=== PATIENT | female | born 1950 | race American Indian/Alaskan Native ===

== ENCOUNTER 2016-09-02 08:57 | Inpatient (IN) | payer MEDICARE ==
[2016-09-02] MEDS ORDERED: DULCOLAX PR PRN (11:19)
[2016-09-02] MEDS ORDERED: ZOFRAN IV PRN (11:19)
[2016-09-02] MEDS ORDERED: MILK OF MAGNESIA PO PRN (11:19)
--- NOTE | 2016-09-02 11:46 | History and Physical Report ---
History of Present Illness Chief complaint: [place] from nephrology clinic for worsening renal function History of present illness: 65-year-old woman with past medical history of htn who was following up in nephrology clinic . She had a creatinine of about 1.4 and her most recent creatinine went up to 5.6. She had been recently recent very to nephrology clinic for mild chronic kidney disease but then recently had a worsening of renal function Of note there was elevated globulin which was concerning for multiple myeloma. Therefore Dr Onofre her ux ui designer called for direct admission. She has been having foul smelling urine for a few days, denies dysuria, denies dark urine, urine production is neither increased or decreased; she thinks the quantity is unchanged. She does admit to poor by mouth intake for the past few days, and poor appetite, she states that foods appear to have lost their taste or taste funny, she also feels generalized weakness. She admits that she appears to be having reflux which he admits is chronic still complaining of some other chronic complaints which include chronic postnasal drip, sinus congestion and bilateral knee pain from osteoarthritis., denies vomiting, denies fever denies chills denies flank pain. Past History Past Medical History: hypertension, other (chronic sinus congestion, bilateral knee osteoarthritis) Past Surgical History: cholecystectomy (in the 1980s) Social history: no significant social history, other (retired used to work in for a [employer]) Family history: cancer (sister of liver cancer) Medications and Allergies Allergies Allergy/AdvReac Type Severity Reaction Status Date / Time No Known Allergies Allergy Unverified 09/02/16 11:36 Home Medications Medication Instructions Recorded Confirmed Last Taken Type Claritin 10 mg 09/02/16 Unknown History Coreg 25 mg BID 09/02/16 09/02/16 Unknown History Omeprazole 40 mg PRN 09/02/16 Unknown History Valsartan-Hctz 320-25 mg Tab PO DAILY 09/02/16 09/02/16 07:00 History Verapamil ER 300 mg 09/02/16 09/01/16 21:30 History Active Meds: Active Medications Acetaminophen (Tylenol) 650 mg PO Q4H PRN PRN Reason: Pain MILD(1-3)/Fever >100.5/HENRY Bisacodyl (Dulcolax) 10 mg CA QDAY PRN PRN Reason: Constipation unrelieved by MOM Heparin Sodium (Porcine) (Heparin) 5,000 unit SUB-Q Q8HR ANN Sodium Chloride (Nacl 0.45% 1000 Ml) 1,000 mls @ 75 mls/hr IV DIRECT ANN Magnesium Hydroxide (Milk Of Magnesia) 30 ml PO Q4H PRN PRN Reason: Constipation Ondansetron HCl (Zofran) 4 mg IV Q8H PRN PRN Reason: N/V unrelieved by Reglan Review of Systems Constitutional: anorexia, fatigue, malaise Ears, nose, mouth and throat: sinus pressure, sinus pain Musculoskeletal: low back pain, arthritis Exam - Constitutional General appearance: Present: no acute distress, well-nourished - EENT Eyes: Present: PERRL ENT: hearing intact, clear oral mucosa - Neck Neck: Present: supple, normal ROM - Respiratory Respiratory effort: normal Respiratory: bilateral: CTA - Cardiovascular Heart Sounds: Present: S1 & S2. Absent: rub, click - Extremities Extremities: pulses symmetrical, No edema Peripheral Pulses: within normal limits - Abdominal General gastrointestinal: Present: soft, non-tender, non-distended, normal bowel sounds Female genitourinary: Present: normal - Integumentary Integumentary: Present: clear, warm, dry - Musculoskeletal Musculoskeletal: gait normal, strength equal bilaterally - Psychiatric Psychiatric: appropriate mood/affect, intact judgment & insight - Neurologic Neurologic: CNII-XII intact, moves all extremities Results - Labs Labs: Labs which were done at the nephrology clinic were reviewed Shows a creatinine of 5.67 total protein of 10 albumin of 3.8 Assessment and Plan Assessment and plan: 65-year-old woman with acute on chronic kidney failure 1. Acute on chronic kidney failure, GFR currently places her at stage V Nephrology has been consulted, will start her on a trial of IV fluids, obtain renal ultrasound Obtain UA and urine sodium and urine creatinine and urine for eosinophils, check renal function Plan for possible kidney biopsy tomorrow 2. Hyperglobulinemia Nephrology aware, obtaining further workup for suspected multiple myeloma Obtain UPEP and SPEP 3. Hypertension Resume home medications 4. Chronic sinus congestion [place] nasal spray 5. DVT prophylaxis Heparin subcutaneous Plan of care discussed with patient/family: Yes
[2016-09-02] MEDS: NACL 0.45% 1000 ML 1,000 ML IV SCH (14:01)
[2016-09-02] MEDS: HEPARIN SUB-Q SCH ×2 (14:01→22:32)
[2016-09-02] MEDS ORDERED: SENOKOT S PO PRN (14:28)
[2016-09-02] MEDS ORDERED: MIRALAX 3350 PO PRN (14:28)
--- NOTE | 2016-09-02 15:34 | Consultation ---
History of Present Illness - Reason for Consult Consult date: 09/02/16 acute renal failure Requesting physician: MARY ANN YEE - History of Present Illness Mrs. Cordero is a 65-year-old female with past medical history significant for hypertension and diet-controlled diabetes was seen in the office by me yesterday on consultation. She had a serum creatinine of 5.6 from a lab done last week. She has been feeling poorly. Her appetite has not been too good for the last week or 2. She has had some nausea as well. Denies any significant nonsteroidal intake. No fever no shortness of breath. She has been complaining of some sinus congestion as well. Patient states that she gets labs done to her PCP every 3-6 months. Apparently her serum creatinine was 1.4 in April of this year. I did was 1.8 on 1 other check. Past History Past Medical History: hypertension, other (chronic sinus congestion, bilateral knee osteoarthritis) Past Surgical History: cholecystectomy (in the 1980s) Social history: no significant social history, other (retired used to work in for a [employer] company) Family history: cancer (sister of liver cancer) Medications and Allergies Allergies Allergy/AdvReac Type Severity Reaction Status Date / Time No Known Allergies Allergy Unverified 09/02/16 11:36 Home Medications Medication Instructions Recorded Confirmed Last Taken Type Claritin 10 mg 09/02/16 Unknown History Coreg 25 mg BID 09/02/16 09/02/16 Unknown History Omeprazole 40 mg PRN 09/02/16 Unknown History Valsartan-Hctz 320-25 mg Tab PO DAILY 09/02/16 09/02/16 07:00 History Verapamil ER 300 mg 09/02/16 09/01/16 21:30 History Active Meds: Active Medications Acetaminophen (Tylenol) 650 mg PO Q4H PRN PRN Reason: Pain MILD(1-3)/Fever >100.5/HENRY Bisacodyl (Dulcolax) 10 mg ID QDAY PRN PRN Reason: Constipation unrelieved by MOM Heparin Sodium (Porcine) (Heparin) 5,000 unit SUB-Q Q8HR ANN Last Admin: 09/02/16 14:01 Dose: 5,000 unit Sodium Chloride (Nacl 0.45% 1000 Ml) 1,000 mls @ 75 mls/hr IV DIRECT ANN Last Admin: 09/02/16 14:01 Dose: 75 mls/hr Miscellaneous Medication (Coreg) 25 mg PO BID ANN Miscellaneous Medication (Omeprazole) 40 mg PO DAILY ANN Miscellaneous Medication (Verapamil Er) 300 mg PO DAILY ANN Ondansetron HCl (Zofran) 4 mg IV Q8H PRN PRN Reason: N/V unrelieved by Reglan Polyethylene Glycol (Miralax [id number]) 17 gm PO QDAY PRN PRN Reason: Constipation Senna/Docusate Sodium (Senokot S) 2 tab PO Q12H PRN PRN Reason: Laxative Effect Sodium Chloride (Deep Sea) 1 spray NS QID ANN Review of Systems All systems: negative (negative except as noted above) Exam - General Appearance General appearance: well-developed, well-nourished, appears stated age EENT: PERRL, mucous membranes moist Neck: Present: neck supple, trachea midline. Absent: JVD/HJR, Masses Respiratory: Clear to Ascultation Heart: regular, normal heart rate Gastrointestinal: Present: normal, normoactive bowel sounds Integumentary: no rash, other (no edema) Neurologic: no focal deficit, alert and oriented x3 Assessment and Plan Impression * Acute renal failure. Her globulin level was also elevated. Total protein was greater than 10. Need to rule out myeloma kidney. She also has some sinus symptoms. Cait's needs to be ruled out as well. She may have a prerenal component as well * Nausea. May be due to her renal failure * History of hypertension * Arthritis Recommendations * Shall check a UA as well as a fractional excretion of sodium. Her urine yesterday showed 2+ dipstick protein and a few red cells. * Patient is currently having a renal ultrasound done. Right kidney is approximately 12 cm with good cortical thickness * Shall check vasculitis workup * Shall also check her coags. She will most likely need a kidney biopsy. * Shall hydrate her gently at this time * If patient renal function continues and/or if her symptoms persists, may need to initiate renal replacement therapy * Hold off on her ARB as well as diuretic for now * Avoid nephrotoxins * Adjust meds for GFR less than 10 at this time * Plan of care discussed with patient at length. Had also discussed with her daughter yesterday * Thank you very much for the consultation. Shall follow along with you
[2016-09-02 17:18] LABS: Basophils % (Auto) 0.4 % (0.0-1.8); Eosinophils % (Auto) 0.9 % (0.0-4.3); Hematocrit 21.7 % (30.3-42.9); Hemoglobin 7.2 gm/dl (10.1-14.3); Mean Corpuscular HGB Conc 33 % (30-34); Mean Corpuscular Hemoglobin 29 pg (28-32); Mean Corpuscular Volume 87 fl (79-97); Platelet Count 178 K/mm3 (140-440); Red Blood Count 2.49 M/mm3 (3.65-5.03); Red Cell Distribution Width 16.8 % (13.2-15.2)
[2016-09-02 17:23] LABS: Albumin 3.3 g/dL (3.9-5); Albumin/Globulin Ratio 0.5 %; Alkaline Phosphatase 45 units/L (35-129); Anion Gap 22 mmol/L; Blood Urea Nitrogen 35 mg/dL (7-17); Calcium 9.7 mg/dL (8.4-10.2); Carbon Dioxide 26 mmol/L (22-30); Chloride 95.2 mmol/L (98-107); Glucose 74 mg/dL (65-100); Potassium 3.7 mmol/L (3.6-5.0); Sodium 139 mmol/L (137-145); Total Protein 10.6 g/dL (6.3-8.2)
[2016-09-02 17:26] LABS: Alanine Aminotransferase < 5 units/L (7-56)
[2016-09-02] MEDS: DEEP SEA NS SCH ×2 (18:12→22:29)
[2016-09-02] MEDS ORDERED: NON-FORMULARY (Coreg 25 MG) PO SCH (22:00)
[2016-09-02] MEDS: COREG PO SCH (22:28)
[2016-09-02 23:45] LABS: Fractional Sodium Excretion 2.7
[2016-09-03 00:10] LABS: Bacteria,Urine 1+ /HPF (Negative); Bilirubin,Urine NEG (Negative); Blood,Urine SM (Negative); Ketones,Urine NEG (Negative); Leukocyte Esterase,Urine MOD (Negative); Mucus,Urine FEW /HPF; Nitrite,Urine NEG (Negative); Urobilinogen,Urine < 2.0 mg/dL (<2.0)
[2016-09-03] MEDS: NACL 0.45% 1000 ML 1,000 ML IV SCH ×2 (02:55→16:22)
[2016-09-03] MEDS: HEPARIN SUB-Q SCH (05:23)
--- NOTE | 2016-09-03 06:54 | Admit Criteria Form ---
Admission Criteria Documentation: RENAL FAILURE, ACUTE Clinical Indications for Admission to Inpatient Care ( Place 'X' for any and all applicable criteria): Admission is indicated for ALL (if I & II) or III of the following [A](2)(3)(4)( 5)(6)(7): [ ]I. Acute renal failure as indicated by ANY ONE of the following: [ ]a) A 3-fold rise in serum creatinine from baseline [ ]b) Serum creatinine greater than 4 mg/dL (354 micromoles/L) with an acute rise greater than 0.5 mg/dL (44.2 micromoles/L) [ ]c) Reduction of more than 75% in estimated glomerular filtration rate from baseline [ ]d) Estimated glomerular filtration rate less than 35 mL/min/1.73m2 (0.59mL/sec/1.73m2)in a child up to 18 years of age [ ]e) Anuria indicated by ALL of the following: [ ]i) Adequate volume status [ ]ii) Cessation of urine output indicated by ANY ONE of the following: [ ]1) Urine output less than 0.3 mL/kg/hr for 24 hours [ ]2) Anuria (urine output less than 0.1 mL/kg/ hr) for 12 hours [ ] II. Renal failure cannot be managed in an outpatient setting or observational care setting as indicating by ANY ONE of the following: [ ]a) Altered mental status that is severe or persistent [ ]b) Volume overload or Respiratory distress (eg, clinically significant pulmonary edema) that is severe or persistent [ ]c) Cardiac arrhythmias of immediate concern [ ]d) Hemodynamic instability [ ]e) Clinically significant electrolyte abnormality that requires inpatient care (eg, hyperkalemia with severe ECG findings)[B] [ ]f) Clinically significant metabolic abnormality (eg, acidosis) that is severe or persistent [ ]g) Acute treatment of renal failure (eg, renal replacement therapy) not feasible or appropriate in observational care setting [ ]h) Clinical situation too unstable or uncertain (eg, inadequate urine output, ongoing decline in renal function, etiology unclear) [ ]i) Necessary support and caregiver ability to comply with outpatient treatment cannot be arranged in observation care timeframe (eg, within 24 hours) [ ]j) Other significant finding or clinical condition judged not to be within scope of observation care [ X]III.General contraindications and/or Inappropriate clinical situations for Observational Care in patients with Acute Renal Failure, when ANY ONE of the following is required: [ X]a) Prediction of prolongation of LOS based on ANY ONE of the following may be considered as a contraindication for observational care 2, 3, 4, 5, 6, 7, 8 , 9, 10, 11 [X ]i) Age > 65 yrs. [ ]ii) Patient arriving by ambulance [ ]iii) Patient with high acuity [ ]iv) Patient requiring vital sign monitoring [ ]v) Patient on IV medication [ ]b) Systolic blood pressures 180mmHg 3,12 [ ]c) Patient with altered mental status including delirium and other alteration of consciousness, (3) [ ]d) Patient whose discharge disposition will be to a longterm home or rehabilitation home should not be managed in Emergency Department Observation Unit. CMS rule requires 3 days hospital stay before such placement.3,13 [ ]e) Patient with failure to thrive due to broad array of etiologies 3, 16,17 [ ]f) Inability to ambulate 3,14 Extended stay beyond goal length of stay may be needed for(13) [ ]a) Continuing uremic complications [ ]b) Care for comorbidities [ ]c) acute renal failure [ ]d) Need for dialysis The original [employer] content created by [employer] has been revised. The portions of the content which have been revised are identified through the use of italic text or in bold, and [facility] has neither reviewed nor approved the modified material. All other unmodified content is copyright [employer]. Please see references footnoted in the original [employer] edition 2016 Admission Criteria Met: Yes
[2016-09-03 07:42] LABS: Basophils % (Auto) 0.6 % (0.0-1.8); Hematocrit 21.1 % (30.3-42.9); Hemoglobin 6.9 gm/dl (10.1-14.3); Mean Corpuscular HGB Conc 33 % (30-34); Mean Corpuscular Hemoglobin 28 pg (28-32); Mean Corpuscular Volume 87 fl (79-97); Platelet Count 167 K/mm3 (140-440); Red Blood Count 2.44 M/mm3 (3.65-5.03); Red Cell Distribution Width 16.3 % (13.2-15.2); White Blood Count 5.5 K/mm3 (4.5-11.0)
[2016-09-03 07:49] LABS: INR 1.13 (0.87-1.13)
[2016-09-03 07:50] LABS: Partial Thromboplastin Time 40.7 Sec. (24.2-36.6)
[2016-09-03 07:53] LABS: Albumin/Globulin Ratio 0.4 %; Alkaline Phosphatase 40 units/L (35-129); Anion Gap 22 mmol/L; BUN/Creatinine Ratio 7.29; Blood Urea Nitrogen 35 mg/dL (7-17); Calcium 9.4 mg/dL (8.4-10.2); Carbon Dioxide 25 mmol/L (22-30); Chloride 96.2 mmol/L (98-107); Glucose 74 mg/dL (65-100); Potassium 3.6 mmol/L (3.6-5.0); Sodium 140 mmol/L (137-145); Total Protein 9.9 g/dL (6.3-8.2)
[2016-09-03 08:04] LABS: Alanine Aminotransferase < 5 units/L (7-56)
[2016-09-03] MEDS: DEEP SEA NS SCH ×3 (09:29→21:21)
[2016-09-03] MEDS: CALAN SR PO SCH ×2 (09:30→09:31)
[2016-09-03] MEDS: PROTONIX PO SCH (09:31)
[2016-09-03] MEDS: COREG PO SCH ×2 (09:32→21:21)
--- NOTE | 2016-09-03 09:44 | Ultrasound Report ---
ULTRASOUND RENAL INDICATION: ALEX. COMPARISON: None similar. FINDINGS: Renal sonography suggests mild increased renal cortical echogenicity. Grossly preserved contours. No hydronephrosis. RIGHT KIDNEY measures 12.1 x 5.3 x 5 cm with cortical thickness of 1.5 cm. Approximately 1.8 x 1 cm cortical cyst superiorly, image 14 and a 2.1 x 1.2 cm cortical cyst inferiorly, image 2 noted. LEFT KIDNEY estimated at 11.9 x 5.4 x 4.4 cm with cortical thickness of 1.6 cm. At least 2 cortical cysts superiorly measuring approximately 1.5 cm, image 24 and 2.5 x 1.3 cm, image 32. Another approximately 1 cm cortical cyst inferiorly also seen, image 22. URINARY BLADDER suboptimally distended and assessed. CONCLUSION: Small bilateral renal cysts and mild underlying medical renal disease sonographically without acute renal abnormality. Please correlate. Thank you for the opportunity to participate in this patient's care.
[2016-09-03] MEDS ORDERED: NON-FORMULARY (Omeprazole 40 MG) PO SCH (10:00)
[2016-09-03] MEDS ORDERED: VERAPAMIL 300 MG PO SCH (10:00)
[2016-09-03] MEDS ORDERED: NACL 0.9% 250ML 250 ML ONE (11:47)
--- NOTE | 2016-09-03 13:11 | Progress Note ---
Assessment and Plan - Patient Problems (1) Acute on chronic kidney failure Current Visit: Yes Status: Acute Qualifiers: Acute renal failure type: A Chronic kidney disease stage: C Plan to address problem: ? cause for worsening renal function. May be prerenal? int nephritis or GN or paraproteinemia. Discussed with pt and daughter in detail about the work up including kidney biopsy-informed of the risk and benefit of kidney biopsy. Stop Heparin. Discussed with Dr. Waterman-hospitalist. Pt has severe symptomatic anemia-suggest hematology consult- may need work up for hyperproteinemia including bone marrow. Discussed with - lab head. Continue present hydration (2) Anemia Current Visit: Yes Status: Acute Qualifiers: Anemia type: A Iron deficiency anemia type: I Vitamin B12 deficiency anemia type: V Folate deficiency anemia type: F Bone marrow failure anemia type: B Hemolytic anemia type: H Other causes of anemia: O Plan to address problem: pt is hesitant to get PRBC at present (3) HTN (hypertension) Current Visit: Yes Status: Acute Qualifiers: Hypertension type: H Plan to address problem: BP under control. Continue present meds. If pt has constipation problem- may consider switching verapamil to different CCB. (4) Hyperproteinemia Current Visit: Yes Status: Acute (5) Nausea Current Visit: Yes Status: Acute Subjective Date of service: 09/03/16 Interval history: pt is alert, oriented, feels weak and tired. Denies CP or SOB. C/O nausea, poor appetite Objective - Vital Signs Vital signs: Vital Signs - 12hr 09/03/16 09/03/16 09/03/16 08:00 09:30 09:31 Temperature 98.1 F Pulse Rate 74 74 Pulse Rate [ 74 Left Radial] Respiratory 18 Rate Blood Pressure 160/98 160/98 Blood Pressure 160/98 [Left Radial Artery] O2 Sat by Pulse 98 Oximetry 09/03/16 09:32 Temperature Pulse Rate 74 Pulse Rate [ Left Radial] Respiratory Rate Blood Pressure 160/98 Blood Pressure [Left Radial Artery] O2 Sat by Pulse Oximetry - General Appearance General appearance: well-developed EENT: mucous membranes moist Neck: no JVD, supple Respiratory: Present: Clear to Ascultation Cardiology: regular, systolic murmur Gastrointestinal: normoactive bowel sounds Neurologic: alert and oriented x3 Musculoskeletal: other (no edema) - Lab 09/03/16 06:59 09/03/16 06:59 Most recent lab results Calcium 9.4 mg/dL (8.4-10.2) 09/03/16 06:59 Urine Creatinine 82.7 mg/dL (0.1-20.0) H 09/02/16 23:00 Urine Sodium 77 mEq/L 09/02/16 23:00 Urine Total Protein 198 mg/dL (5-11.8) H 09/02/16 23:00 - Imaging Kidney/bladder ultrasound: report reviewed
[2016-09-03] MEDS ORDERED: NACL 0.9% 500 ML 500 ML IV ONE (14:00)
--- NOTE | 2016-09-03 14:06 | Progress Note ---
Assessment and Plan Assessment and plan: 65-year-old woman with acute on chronic kidney failure 1. Acute on chronic kidney failure, GFR currently places her at stage V Nephrology has been consulted, will start her on a trial of IV fluids, obtain renal ultrasound UA negative, no casts seen, urine eosinophils negative, fup ANCA, complement level, DS-DNA, fup renal US Plan for possible kidney biopsy tomorrow 2. Hyperglobulinemia Nephrology aware, obtaining further workup for suspected multiple myeloma Follow-up UPEP and SPEP Hematology consults 3. Hypertension Resume home medications 4. Chronic sinus congestion [place] nasal spray 5. Anemia of chronic Disease -transfuse 1 unit prbc fup hg DVT prophylaxis Heparin subcutaneous History Interval history: Admits to fatigue and malaise. Has no other complaints Hospitalist Physical - Physical exam Narrative exam: General: Patient appears well in no distress HEENT: MMM, EOMI cardiac: S1-S2 heard lungs: clear to auscultation, abdomen: soft, nontender, nondistended bowel sounds positive extremities: no edema clubbing or cyanosis Skin: no rash or lesion Neuro: no focal deficit Psych: appropriate behavior and mood, cognition intact - Constitutional Vitals: Temp Pulse Resp BP Pulse Ox 98.1 F 74 18 160/98 98 09/03/16 08:00 09/03/16 09:32 09/03/16 08:00 09/03/16 09:32 09/03/16 08:00 General appearance: Present: no acute distress, well-nourished Results - Labs CBC & Chem 7: 09/04/16 06:28 09/03/16 06:59 Labs: Laboratory Last Values WBC 5.5 K/mm3 (4.5-11.0) 09/03/16 06:59 RBC 2.44 M/mm3 (3.65-5.03) L 09/03/16 06:59 Hgb 6.9 gm/dl (10.1-14.3) L 09/03/16 06:59 Hct 21.1 % (30.3-42.9) L 09/03/16 06:59 MCV 87 fl (79-97) 09/03/16 06:59 MCH 28 pg (28-32) 09/03/16 06:59 MCHC 33 % (30-34) 09/03/16 06:59 RDW 16.3 % (13.2-15.2) H 09/03/16 06:59 Plt Count 167 K/mm3 (140-440) 09/03/16 06:59 Lymph % (Auto) 51.4 % (13.4-35.0) H 09/03/16 06:59 [place] % (Auto) 8.9 % (0.0-7.3) H 09/03/16 06:59 Eos % (Auto) 1.0 % (0.0-4.3) 09/03/16 06:59 Baso % (Auto) 0.6 % (0.0-1.8) 09/03/16 06:59 Lymph # 2.8 K/mm3 (1.2-5.4) 09/03/16 06:59 [place] # 0.5 K/mm3 (0.0-0.8) 09/03/16 06:59 Eos # 0.1 K/mm3 (0.0-0.4) 09/03/16 06:59 Baso # 0.0 K/mm3 (0.0-0.1) 09/03/16 06:59 Seg Neutrophils % 38.1 % (40.0-70.0) L 09/03/16 06:59 Seg Neutrophils # 2.1 K/mm3 (1.8-7.7) 09/03/16 06:59 PT 14.4 Sec. (12.2-14.9) 09/03/16 06:59 INR 1.13 (0.87-1.13) 09/03/16 06:59 APTT 40.7 Sec. (24.2-36.6) H 09/03/16 06:59 Sodium 140 mmol/L (137-145) 09/03/16 06:59 Potassium 3.6 mmol/L (3.6-5.0) 09/03/16 06:59 Chloride 96.2 mmol/L (98-107) L 09/03/16 06:59 Carbon Dioxide 25 mmol/L (22-30) 09/03/16 06:59 Anion Gap 22 mmol/L 09/03/16 06:59 BUN 35 mg/dL (7-17) H 09/03/16 06:59 Creatinine 4.8 mg/dL (0.7-1.2) H 09/03/16 06:59 Estimated GFR 11 ml/min 09/03/16 06:59 BUN/Creatinine Ratio 7.29 % 09/03/16 06:59 Glucose 74 mg/dL (65-100) 09/03/16 06:59 Calcium 9.4 mg/dL (8.4-10.2) 09/03/16 06:59 Total Bilirubin 0.20 mg/dL (0.1-1.2) 09/03/16 06:59 AST 10 units/L (5-40) 09/03/16 06:59 ALT < 5 units/L (7-56) L 09/03/16 06:59 Alkaline Phosphatase 40 units/L (35-129) 09/03/16 06:59 Total Protein 9.9 g/dL (6.3-8.2) H 09/03/16 06:59 Albumin 3.0 g/dL (3.9-5) L 09/03/16 06:59 Albumin/Globulin Ratio 0.4 % 09/03/16 06:59 Urine Color Straw (Yellow) 09/02/16 23:00 Urine Turbidity Clear (Clear) 09/02/16 23:00 Urine pH 7.0 (5.0-7.0) 09/02/16 23:00 Ur Specific [place] 1.009 (1.003-1.030) 09/02/16 23:00 Urine Protein 30 mg/dl mg/dL (Negative) 09/02/16 23:00 Urine Glucose (UA) Neg mg/dL (Negative) 09/02/16 23:00 Urine Ketones Neg mg/dL (Negative) 09/02/16 23:00 Urine Blood Sm (Negative) 09/02/16 23:00 Urine Nitrite Neg (Negative) 09/02/16 23:00 Urine Bilirubin Neg (Negative) 09/02/16 23:00 Urine Urobilinogen < 2.0 mg/dL (<2.0) 09/02/16 23:00 Ur Leukocyte Esterase Mod (Negative) 09/02/16 23:00 Urine WBC (Auto) 6.0 /HPF (0.0-6.0) 09/02/16 23:00 Urine RBC (Auto) 2.0 /HPF (0.0-6.0) 09/02/16 23:00 U Epithel Cells (Auto) 2.0 /HPF (0-13.0) 09/02/16 23:00 Urine Bacteria (Auto) 1+ /HPF (Negative) 09/02/16 23:00 Urine Mucus Few /HPF 09/02/16 23:00 Urine Eosinophils None seen (None Seen) 09/02/16 23:00 Urine Creatinine 82.7 mg/dL (0.1-20.0) H 09/02/16 23:00 Protein/Creatinin Ratio 2.39 09/02/16 23:00 Urine Sodium 77 mEq/L 09/02/16 23:00 Fraction Sodium Excret 2.7 09/02/16 23:00 Urine Total Protein 198 mg/dL (5-11.8) H 09/02/16 23:00 Hepatitis A IgM Ab Non-reactive (NonReactive) 09/02/16 16:38 Hep Bs Antigen Non-reactive (Negative) 09/02/16 16:38 Hep B Core IgM Ab Non-reactive (NonReactive) 09/02/16 16:38 Hepatitis C Antibody Non-reactive (NonReactive) 09/02/16 16:38 Blood Type AB POSITIVE 09/03/16 11:03 Antibody Screen TNR 09/03/16 11:03 HAL Antibody Screen Negative 09/03/16 11:03 Crossmatch See Detail 09/03/16 11:03
[2016-09-03 16:30] LABS: Total Iron Binding Capacity 242.2 mcg/dL (250-450)
[2016-09-03] MEDS: TYLENOL PO PRN (21:22)
[2016-09-04 06:49] LABS: Basophils % (Auto) 0.5 % (0.0-1.8); Eosinophils % (Auto) 1.2 % (0.0-4.3); Hematocrit 24.8 % (30.3-42.9); Hemoglobin 8.2 gm/dl (10.1-14.3); Mean Corpuscular HGB Conc 33 % (30-34); Mean Corpuscular Hemoglobin 28 pg (28-32); Mean Corpuscular Volume 85 fl (79-97); Platelet Count 155 K/mm3 (140-440); Red Blood Count 2.93 M/mm3 (3.65-5.03); Red Cell Distribution Width 16.1 % (13.2-15.2); White Blood Count 5.6 K/mm3 (4.5-11.0)
--- NOTE | 2016-09-04 07:06 | Progress Note ---
Assessment and Plan Assessment and plan: 65-year-old woman with acute on chronic kidney failure 1. Acute on chronic kidney failure, GFR currently places her at stage V Nephrology has been consulted, will start her on a trial of IV fluids, obtain renal ultrasound UA negative, no casts seen, urine eosinophils negative, fup ANCA, complement level, DS-DNA, fup renal US For kidney biopsy today 2. Hyperglobulinemia Nephrology aware, obtaining further workup for suspected multiple myeloma fup UPEP and SPEP Hematology input appreciated, plan for bone marrow biopsy, patient is hesitant about getting it and would like to wait. 3. Accelerated Hypertension Continue beta twyla and verapamil, BALTA inhibitor held due to acute renal failure Add hydralazine 4. Chronic sinus congestion [place] nasal spray 5. Anemia of chronic Disease -transfused 1 unit prbc With adequate rise in hemoglobin DVT prophylaxis Heparin subcutaneous History Interval history: Admits to fatigue which is improved. Has no other complaints Hospitalist Physical - Physical exam Narrative exam: General: Patient appears well in no distress HEENT: MMM, EOMI cardiac: S1-S2 heard lungs: clear to auscultation, abdomen: soft, nontender, nondistended bowel sounds positive extremities: no edema clubbing or cyanosis Skin: no rash or lesion Neuro: no focal deficit Psych: appropriate behavior and mood, cognition intact - Constitutional Vitals: Temp Pulse Resp BP Pulse Ox 98.2 F 58 L 16 164/89 98 09/04/16 06:11 09/04/16 06:11 09/04/16 06:11 09/04/16 06:11 09/03/16 22:00 General appearance: Present: no acute distress, well-nourished Results - Labs CBC & Chem 7: 09/04/16 06:28 09/03/16 06:59 Labs: Laboratory Last Values WBC 5.6 K/mm3 (4.5-11.0) 09/04/16 06:28 RBC 2.93 M/mm3 (3.65-5.03) L 09/04/16 06:28 Hgb 8.2 gm/dl (10.1-14.3) L 09/04/16 06:28 Hct 24.8 % (30.3-42.9) L 09/04/16 06:28 MCV 85 fl (79-97) 09/04/16 06:28 MCH 28 pg (28-32) 09/04/16 06:28 MCHC 33 % (30-34) 09/04/16 06:28 RDW 16.1 % (13.2-15.2) H 09/04/16 06:28 Plt Count 155 K/mm3 (140-440) 09/04/16 06:28 Lymph % (Auto) 44.2 % (13.4-35.0) H 09/04/16 06:28 [place] % (Auto) 9.6 % (0.0-7.3) H 09/04/16 06:28 Eos % (Auto) 1.2 % (0.0-4.3) 09/04/16 06:28 Baso % (Auto) 0.5 % (0.0-1.8) 09/04/16 06:28 Lymph # 2.5 K/mm3 (1.2-5.4) 09/04/16 06:28 [place] # 0.5 K/mm3 (0.0-0.8) 09/04/16 06:28 Eos # 0.1 K/mm3 (0.0-0.4) 09/04/16 06:28 Baso # 0.0 K/mm3 (0.0-0.1) 09/04/16 06:28 Seg Neutrophils % 44.5 % (40.0-70.0) 09/04/16 06:28 Seg Neutrophils # 2.5 K/mm3 (1.8-7.7) 09/04/16 06:28 PT 14.4 Sec. (12.2-14.9) 09/03/16 06:59 INR 1.13 (0.87-1.13) 09/03/16 06:59 APTT 40.7 Sec. (24.2-36.6) H 09/03/16 06:59 Sodium 140 mmol/L (137-145) 09/03/16 06:59 Potassium 3.6 mmol/L (3.6-5.0) 09/03/16 06:59 Chloride 96.2 mmol/L (98-107) L 09/03/16 06:59 Carbon Dioxide 25 mmol/L (22-30) 09/03/16 06:59 Anion Gap 22 mmol/L 09/03/16 06:59 BUN 35 mg/dL (7-17) H 09/03/16 06:59 Creatinine 4.8 mg/dL (0.7-1.2) H 09/03/16 06:59 Estimated GFR 11 ml/min 09/03/16 06:59 BUN/Creatinine Ratio 7.29 % 09/03/16 06:59 Glucose 74 mg/dL (65-100) 09/03/16 06:59 Calcium 9.4 mg/dL (8.4-10.2) 09/03/16 06:59 Iron 56 ug/dL (37-170) 09/03/16 06:59 TIBC 242.20 mcg/dL (250-450) L 09/03/16 06:59 % Saturation 23.12 % 09/03/16 06:59 Transferrin 173 mg/dl (192-382) L 09/03/16 06:59 Ferritin 200.9 ng/mL (13.0-400.0) 09/03/16 17:19 Total Bilirubin 0.20 mg/dL (0.1-1.2) 09/03/16 06:59 AST 10 units/L (5-40) 09/03/16 06:59 ALT < 5 units/L (7-56) L 09/03/16 06:59 Alkaline Phosphatase 40 units/L (35-129) 09/03/16 06:59 Total Protein 9.9 g/dL (6.3-8.2) H 09/03/16 06:59 Albumin 3.0 g/dL (3.9-5) L 09/03/16 06:59 Albumin/Globulin Ratio 0.4 % 09/03/16 06:59 Vitamin B12 305.3 pg/mL (211-911) 09/03/16 17:19 Folate 9.82 ng/mL (7.3-26.0) 09/03/16 17:19 Urine Color Straw (Yellow) 09/02/16 23:00 Urine Turbidity Clear (Clear) 09/02/16 23:00 Urine pH 7.0 (5.0-7.0) 09/02/16 23:00 Ur Specific [place] 1.009 (1.003-1.030) 09/02/16 23:00 Urine Protein 30 mg/dl mg/dL (Negative) 09/02/16 23:00 Urine Glucose (UA) Neg mg/dL (Negative) 09/02/16 23:00 Urine Ketones Neg mg/dL (Negative) 09/02/16 23:00 Urine Blood Sm (Negative) 09/02/16 23:00 Urine Nitrite Neg (Negative) 09/02/16 23:00 Urine Bilirubin Neg (Negative) 09/02/16 23:00 Urine Urobilinogen < 2.0 mg/dL (<2.0) 09/02/16 23:00 Ur Leukocyte Esterase Mod (Negative) 09/02/16 23:00 Urine WBC (Auto) 6.0 /HPF (0.0-6.0) 09/02/16 23:00 Urine RBC (Auto) 2.0 /HPF (0.0-6.0) 09/02/16 23:00 U Epithel Cells (Auto) 2.0 /HPF (0-13.0) 09/02/16 23:00 Urine Bacteria (Auto) 1+ /HPF (Negative) 09/02/16 23:00 Urine Mucus Few /HPF 09/02/16 23:00 Urine Eosinophils None seen (None Seen) 09/02/16 23:00 Urine Creatinine 82.7 mg/dL (0.1-20.0) H 09/02/16 23:00 Protein/Creatinin Ratio 2.39 09/02/16 23:00 Urine Sodium 77 mEq/L 09/02/16 23:00 Fraction Sodium Excret 2.7 09/02/16 23:00 Urine Total Protein 198 mg/dL (5-11.8) H 09/02/16 23:00 Hepatitis A IgM Ab Non-reactive (NonReactive) 09/02/16 16:38 Hep Bs Antigen Non-reactive (Negative) 09/02/16 16:38 Hep B Core IgM Ab Non-reactive (NonReactive) 09/02/16 16:38 Hepatitis C Antibody Non-reactive (NonReactive) 09/02/16 16:38 Blood Type AB POSITIVE 09/03/16 11:03 Antibody Screen TNR 09/03/16 11:03 HAL Antibody Screen Negative 09/03/16 11:03 Crossmatch See Detail 09/03/16 11:03
[2016-09-04] MEDS: APRESOLINE PO SCH ×3 (08:00→23:47)
[2016-09-04] MEDS ORDERED: APRESOLINE IV PRN (08:00)
[2016-09-04] MEDS: COREG PO SCH ×3 (08:55→23:49)
[2016-09-04] MEDS: DEEP SEA NS SCH ×3 (09:00→23:31)
--- NOTE | 2016-09-04 09:22 | Hem/Onc Consultation ---
History of Present Illness - Reason for Consult Consult date: 09/04/16 - History of Present Illness dictated awaiting kidney bx would need epo GI w/u pt wants to wait till kidne bx and labs back to consider epo etc may need bmbx- pt wants to wait Past History Past Medical History: hypertension, other (chronic sinus congestion, bilateral knee osteoarthritis) Past Surgical History: cholecystectomy (in the 1980s) Social history: no significant social history, other (retired used to work in for a [employer] company) Family history: cancer (sister of liver cancer) Medications and Allergies Allergies Allergy/AdvReac Type Severity Reaction Status Date / Time No Known Allergies Allergy Unverified 09/02/16 11:36 Home Medications Medication Instructions Recorded Confirmed Last Taken Type Claritin 10 mg 09/02/16 Unknown History Coreg 25 mg BID 09/02/16 09/02/16 Unknown History Omeprazole 40 mg PRN 09/02/16 Unknown History Valsartan-Hctz 320-25 mg Tab PO DAILY 09/02/16 09/02/16 07:00 History Verapamil ER 300 mg 09/02/16 09/01/16 21:30 History Active Meds: Active Medications Acetaminophen (Tylenol) 650 mg PO Q4H PRN PRN Reason: Pain MILD(1-3)/Fever >100.5/HENRY Last Admin: 09/03/16 21:22 Dose: 650 mg Bisacodyl (Dulcolax) 10 mg IA QDAY PRN PRN Reason: Constipation unrelieved by MOM Carvedilol (Coreg) 25 mg PO Q12HR ANN Last Admin: 09/04/16 08:58 Dose: 25 mg Hydralazine HCl (Apresoline) 10 mg IV Q4H PRN PRN Reason: BP >160/100 Last Admin: 09/04/16 08:59 Dose: 10 mg Hydralazine HCl (Apresoline) 10 mg PO Q8HR [facility] Sodium Chloride (Nacl 0.45% 1000 Ml) 1,000 mls @ 75 mls/hr IV DIRECT ANN Last Admin: 09/03/16 16:22 Dose: 75 mls/hr Ondansetron HCl (Zofran) 4 mg IV Q8H PRN PRN Reason: N/V unrelieved by Reglan Last Admin: 09/03/16 12:12 Dose: 4 mg Pantoprazole Sodium (Protonix) 40 mg PO DAILY [facility] Last Admin: 09/03/16 09:31 Dose: 40 mg Polyethylene Glycol (Miralax 3350) 17 gm PO QDAY PRN PRN Reason: Constipation Senna/Docusate Sodium (Senokot S) 2 tab PO Q12H PRN PRN Reason: Laxative Effect Sodium Chloride ([place]) 1 spray NS QID [facility] Last Admin: 09/03/16 21:21 Dose: Not Given Verapamil HCl (Calan Sr) 180 mg PO QDAY [facility] Last Admin: 09/03/16 09:31 Dose: 180 mg Verapamil HCl ([place] Sr) 120 mg PO QDAY [facility] Last Admin: 09/03/16 09:30 Dose: 120 mg Exam - Constitutional Vitals: Last Vital Signs Temp 98.2 F 09/04/16 06:11 Pulse 58 L 09/04/16 06:11 Resp 16 09/04/16 06:11 BP 164/89 09/04/16 06:11 Pulse Ox 98 09/03/16 22:00 Results - Labs lab Results: Laboratory Results - last 24 hr 09/03/16 09/03/16 09/03/16 06:59 11:03 17:19 WBC RBC Hgb Hct MCV MCH MCHC RDW Plt Count Lymph % (Auto) [place] % (Auto) Eos % (Auto) Baso % (Auto) Lymph # [place] # Eos # Baso # Seg Neutrophils % Seg Neutrophils # Iron 56 TIBC 242.20 L % Saturation 23.12 Transferrin 173 L Ferritin 200.9 Vitamin B12 Folate Blood Type AB POSITIVE Antibody Screen TNR HAL Antibody Screen Negative Crossmatch See Detail 09/03/16 09/03/16 09/04/16 17:19 17:19 06:28 WBC 5.6 RBC 2.93 L Hgb 8.2 L Hct 24.8 L MCV 85 MCH 28 MCHC 33 RDW 16.1 H Plt Count 155 Lymph % (Auto) 44.2 H [place] % (Auto) 9.6 H Eos % (Auto) 1.2 Baso % (Auto) 0.5 Lymph # 2.5 [place] # 0.5 Eos # 0.1 Baso # 0.0 Seg Neutrophils % 44.5 Seg Neutrophils # 2.5 Iron TIBC % Saturation Transferrin Ferritin Vitamin B12 305.3 Folate 9.82 Blood Type Antibody Screen HAL Antibody Screen Crossmatch
[2016-09-04] MEDS ORDERED: VERSED IV ONE (10:06)
[2016-09-04] MEDS ORDERED: SUBLIMAZE IV ONE (10:06)
[2016-09-04] MEDS ORDERED: APRESOLINE ONE (11:04)
[2016-09-04] MEDS ORDERED: APRESOLINE IV ONE (11:28)
--- NOTE | 2016-09-04 11:54 | Cat Scan Report ---
CT BIOPSY RENAL LEFT HISTORY: Acute renal insufficiency. DESCRIPTION OF PROCEDURE: Informed consent was obtained. Sterile technique was utilized. Conscious sedation was accomplished with Versed and fentanyl. The patient was sedated for 20 minutes. Intraobserver time of 20 minutes. Independent cardiorespiratory monitoring by RN. Using CT guidance, a 17-gauge introducer needle was advanced to the inferior pole of the left kidney. Two 18-gauge core biopsies were obtained. Followup scan demonstrated a small amount of perinephric hemorrhage at the biopsy site. No uncontained hemorrhage. The patient tolerated the procedure without difficulty. Impression: Successful CT-guided biopsy at the inferior pole of the left kidney.
[2016-09-04] MEDS: PROTONIX PO SCH (12:22)
--- NOTE | 2016-09-04 12:58 | Progress Note ---
Assessment and Plan Impression * Acute renal failure. Her globulin level was also elevated. Total protein was greater than 10. Need to rule out myeloma kidney. She also has some sinus symptoms. Cait's needs to be ruled out as well. She may have a prerenal component as well * Nausea. May be due to her renal failure * History of hypertension * Arthritis Recommendations * Her urine shows 1+ dipstick protein and small blood. Fractional excretion of sodium is 2.7% . * Her renal ultrasound essentially normal except for small cysts. * Hepatitis B and C are both negative. Awaiting results of other vasculitis workup * Patient had uneventful kidney biopsy today. Small perinephric hematoma was noted. * Shall keep her on complete bed rest for now. Monitor her vitals frequently as well as her H&H . Discussed with patient's nurse at bedside * Shall hydrate her gently at this time * No urgent indication for initiation of renal replacement therapy at this time * Hold off on her ARB as well as diuretic for now * Avoid nephrotoxins * Adjust meds for GFR less than 10 at this time Subjective Date of service: 09/04/16 Interval history: Patient just returned from her kidney biopsy. Denies any flank pain at this time. Her nausea seems to be improving. Denies any shortness of breath Objective - Vital Signs Vital signs: Vital Signs - 12hr 09/04/16 09/04/16 09/04/16 01:10 06:11 08:00 Temperature 98.2 F 98.2 F 98.3 F Pulse Rate 57 L 58 L Pulse Rate [ Intra-Procedure ] Pulse Rate [ 70 Left Radial] Pulse Rate [ Post-Procedure] Respiratory 16 16 18 Rate Respiratory Rate [Intra- Procedure] Respiratory Rate [Post- Procedure] Blood Pressure 169/88 164/89 Blood Pressure [Intra- Procedure] Blood Pressure 188/94 [Left Radial Artery] Blood Pressure [Post-Procedure ] O2 Sat by Pulse 98 Oximetry O2 Sat by Pulse Oximetry [ Intra-Procedure ] O2 Sat by Pulse Oximetry [Post -Procedure] 09/04/16 09/04/16 09/04/16 11:08 11:10 11:12 Temperature Pulse Rate Pulse Rate [ 77 74 Intra-Procedure ] Pulse Rate [ Left Radial] Pulse Rate [ Post-Procedure] Respiratory Rate Respiratory 16 20 Rate [Intra- Procedure] Respiratory Rate [Post- Procedure] Blood Pressure 206/142 Blood Pressure 183/99 134/79 [Intra- Procedure] Blood Pressure [Left Radial Artery] Blood Pressure [Post-Procedure ] O2 Sat by Pulse Oximetry O2 Sat by Pulse 98 99 Oximetry [ Intra-Procedure ] O2 Sat by Pulse Oximetry [Post -Procedure] 09/04/16 09/04/16 09/04/16 11:19 11:24 12:11 Temperature 98.4 F Pulse Rate Pulse Rate [ 73 Intra-Procedure ] Pulse Rate [ 71 Left Radial] Pulse Rate [ 74 Post-Procedure] Respiratory 16 Rate Respiratory 14 Rate [Intra- Procedure] Respiratory 20 Rate [Post- Procedure] Blood Pressure Blood Pressure 129/79 [Intra- Procedure] Blood Pressure 90/50 [Left Radial Artery] Blood Pressure 129/79 [Post-Procedure ] O2 Sat by Pulse Oximetry O2 Sat by Pulse 99 Oximetry [ Intra-Procedure ] O2 Sat by Pulse 99 Oximetry [Post -Procedure] 09/04/16 12:26 Temperature Pulse Rate Pulse Rate [ Intra-Procedure ] Pulse Rate [ 67 Left Radial] Pulse Rate [ Post-Procedure] Respiratory 16 Rate Respiratory Rate [Intra- Procedure] Respiratory Rate [Post- Procedure] Blood Pressure Blood Pressure [Intra- Procedure] Blood Pressure 113/72 [Left Radial Artery] Blood Pressure [Post-Procedure ] O2 Sat by Pulse Oximetry O2 Sat by Pulse Oximetry [ Intra-Procedure ] O2 Sat by Pulse Oximetry [Post -Procedure] - General Appearance General appearance: well-developed, well-nourished, appears stated age EENT: PERRL, mucous membranes moist Neck: no JVD, no thyromegaly, no carotid bruit, supple Respiratory: Present: Clear to Ascultation Cardiology: regular, normal heart rate, S1S2, no murmurs Gastrointestinal: normal, normoactive bowel sounds, other (dressing noted over her left flank. No flank tenderness) Integumentary: no rash, other (no edema) - Lab 09/04/16 06:28 09/03/16 06:59 Most recent lab results Calcium 9.4 mg/dL (8.4-10.2) 09/03/16 06:59 Urine Creatinine 82.7 mg/dL (0.1-20.0) H 09/02/16 23:00 Urine Sodium 77 mEq/L 09/02/16 23:00 Urine Total Protein 198 mg/dL (5-11.8) H 09/02/16 23:00
--- NOTE | 2016-09-04 13:27 | Query- Renal Failure ---
Dear ____[place] Date: 09/04/16 Senior Cost Estimator/CDS:____Arnold / Andry Phone#: [phone] Exercise your independent professional judgment when responding to query. Questions asked do not imply a particular answer is desired or expected. We greatly appreciate your clarification on this issue. Clinical Documentation States: A 65 Y/O F with PMH of HTN came for follow up of CKD but then recently had worsening of renal function. She also feels generalized weakness. PMH HTN, Chronic sinus congestion, B/L knee osteoarthritis. "Assessment and Plan: Acute on chronic kidney failure, GFR currently places her at stage V, Hyperglobulinemia, HTN, Chronic sinus Congestion, DVT prophylaxis. " [H&P, Melania Waterman 09/02/16 ] Clinical Findings Show: LABS : 09/02/2016 09/03/16 BUN 35 35 Creatinine 4.6 4.8 Urine Creatinine 82.7 83.3 GFR 12 11 T.protein 10.6 9.9 Urine Protein 198 - Albumin 3.3 3.0 Please clarify if you mean: Acute Renal Failure with or due to: [ ] Tubular Necrosis [ ] Medullary Necrosis [ ] Vasomotor Nephropathy [ ] Shock Kidney [ ] Tubular Nephrosis [ ] Renal Tubular Stasis [ ] Cortical Necrosis [ ] Acute Renal Failure (unspecified) [ ] Lower Tubular Nephrosis [ x] Other: workup still in progress [ ] Not Applicable Present on Admission: [ x] Yes (Y) [ ] Clinically undeterminable (W) [ ] No (N) Please also document response in your Progress Notes and/or Discharge Summary and indicate if the condition was present on admission. CARLOS
[2016-09-04 17:33] LABS: Hematocrit 25.9 % (30.3-42.9); Hemoglobin 8.6 gm/dl (10.1-14.3)
[2016-09-04] MEDS: TYLENOL PO PRN (23:48)
--- NOTE | 2016-09-05 02:31 | Consultation ---
REFERRING PHYSICIAN: Julieta Figueroa M.D. REASON FOR CONSULTATION: Anemia. HISTORY OF PRESENT ILLNESS: The patient is a 65-year-old female with history of hypertension, who has been patient of Dr. Payne. She was referred for renal insufficiency to Dr. Onofre. She had a creatinine of 1.4, but had a significant jump in the last few weeks to 5.6. She was also noted to have elevated globulin levels. She was admitted to the hospital for worsening renal insufficiency and worsening anemia. Her hemoglobin on admission was 6.9. The patient did undergo lab testing, which included anemia workup. Her B12 was 300 and folate 9.82. Ferritin was 200. Percent saturation 23.12. The patient's total iron binding capacity was 242. Alkaline phosphatase was 40, calcium was 9.4 on admission, albumin was 3.0, total protein of 9.9. Serum protein electrophoresis has been sent. The patient is due for kidney biopsy today. The patient denies any significant pain. She does complain of palpitations. She did receive 1 unit of packed RBC and her hemoglobin today is 8.2. Hematology consult was called for elevated globulin along with severe anemia and renal insufficiency to rule out multiple myeloma. PAST MEDICAL HISTORY: Positive for hypertension. REVIEW OF SYSTEMS: The patient has been having weight loss, and she states she has had ____ weight loss in the last month or so. She does complain of nausea and loss of appetite. FAMILY HISTORY: Positive for liver cancer in the sister. SOCIAL HISTORY: Does not smoke or drink. PHYSICAL EXAMINATION: GENERAL: The patient is a pleasant female, a bit anxious. HEAD AND EARS, NOSE AND THROAT: Reveals pallor noted in the conjunctivae. CHEST: Clear bilaterally. CVS: Regular rate and rhythm. ABDOMEN: Soft, nontender. EXTREMITIES: Has no clubbing, cyanosis or edema. LABORATORY DATA: Lab work as mentioned in the history of present illness. Other pertinent labs, the patient's PTT was 40.7, platelet count 155, white count 5.6, differential within normal limits. ASSESSMENT: Renal insufficiency with anemia and elevated globulin, all pointing towards possibility of multiple myeloma. RECOMMENDATIONS AND PLAN: At this point, I discussed with the patient about her options. I would recommend a bone marrow biopsy. The patient wants to wait that one out. She is due for a kidney biopsy today. The patient also has borderline low B12 level. I suggested B12 injections along with Procrit injections, which she wants to ____. I will follow her while she is in the hospital, but if she gets discharged I will follow up on her serum protein electrophoresis as outpatient and may be setting her up for a bone marrow biopsy as outpatient. We will follow. JOB# [id number] GIAN/TARYN
[2016-09-05] MEDS: NACL 0.45% 1000 ML 1,000 ML IV SCH (05:24)
[2016-09-05] MEDS: APRESOLINE PO SCH (05:32)
[2016-09-05 06:55] LABS: Basophils % (Auto) 0.4 % (0.0-1.8); Eosinophils % (Auto) 0.9 % (0.0-4.3); Hematocrit 25.1 % (30.3-42.9); Hemoglobin 8.3 gm/dl (10.1-14.3); Mean Corpuscular HGB Conc 33 % (30-34); Mean Corpuscular Hemoglobin 28 pg (28-32); Mean Corpuscular Volume 85 fl (79-97); Platelet Count 166 K/mm3 (140-440); Red Blood Count 2.97 M/mm3 (3.65-5.03); Red Cell Distribution Width 16.2 % (13.2-15.2); White Blood Count 6.3 K/mm3 (4.5-11.0)
[2016-09-05 07:07] LABS: BUN/Creatinine Ratio 7.02; Calcium 9.2 mg/dL (8.4-10.2); Chloride 96.5 mmol/L (98-107); Potassium 3.5 mmol/L (3.6-5.0)
--- NOTE | 2016-09-05 09:09 | Progress Note ---
Assessment and Plan Assessment and plan: 65-year-old woman with acute on chronic kidney failure 1. Acute on chronic kidney failure, GFR currently places her at stage V Nephrology input appreciated -Female is 2.7, renal ultrasound essentially normal except small cysts Hepatitis B and C are both negative, vasculitis workup still pending needs wegeners workup given sinus symptoms Status post kidney biopsy 09/04/16 follow-up pathology Continue gentle hydration, ARB has been discontinued as well as diuretic, avoid nephrotoxins Adjust meds for GFR less than 10 at this time 2. Hyperglobulinemia Nephrology aware, obtaining further workup for suspected multiple myeloma fup UPEP and SPEP Hematology input appreciated, plan for bone marrow biopsy, patient is hesitant about getting it and would like to wait. 3. Accelerated Hypertension Continue beta twyla and verapamil, BALTA inhibitor held due to acute renal failure Add hydralazine 4. Chronic sinus congestion [place] nasal spray 5. Anemia of chronic Disease -transfused 1 unit prbc With adequate rise in hemoglobin DVT prophylaxis Heparin subcutaneous History Interval history: Admits to fatigue which is improved. Has no other complaints Hospitalist Physical - Physical exam Narrative exam: General: Patient appears well in no distress HEENT: MMM, EOMI cardiac: S1-S2 heard lungs: clear to auscultation, abdomen: soft, nontender, nondistended bowel sounds positive extremities: no edema clubbing or cyanosis Skin: no rash or lesion Neuro: no focal deficit Psych: appropriate behavior and mood, cognition intact - Constitutional Vitals: Temp Pulse Resp BP Pulse Ox 98.4 F 72 19 154/87 97 09/05/16 07:00 09/05/16 07:00 09/05/16 07:00 09/05/16 07:00 09/05/16 07:00 General appearance: Present: no acute distress, well-nourished Results - Labs CBC & Chem 7: 09/05/16 06:08 09/05/16 06:08 Labs: Laboratory Last Values WBC 6.3 K/mm3 (4.5-11.0) 09/05/16 06:08 RBC 2.97 M/mm3 (3.65-5.03) L 09/05/16 06:08 Hgb 8.3 gm/dl (10.1-14.3) L 09/05/16 06:08 Hct 25.1 % (30.3-42.9) L 09/05/16 06:08 MCV 85 fl (79-97) 09/05/16 06:08 MCH 28 pg (28-32) 09/05/16 06:08 MCHC 33 % (30-34) 09/05/16 06:08 RDW 16.2 % (13.2-15.2) H 09/05/16 06:08 Plt Count 166 K/mm3 (140-440) 09/05/16 06:08 Lymph % (Auto) 38.0 % (13.4-35.0) H 09/05/16 06:08 [place] % (Auto) 9.6 % (0.0-7.3) H 09/05/16 06:08 Eos % (Auto) 0.9 % (0.0-4.3) 09/05/16 06:08 Baso % (Auto) 0.4 % (0.0-1.8) 09/05/16 06:08 Lymph # 2.4 K/mm3 (1.2-5.4) 09/05/16 06:08 [place] # 0.6 K/mm3 (0.0-0.8) 09/05/16 06:08 Eos # 0.1 K/mm3 (0.0-0.4) 09/05/16 06:08 Baso # 0.0 K/mm3 (0.0-0.1) 09/05/16 06:08 Seg Neutrophils % 51.1 % (40.0-70.0) 09/05/16 06:08 Seg Neutrophils # 3.2 K/mm3 (1.8-7.7) 09/05/16 06:08 PT 14.4 Sec. (12.2-14.9) 09/03/16 06:59 INR 1.13 (0.87-1.13) 09/03/16 06:59 APTT 40.7 Sec. (24.2-36.6) H 09/03/16 06:59 Sodium 138 mmol/L (137-145) 09/05/16 06:08 Potassium 3.5 mmol/L (3.6-5.0) L 09/05/16 06:08 Chloride 96.5 mmol/L (98-107) L 09/05/16 06:08 Carbon Dioxide 22 mmol/L (22-30) 09/05/16 06:08 Anion Gap 23 mmol/L 09/05/16 06:08 BUN 33 mg/dL (7-17) H 09/05/16 06:08 Creatinine 4.7 mg/dL (0.7-1.2) H 09/05/16 06:08 Estimated GFR 11 ml/min 09/05/16 06:08 BUN/Creatinine Ratio 7.02 % 09/05/16 06:08 Glucose 79 mg/dL (65-100) 09/05/16 06:08 Calcium 9.2 mg/dL (8.4-10.2) 09/05/16 06:08 Iron 56 ug/dL (37-170) 09/03/16 06:59 TIBC 242.20 mcg/dL (250-450) L 09/03/16 06:59 % Saturation 23.12 % 09/03/16 06:59 Transferrin 173 mg/dl (192-382) L 09/03/16 06:59 Ferritin 200.9 ng/mL (13.0-400.0) 09/03/16 17:19 Total Bilirubin 0.20 mg/dL (0.1-1.2) 09/03/16 06:59 AST 10 units/L (5-40) 09/03/16 06:59 ALT < 5 units/L (7-56) L 09/03/16 06:59 Alkaline Phosphatase 40 units/L (35-129) 09/03/16 06:59 Total Protein 9.9 g/dL (6.3-8.2) H 09/03/16 06:59 Albumin 3.0 g/dL (3.9-5) L 09/03/16 06:59 Albumin/Globulin Ratio 0.4 % 09/03/16 06:59 Vitamin B12 305.3 pg/mL (211-911) 09/03/16 17:19 Folate 9.82 ng/mL (7.3-26.0) 09/03/16 17:19 Urine Color Straw (Yellow) 09/02/16 23:00 Urine Turbidity Clear (Clear) 09/02/16 23:00 Urine pH 7.0 (5.0-7.0) 09/02/16 23:00 Ur Specific [place] 1.009 (1.003-1.030) 09/02/16 23:00 Urine Protein 30 mg/dl mg/dL (Negative) 09/02/16 23:00 Urine Glucose (UA) Neg mg/dL (Negative) 09/02/16 23:00 Urine Ketones Neg mg/dL (Negative) 09/02/16 23:00 Urine Blood Sm (Negative) 09/02/16 23:00 Urine Nitrite Neg (Negative) 09/02/16 23:00 Urine Bilirubin Neg (Negative) 09/02/16 23:00 Urine Urobilinogen < 2.0 mg/dL (<2.0) 09/02/16 23:00 Ur Leukocyte Esterase Mod (Negative) 09/02/16 23:00 Urine WBC (Auto) 6.0 /HPF (0.0-6.0) 09/02/16 23:00 Urine RBC (Auto) 2.0 /HPF (0.0-6.0) 09/02/16 23:00 U Epithel Cells (Auto) 2.0 /HPF (0-13.0) 09/02/16 23:00 Urine Bacteria (Auto) 1+ /HPF (Negative) 09/02/16 23:00 Urine Mucus Few /HPF 09/02/16 23:00 Urine Eosinophils None seen (None Seen) 09/02/16 23:00 Urine Creatinine 82.7 mg/dL (0.1-20.0) H 09/02/16 23:00 Protein/Creatinin Ratio 2.39 09/02/16 23:00 Urine Sodium 77 mEq/L 09/02/16 23:00 Fraction Sodium Excret 2.7 09/02/16 23:00 Urine Total Protein 198 mg/dL (5-11.8) H 09/02/16 23:00 Hepatitis A IgM Ab Non-reactive (NonReactive) 09/02/16 16:38 Hep Bs Antigen Non-reactive (Negative) 09/02/16 16:38 Hep B Core IgM Ab Non-reactive (NonReactive) 09/02/16 16:38 Hepatitis C Antibody Non-reactive (NonReactive) 09/02/16 16:38 Blood Type AB POSITIVE 09/03/16 11:03 Antibody Screen TNR 09/03/16 11:03 HAL Antibody Screen Negative 09/03/16 11:03 Crossmatch See Detail 09/03/16 11:03
[2016-09-05] MEDS: COREG PO SCH (10:00)
[2016-09-05] MEDS: DEEP SEA NS SCH ×2 (10:00→13:40)
[2016-09-05] MEDS: CALAN SR PO SCH ×3 (10:00→13:44)
[2016-09-05] MEDS: PROTONIX PO SCH (10:00)
--- NOTE | 2016-09-05 11:24 | Discharge Summary ---
Providers - Providers Date of Admission: 09/02/16 11:35 Attending physician: MARY ANN YEE MD 09/02/16 11:19 Consult to Physician [CONS] Routine Consulting Provider: MEL LOGAN Reason For Exam: ALEX Place consult to:: dr. logan Notified:: office Phone number called:: Was contact made?: Yes If yes, spoke with:: herminio Time called:: 14:00 09/03/16 16:42 Consult to Physician [CONS] Routine Consulting Provider: CHILANGO DON Reason For Exam: suspected Multiple myeloma, anemia Place consult to:: Dr price Notified:: yes Phone number called:: [phone] If yes, spoke with:: Salomon Time called:: 17:45 Primary care physician: ARIEL CLARKE Hospitalization Hospital course: 65-year-old woman with acute on chronic kidney failure. She was sent from nephrology clinic as a direct admission for worsening renal function. Patient' s was found to have an elevated creatinine, she was found to have anemia. She went on to have renal ultrasound only showed some small cysts and no other evidence of disease. She also went on to have a kidney biopsy, pathology still pending, she also went on to have multiple serologies for vasculitis and other diseases that could cause kidney failure, and her case given sinusitis workup was also sent for Taylor's.. She was noted to have hyperglobulinemia, for which appropriate studies were sent, she was seen by hematology while in hospital, who recommended her following up with her in outpatient to schedule a bone marrow biopsy. Due to anemia, which was symptomatic she received blood transfusion on patient. Patient's renal function did not improve, but however it stayed stable and did not worsen. Her medications are renally adjusted, she will follow-up with nephrology, and oncology as an outpatient for further treatments. Discharge diagnoses Acute on chronic kidney failure, suspected renal tubular stasis Hyperglobulinemia and knee anemia Accelerated hypertension Chronic sinusitis Anemia of chronic disease requiring transfusion Disposition: TO HOME OR SELFCARE Time spent for discharge: 35 minutes Core Measure Documentation - Palliative Care Palliative Care/ Comfort Measures: Not Applicable - Core Measures Any of the following diagnoses?: none Exam - Constitutional Vitals: Temp Pulse Resp BP Pulse Ox 98.4 F 72 19 154/87 98 09/05/16 07:00 09/05/16 07:00 09/05/16 07:00 09/05/16 07:00 09/05/16 10:00 General appearance: Present: no acute distress, well-nourished - EENT Eyes: Present: PERRL ENT: hearing intact, clear oral mucosa - Neck Neck: Present: supple, normal ROM - Respiratory Respiratory effort: normal Respiratory: bilateral: CTA - Cardiovascular Heart Sounds: Present: S1 & S2. Absent: rub, click - Extremities Extremities: pulses symmetrical, No edema Peripheral Pulses: within normal limits - Abdominal General gastrointestinal: Present: soft, non-tender, non-distended, normal bowel sounds Female genitourinary: Present: normal - Integumentary Integumentary: Present: clear, warm, dry - Musculoskeletal Musculoskeletal: gait normal, strength equal bilaterally - Psychiatric Psychiatric: appropriate mood/affect, intact judgment & insight - Neurologic Neurologic: CNII-XII intact, moves all extremities Plan Follow up with: ARIEL CLARKE MD [Primary Care Provider] - 7 Days MEL LOGAN MD [Staff Physician] - 7 Days CHILANGO DON MD [Staff Physician] - 7 Days Prescriptions: hydrALAZINE [Apresoline TAB] 10 mg PO Q8HR #90 tablet Polyethylene Glycol 3350 [Miralax 3350] 17 gm PO QDAY PRN #30 powd.pack PRN Reason: Constipation Sennosides/Docusate [Senokot S] 2 tab PO Q12H PRN #60 tablet PRN Reason: Laxative Effect Sodium Chloride 0.65% Nasal [Deep Sea NASAL SPRAY] 1 spray NS QID #1 bottle
--- NOTE | 2016-09-05 11:40 | Progress Note ---
Assessment and Plan Impression * Acute renal failure. Her globulin level was also elevated. Total protein was greater than 10. Need to rule out myeloma kidney. She also has some sinus symptoms. Cait's needs to be ruled out as well. She may have a prerenal component as well * Nausea. May be due to her renal failure * History of hypertension * Arthritis Recommendations * Her urine shows 1+ dipstick protein and small blood. Fractional excretion of sodium is 2.7% . Urine protein creatinine ratio approximately 2.4 g/g * Her renal ultrasound essentially normal except for small cysts. * Hepatitis B and C are both negative. Anti-DNA antibody is also negative . Awaiting results of other vasculitis workup * Patient had uneventful kidney biopsy yesterday . Small perinephric hematoma was noted. Her H&H is stable * No urgent indication for initiation of renal replacement therapy at this time * Hold off on her ARB as well as diuretic for now * Avoid nephrotoxins * Adjust meds for GFR less than 10 at this time * Patient advised to avoid exertion for the next 2 weeks. Also advised to report to me if she develops increasing flank pain, hematuria or fever * Okay to discharge patient home from renal standpoint * She will require office follow-up next week Subjective Date of service: 09/05/16 Interval history: Patient is comfortable today. Denies any flank pain. Has not had any gross hematuria. Nausea is better Objective - Vital Signs Vital signs: Vital Signs - 12hr 09/04/16 09/04/16 09/05/16 23:47 23:49 00:28 Temperature 98.6 F Pulse Rate 90 90 Pulse Rate [ 68 Right Radial] Respiratory 18 Rate Blood Pressure 122/70 122/70 Blood Pressure 122/70 [Right Arm] O2 Sat by Pulse 95 Oximetry 09/05/16 09/05/16 09/05/16 05:32 07:00 10:00 Temperature 98.4 F Pulse Rate 80 Pulse Rate [ 72 Right Radial] Respiratory 19 Rate Blood Pressure 140/80 Blood Pressure 154/87 [Right Arm] O2 Sat by Pulse 97 98 Oximetry - General Appearance General appearance: well-developed, well-nourished, appears stated age EENT: PERRL, mucous membranes moist Neck: no JVD, no thyromegaly Respiratory: Present: Clear to Ascultation Cardiology: regular, normal heart rate Gastrointestinal: normal, normoactive bowel sounds Integumentary: no rash, other (no edema) - Lab 09/05/16 06:08 09/05/16 06:08 Most recent lab results Calcium 9.2 mg/dL (8.4-10.2) 09/05/16 06:08 Urine Creatinine 82.7 mg/dL (0.1-20.0) H 09/02/16 23:00 Urine Sodium 77 mEq/L 09/02/16 23:00 Urine Total Protein 198 mg/dL (5-11.8) H 09/02/16 23:00
[2016-09-05 13:43] VITALS: BP 158/90
[2016-09-06 15:55] LABS: Myeloperoxidase Antibody <1.0 AI (<1.0)
[2016-09-06 16:21] LABS: Abnormal Protein Band 1 3.5 g/dL; Abnormal Protein Band 2 0.5 g/dL
== END 2016-09-05 14:57 | disposition home or self-care (01) | DRG 683 ==
LOC: UNDOADMIN 08:57 → 3A 08:57
PROVIDERS: ADMIT Internal Medicine; ATTEND Internal Medicine
PROC: 30233N1 Transfusion of Nonautologous Red Blood Cells into Peripheral Vein, Percutaneous Approach (ICD-10-PCS; principal; 2016-09-03)
DX: N17.9 Acute kidney failure, unspecified (principal); C90.00 Multiple myeloma not having achieved remission; I12.0 Hypertensive chronic kidney disease with stage 5 chronic kidney disease or end stage renal disease; D63.8 Anemia in other chronic diseases classified elsewhere; R09.81 Nasal congestion; E11.22 Type 2 diabetes mellitus with diabetic chronic kidney disease; N18.5 Chronic kidney disease, stage 5; M17.0 Bilateral primary osteoarthritis of knee; E88.09 Other disorders of plasma-protein metabolism, not elsewhere classified; Z90.49 Acquired absence of other specified parts of digestive tract; Z80.8 Family history of malignant neoplasm of other organs or systems
CPT/HCPCS: 36415; 76770; 77012; 80048; 80053; 80074; 81001; 82565; 82570; 82607; 82728; 82747; 83550; 84156; 84165; 84166; 84295; 84300; 85014; 85018; 85025; 85610; 85730; 86021; 86160; 86225; 86850; 86900; 86901; 86920; 89050; J0360; J1644; J2250; J2405; J3010; J7040; J7050; P9016

== ENCOUNTER 2016-10-08 13:36 | Outpatient (CLI) | payer MEDICARE ==
--- NOTE | 2016-10-08 14:15 | XRay Report ---
Chest 2 views: History: Acute kidney failure. Findings: Normal cardiomediastinal silhouette. Trachea is midline. No consolidation, pneumothorax or pleural effusion. Impression: No acute cardiopulmonary findings.
== END 2016-10-08 13:37 | disposition home or self-care (01) ==
LOC: LAB 13:36
PROVIDERS: ATTEND Internal Medicine Nephrology
DX: N17.9 Acute kidney failure, unspecified (principal); I10 Essential (primary) hypertension; F32.9 Major depressive disorder, single episode, unspecified
CPT/HCPCS: 71020

== ENCOUNTER 2016-10-19 15:47 | Inpatient (IN) | payer MEDICARE ==
--- NOTE | 2016-10-19 16:02 | Emergency Department Report ---
Chief Complaint: Nausea/Vomiting/Diarrhea Stated Complaint: NAUSEA,NOT EATING Time Seen by Provider: 10/19/16 15:58 - HPI History of Present Illness: pt brought in by family for nausea and decreased appetite x 1 week. pt is awaiting HD. PT has R chest wall vascular access but HD has not started. - ROS Review of Systems: + fatigue + decrease po intake + R hip pain, after bone marrow biopsy - Exam Physical Exam: PT is alert and appropriate, non toxic. Vascular access noted to R CW steady gait MSE screening note: Focused history and physical exam performed. Due to findings the following was ordered: labs, ekg ED Disposition for MSE Condition: Stable
[2016-10-19 16:53] LABS: Basophils % (Auto) 0.8 % (0.0-1.8); Eosinophils % (Auto) 2.3 % (0.0-4.3); Mean Corpuscular HGB Conc 33 % (30-34); Mean Corpuscular Hemoglobin 29 pg (28-32); Mean Corpuscular Volume 87 fl (79-97); Platelet Count 150 K/mm3 (140-440); Red Blood Count 2.43 M/mm3 (3.65-5.03); Red Cell Distribution Width 18.4 % (13.2-15.2); White Blood Count 7.2 K/mm3 (4.5-11.0)
[2016-10-19 17:11] LABS: Albumin 3.5 g/dL (3.9-5); Albumin/Globulin Ratio 0.5 %; Alkaline Phosphatase 44 units/L (35-129); Anion Gap 29 mmol/L; BUN/Creatinine Ratio 5.72; Blood Urea Nitrogen 95 mg/dL (7-17); Calcium 9.6 mg/dL (8.4-10.2); Carbon Dioxide 17 mmol/L (22-30); Chloride 89.5 mmol/L (98-107); Glucose 56 mg/dL (65-100); Potassium 4.3 mmol/L (3.6-5.0); Sodium 131 mmol/L (137-145); Total Protein 11.1 g/dL (6.3-8.2)
[2016-10-19 17:22] LABS: Alanine Aminotransferase < 5 units/L (7-56)
--- NOTE | 2016-10-19 23:45 | Emergency Department Report ---
HPI - General Chief Complaint: Abdominal Pain Time Seen by Provider: 10/19/16 15:58 - HPI HPI: This is a 65 year-old female presents to the emergency department from home with complaint of continuous nausea and the inability to eat for the past week. The patient has a decreased appetite but when she tries to force herself to eat she is nauseated and will throw up. She denies any significant abdominal pain. She denies any fever, chest pain, shortness of breath, back pain, dysuria. The patient has a history of arthritis, hypertension and chronic kidney disease and "is waiting on dialysis." She has a tunneled Vas-Cath in the right upper chest/neck and says that she was given a number to call for a dialysis center to get started. However they called the nephrology service, [facility], and told them about her symptoms and they were told to come to [facility] for further evaluation. No recent travel or sick contacts at home. She has not taken anything for her symptoms prior to presentation. ED Past Medical Hx - Past Medical History Previous Medical History?: Yes Hx Hypertension: Yes Hx Arthritis: Yes - Social History Smoking Status: Never Smoker Substance Use Type: None - Medications Home Medications: Home Medications Medication Instructions Recorded Confirmed Last Taken Type Carvedilol 25 mg BID 10/19/16 10/19/16 Unknown History Claritin 10 mg PO DAILY 10/19/16 10/19/16 Unknown History Fluticasone 50 mcg BID PRN 10/19/16 10/19/16 Unknown History Omeprazole 40 mg PO 10/19/16 Unknown History Verapamil 300 mg DAILY 10/19/16 10/19/16 Unknown History hydrOXYzine 10 mg BID 10/19/16 10/19/16 Unknown History ED Review of Systems ROS: Stated complaint: NAUSEA,NOT EATING Other details as noted in HPI Comment: All other systems reviewed and negative Constitutional: denies: chills, fever Eyes: denies: eye pain, eye discharge, vision change ENT: denies: ear pain, throat pain Respiratory: denies: cough, shortness of breath, wheezing Cardiovascular: denies: chest pain, palpitations Gastrointestinal: nausea, vomiting. denies: diarrhea Genitourinary: denies: urgency, dysuria, discharge Musculoskeletal: denies: back pain, joint swelling, arthralgia Skin: denies: rash, lesions Neurological: denies: headache, weakness, paresthesias Physical Exam - Physical Exam Vital Signs: Vital Signs 10/19/16 15:55 Temperature 98.2 F Pulse Rate 77 Respiratory 16 Rate Blood Pressure 146/95 O2 Sat by Pulse 100 Oximetry Physical Exam: GENERAL: The patient is well-developed well-nourished. HEENT: Normocephalic. Atraumatic. Extraocular motions are intact. Patient has moist mucous membranes. Pupils equal reactive to light bilaterally. NECK: Supple. Trachea is midline. There is a tunneled Vas-Cath to the right lower neck and upper chest. No surrounding erythema or signs/symptoms of infection. CHEST/LUNGS: Clear to auscultation. There is no respiratory distress noted. HEART/CARDIOVASCULAR: Regular. There is no tachycardia. There is no gallop rub or murmur. ABDOMEN: Abdomen is soft, nontender. Patient has normal bowel sounds. There is no abdominal distention. SKIN: Skin is warm and dry. NEURO: The patient is awake, alert, and oriented. The patient is cooperative. The patient has no focal neurologic deficits. The patient has normal speech. MUSCULOSKELETAL: There is no tenderness or deformity. There is no limitation range of motion. There is no evidence of acute injury. ED Course Vital Signs 10/19/16 15:55 Temperature 98.2 F Pulse Rate 77 Respiratory 16 Rate Blood Pressure 146/95 O2 Sat by Pulse 100 Oximetry - Consultations Consultation #1: I spoke with Dr. Raya, the rn practitioner on-call for [facility], who is aware of the patient's ER visit and agrees with the plan for admission secondary to her nausea, vomiting and probable malnutrition. They will see her on the floor tomorrow but she does not appear to need emergent dialysis. 10/20/16 00:13 ED Medical Decision Making - Lab Data Result diagrams: 10/19/16 16:22 10/19/16 16:22 - Medical Decision Making 65-year-old female presents to the emergency department having not been able to eat or drink over the past week. She can keep down some water but when she tries to force food down she gets nauseous and vomits. Patient last was here in the middle to end of September and had a creatinine at that time of 4. The creatinine is 14 currently with a GFR 3. The patient still makes urine but it is greatly decreased. No electrolytes abnormalities. She will be given some Zofran and will be admitted to the hospital for further evaluation and treatment. Nephrology has been contacted and there will be no emergent dialysis tonight but she will be seen on the floor as a consultation. The patient has been accepted for admission by the hospitalist, Dr. Mandujano. - Differential Diagnosis malignancy, acute tubular necrosis, protein calorie malnutrition Critical Care Time: No Critical care attestation.: If time is entered above; I have spent that time in minutes in the direct care of this critically ill patient, excluding procedure time. ED Disposition Clinical Impression: Malnutrition Nausea and vomiting Qualifiers: Vomiting type: unspecified Vomiting Intractability: unspecified Qualified Code( s): R11.2 - Nausea with vomiting, unspecified Acute on chronic kidney failure Qualifiers: Acute renal failure type: unspecified Chronic kidney disease stage: stage 5, not on chronic dialysis Qualified Code(s): N17.9 - Acute kidney failure, unspecified; N18.5 - Chronic kidney disease, stage 5 Anemia Qualifiers: Anemia type: unspecified type Qualified Code(s): D64.9 - Anemia, unspecified Disposition: -09 OP ADMIT IP TO THIS HOSP Is pt being admited?: Yes Condition: Stable Instructions: Abdominal Pain (ED) Referrals: PRIMARY CARE, [Primary Care Provider] - 3-5 Days Time of Disposition: 00:19
[2016-10-19] MEDS ORDERED: ZOFRAN IV ONE (23:56)
[2016-10-19] MEDS ORDERED: D50W (25GM) IV ONE (23:56)
[2016-10-20] MEDS ORDERED: MILK OF MAGNESIA PO PRN (01:20)
[2016-10-20] MEDS ORDERED: TYLENOL PO PRN (01:20)
[2016-10-20] MEDS ORDERED: DULCOLAX PR PRN (01:20)
--- NOTE | 2016-10-20 01:23 | History and Physical Report ---
History of Present Illness Date of examination: 10/20/16 History of present illness: 65-year-old man with a history of hypertension, chronic kidney disease came to the emergency room with complaints of decreased oral intake over the last one and a half weeks and generalized weakness, her symptoms worsen such came to the emergency room for evaluation. Patient continues to lose weight, status post recent bone marrow biopsy, results are pending. Complaining of pain in the left side of the back, dull, intermittent in nature, unable to say how long it last for, intensity 5/10, no radiation and she cannot identify exacerbating or relieving factor Patient denies chest pain, palpitation, shortness of breath, cough, abdominal pain, hematochezia, dysuria, frequency, focal weakness, dysarthria, fever chills , polydipsia polyuria, hot or cold intolerance, easy bruisability, or rash or bleeding from mucosal membrane, rhinorrhea, epistaxis, earache, tinnitus, blurry vision, eye discharge, anxiety, depression. Other review of systems negative PAST SURGICAL HISTORY:none SOCIAL HISTORY: Denies alcohol, tobacco, drugs FAMILY HISTORY: Hypertension Medications and Allergies Allergies Allergy/AdvReac Type Severity Reaction Status Date / Time No Known Allergies Allergy Verified 10/19/16 15:54 Home Medications Medication Instructions Recorded Confirmed Last Taken Type Carvedilol [Coreg] 25 mg PO BID 10/19/16 10/20/16 1 Day Ago History Fluticasone [Flonase] 1 spray NS QDAY PRN 10/19/16 10/20/16 1 Day Ago History Loratadine [Claritin] 10 mg PO DAILY 10/19/16 10/20/16 1 Day Ago History Omeprazole 40 mg PO DAILY 10/19/16 10/20/16 1 Day Ago History Verapamil ER (Nf) [Verelan Pm (Nf)] 300 mg PO QHS 10/19/16 10/20/16 1 Day Ago History hydrOXYzine HCL [Atarax] 10 mg PO PRN PRN 10/19/16 10/20/16 1 Day Ago History hydrALAZINE [Apresoline TAB] 25 mg PO BID 10/20/16 10/20/16 10/18/16 History Exam - Physical Exam Narrative exam: Gen. appearance: Patient lying in bed, no apparent distress HEENT: Normocephalic, atraumatic, pupils equally round and reactive to light, extraocular movement intact, and no sclericterus,. No JVD or thyromegaly or nodule,neck supple, no carotid bruit ,mucous membranes moist, no exudate or erythema Heart: S1, S2, regular rate and rhythm Lungs: Clear to auscultation bilaterally, breathing comfortable Abdomen: Positive bowel sounds, nontender, nondistended, no organomegaly Extremity: No edema, cyanosis, clubbing Skin: No rash, nodules, warm, dry Neuro: Oriented 3, cranial nerves II-12 intact, speech is fluent, motor and sensory intact - Constitutional Vitals: Temp Pulse Resp BP Pulse Ox 98.2 F 77 16 146/95 100 10/19/16 15:55 10/19/16 15:55 10/19/16 15:55 10/19/16 15:55 10/19/16 15:55 Results - Labs CBC & Chem 7: 10/19/16 16:22 10/19/16 16:22 Labs: Abnormal lab results 10/19/16 10/19/16 Range/Units 16:22 16:22 RBC 2.43 L (3.65-5.03) M/mm3 Hgb 7.0 L (10.1-14.3) gm/dl Hct 21.0 L (30.3-42.9) % RDW 18.4 H (13.2-15.2) % [place] % (Auto) 9.9 H (0.0-7.3) % Sodium 131 L (137-145) mmol/L Chloride 89.5 L (98-107) mmol/L Carbon Dioxide 17 L (22-30) mmol/L BUN 95 H (7-17) mg/dL Creatinine 16.6 H (0.7-1.2) mg/dL Glucose 56 L (65-100) mg/dL ALT < 5 L (7-56) units/L Total Protein 11.1 H (6.3-8.2) g/dL Albumin 3.5 L (3.9-5) g/dL - Imaging and Cardiology EKG: image reviewed Assessment and Plan Acute on chronic renal failure, possible myeloma Back pain Anemia Hypertension Admits medicine Consult renal for dialysis, obtain CAT scan of the abdomen and pelvis Monitor hemoglobin, will probably need transfusion Consult hematology, DVT prophylaxis with SCD
[2016-10-20] MEDS ORDERED: ATIVAN IV ONE ×2 (02:05)
--- NOTE | 2016-10-20 03:02 | Cat Scan Report ---
FINAL REPORT EXAM: CT ABDOMEN PELVIS WO CON HISTORY: back pain, s/p BM biopsy COMPARISON: None available. TECHNIQUE: Contiguous axial images were obtained. Additional sagittal and coronal reformatted images were obtained. FINDINGS: Mild linear scarring at the lung bases. Small hiatal hernia. Gallbladder surgically absent. Mild enlargement of the liver. Spleen and pancreas are grossly unremarkable. Mild nodular thickening of adrenal glands. 1 centimeter right renal cyst. No nephrolithiasis or hydronephrosis bilaterally. Mild wall thickening and fat stranding along the proximal left renal pelvis and ureter. Aorta and IVC normal in caliber. Mild calcification of the aorta. No distal ureteral urinary bladder calculi. There are few pelvic phleboliths. Uterus and ovaries are grossly unremarkable. Trace fluid in the pelvis likely reactive. The appendix is normal in caliber measuring 5 millimeters. No gross focal inflammatory changes the bowel. Mild to moderate degenerative changes of the lumbar spine. Bilateral hip and SI joint spaces are preserved. Patchy marrow attenuation which is nonspecific. No focal bony destructive lesion. IMPRESSION: Mild haziness of the fat along the left renal pelvis with borderline wall thickening left renal pelvis and proximal ureter. Correlation with urinalysis suggested to ensure no active infection. No obstructive uropathy or urolithiasis. Trace fluid in the pelvis, reactive. The appendix is normal in caliber. Large and small bowel loops normal in caliber. Mild moderate diverticulosis of the colon. No diverticulitis. Patchy marrow attenuation lumbar spine. Given the patient's history bone marrow biopsy, this could relate to anemia or infiltrative marrow process such as leukemia. Clinical correlation is needed. Osteopenia could also cause a similar appearance. No focal bony destructive lesion.
[2016-10-20] MEDS ORDERED: VENOFER 100 MG in NACL 0.9% 50 ML IV PRN (09:16)
[2016-10-20] MEDS ORDERED: NACL 0.9% 100 ML IV PRN ×2 (09:16→12:35)
--- NOTE | 2016-10-20 09:23 | Consultation ---
History of Present Illness - Reason for Consult Consult date: 10/20/16 end stage renal disease, hyperkalemia, metabolic acidosis Requesting physician: WIINFRED FERMIN - History of Present Illness 65-year-old man with a history of hypertension, ESRD came to the emergency room with complaints of decreased oral intake over the last one and a half weeks and generalized weakness, her symptoms worsen such came to the emergency room for evaluation. Patient continues to lose weight, with recent myeloma. Complaining of pain in the left side of the back, dull, intermittent in nature, unable to Silverlon O, intensity 5 was 10, no radiation and she cannot identify exacerbating or relieving factor Patient denies chest pain, palpitation, shortness of breath, cough, abdominal pain, hematochezia, dysuria, frequency, focal weakness, dysarthria, fever chills , polydipsia polyuria, hot or cold intolerance, easy bruisability, or rash or bleeding from mucosal membrane, rhinorrhea, epistaxis, earache, tinnitus, blurry vision, eye discharge, anxiety, depression. Other review of systems negative Past History Past Medical History: anemia, ESRD, hypertension, renal failure Past Surgical History: Other (perm cath placement) Social history: denies: prescription drug abuse, IV drug use Family history: hypertension Medications and Allergies Allergies Allergy/AdvReac Type Severity Reaction Status Date / Time No Known Allergies Allergy Verified 10/19/16 15:54 Home Medications Medication Instructions Recorded Confirmed Last Taken Type Carvedilol 25 mg BID 10/19/16 10/19/16 Unknown History Claritin 10 mg PO DAILY 10/19/16 10/19/16 Unknown History Fluticasone 50 mcg BID PRN 10/19/16 10/19/16 Unknown History Omeprazole 40 mg PO 10/19/16 Unknown History Verapamil 300 mg DAILY 10/19/16 10/19/16 Unknown History hydrOXYzine 10 mg BID PRN 10/19/16 10/19/16 Unknown History hydrALAZINE [Apresoline TAB] PO BID 10/20/16 10/18/16 History Active Meds: Active Medications Acetaminophen (Tylenol) 650 mg PO Q4H PRN PRN Reason: Pain MILD(1-3)/Fever >100.5/HENRY Bisacodyl (Dulcolax) 10 mg UT QDAY PRN PRN Reason: Constipation unrelieved by MOM Epoetin Ken (Epogen) 20,000 unit IV DUNCAN PRN PRN Reason: hemodialysis Iron Sucrose 100 mg/ Sodium (Chloride) 55 mls @ 100 mls/hr IV DUNCAN PRN PRN Reason: hemodialysis Sodium Chloride (Nacl 0.9%) 100 mls @ 999 mls/hr IV DUNCAN PRN PRN Reason: Hypotension Ondansetron HCl (Zofran) 4 mg IV Q8H PRN PRN Reason: N/V unrelieved by Reglan Review of Systems Constitutional: fatigue, weakness, malaise Gastrointestinal: abdominal pain, nausea, vomiting, change in bowel habits Exam - Vital Signs Vital signs: Vital Signs Temp Pulse Resp BP Pulse Ox 98.2 F 77 16 146/95 100 10/19/16 15:55 10/19/16 15:55 10/19/16 15:55 10/19/16 15:55 10/19/16 15:55 - Physical Exam Narrative exam: Gen. appearance: Patient lying in bed, no apparent distress HEENT: Normocephalic, atraumatic, pupils equally round and reactive to light, extraocular movement intact, and no sclericterus,. No JVD or thyromegaly or nodule,neck supple, no carotid bruit ,mucous membranes moist, no exudate or erythema Heart: S1, S2, regular rate and rhythm Lungs: Clear to auscultation bilaterally, breathing comfortable Abdomen: Positive bowel sounds, nontender, nondistended, no organomegaly Extremity: No edema, cyanosis, clubbing Skin: No rash, nodules, warm, dry Neuro: Oriented 3, cranial nerves II-12 intact, speech is fluent, motor and sensory intact Results - Lab Results 10/19/16 16:22 10/19/16 16:22 Most recent lab results Calcium 9.6 mg/dL (8.4-10.2) 10/19/16 16:22 Assessment and Plan Impression: * ESRD * Uremia * Myeloma * Anemia chr disease * metabolic acidosis * HTN Plan: * initiate HD for next 3 days for uremia control * outpatient hd Jovon daniels--MWF * strict i/os * uf as tolerated with hd * daily lytes * epogen if ok with hematology * iron studies * avoid nephrotoxins
--- NOTE | 2016-10-20 09:47 | Admit Criteria Form ---
Admission Criteria Documentation: RENAL FAILURE, ACUTE Clinical Indications for Admission to Inpatient Care ( Place 'X' for any and all applicable criteria): Admission is indicated for ALL (if I & II) or III of the following [A](2)(3)(4)( 5)(6)(7): [X]I. Acute renal failure as indicated by ANY ONE of the following: [ ]a) A 3-fold rise in serum creatinine from baseline [X ]b) Serum creatinine greater than 4 mg/dL (354 micromoles/L) with an acute rise greater than 0.5 mg/dL (44.2 micromoles/L) [ ]c) Reduction of more than 75% in estimated glomerular filtration rate from baseline [ ]d) Estimated glomerular filtration rate less than 35 mL/min/1.73m2 (0.59mL/sec/1.73m2)in a child up to 18 years of age [ ]e) Anuria indicated by ALL of the following: [ ]i) Adequate volume status [ ]ii) Cessation of urine output indicated by ANY ONE of the following: [ ]1) Urine output less than 0.3 mL/kg/hr for 24 hours [ ]2) Anuria (urine output less than 0.1 mL/kg/ hr) for 12 hours [X ] II. Renal failure cannot be managed in an outpatient setting or observational care setting as indicating by ANY ONE of the following: [ ]a) Altered mental status that is severe or persistent [ ]b) Volume overload or Respiratory distress (eg, clinically significant pulmonary edema) that is severe or persistent [ ]c) Cardiac arrhythmias of immediate concern [ ]d) Hemodynamic instability [ ]e) Clinically significant electrolyte abnormality that requires inpatient care (eg, hyperkalemia with severe ECG findings)[B] [ ]f) Clinically significant metabolic abnormality (eg, acidosis) that is severe or persistent [ ]g) Acute treatment of renal failure (eg, renal replacement therapy) not feasible or appropriate in observational care setting [ ]h) Clinical situation too unstable or uncertain (eg, inadequate urine output, ongoing decline in renal function, etiology unclear) [ ]i) Necessary support and caregiver ability to comply with outpatient treatment cannot be arranged in observation care timeframe (eg, within 24 hours) [X ]j) Other significant finding or clinical condition judged not to be within scope of observation care [ ]III.General contraindications and/or Inappropriate clinical situations for Observational Care in patients with Acute Renal Failure, when ANY ONE of the following is required: [ ]a) Prediction of prolongation of LOS based on ANY ONE of the following may be considered as a contraindication for observational care 2, 3, 4, 5, 6, 7, 8 , 9, 10, 11 [ ]i) Age > 65 yrs. [ ]ii) Patient arriving by ambulance [ ]iii) Patient with high acuity [ ]iv) Patient requiring vital sign monitoring [ ]v) Patient on IV medication [ ]b) Systolic blood pressures 180mmHg 3,12 [ ]c) Patient with altered mental status including delirium and other alteration of consciousness, (3) [ ]d) Patient whose discharge disposition will be to a half-way home or rehabilitation home should not be managed in Emergency Department Observation Unit. CMS rule requires 3 days hospital stay before such placement.3,13 [ ]e) Patient with failure to thrive due to broad array of etiologies 3, 16,17 [ ]f) Inability to ambulate 3,14 Extended stay beyond goal length of stay may be needed for(13) [ ]a) Continuing uremic complications [ ]b) Care for comorbidities [ ]c) acute renal failure [ ]d) Need for dialysis The original [email or web address] content created by [email or web address] has been revised. The portions of the content which have been revised are identified through the use of italic text or in bold, and [facility] has neither reviewed nor approved the modified material. All other unmodified content is copyright [facility]. Please see references footnoted in the original [facility] edition 2016 Admission Criteria Met: Yes
[2016-10-20] MEDS ORDERED: LOVENOX SUB-Q SCH (10:00)
[2016-10-20 10:06] LABS: Phosphorous 5.9 mg/dL (2.5-4.5); Total Iron Binding Capacity 187.6 mcg/dL (250-450)
--- NOTE | 2016-10-20 11:04 | Progress Note ---
Hospitalist Physical - Constitutional Vitals: Temp Pulse Resp BP Pulse Ox 98.2 F 75 16 120/79 98 10/20/16 09:46 10/20/16 09:46 10/20/16 09:46 10/20/16 09:46 10/20/16 09:46 Results - Labs CBC & Chem 7: 10/19/16 16:22 10/19/16 16:22 Labs: Laboratory Last Values WBC 7.2 K/mm3 (4.5-11.0) 10/19/16 16:22 RBC 2.43 M/mm3 (3.65-5.03) L 10/19/16 16:22 Hgb 7.0 gm/dl (10.1-14.3) L 10/19/16 16:22 Hct 21.0 % (30.3-42.9) L 10/19/16 16:22 MCV 87 fl (79-97) 10/19/16 16:22 MCH 29 pg (28-32) 10/19/16 16:22 MCHC 33 % (30-34) 10/19/16 16:22 RDW 18.4 % (13.2-15.2) H 10/19/16 16:22 Plt Count 150 K/mm3 (140-440) 10/19/16 16:22 Lymph % (Auto) 28.7 % (13.4-35.0) 10/19/16 16:22 [place] % (Auto) 9.9 % (0.0-7.3) H 10/19/16 16:22 Eos % (Auto) 2.3 % (0.0-4.3) 10/19/16 16:22 Baso % (Auto) 0.8 % (0.0-1.8) 10/19/16 16:22 Lymph # 2.1 K/mm3 (1.2-5.4) 10/19/16 16:22 [place] # 0.7 K/mm3 (0.0-0.8) 10/19/16 16:22 Eos # 0.2 K/mm3 (0.0-0.4) 10/19/16 16:22 Baso # 0.1 K/mm3 (0.0-0.1) 10/19/16 16:22 Seg Neutrophils % 58.3 % (40.0-70.0) 10/19/16 16:22 Seg Neutrophils # 4.2 K/mm3 (1.8-7.7) 10/19/16 16:22 Sodium 131 mmol/L (137-145) L 10/19/16 16:22 Potassium 4.3 mmol/L (3.6-5.0) 10/19/16 16:22 Chloride 89.5 mmol/L (98-107) L 10/19/16 16:22 Carbon Dioxide 17 mmol/L (22-30) L 10/19/16 16:22 Anion Gap 29 mmol/L 10/19/16 16:22 BUN 95 mg/dL (7-17) H 10/19/16 16:22 Creatinine 16.6 mg/dL (0.7-1.2) H 10/19/16 16:22 Estimated GFR 3 ml/min 10/19/16 16:22 BUN/Creatinine Ratio 5.72 % 10/19/16 16:22 Glucose 56 mg/dL (65-100) L 10/19/16 16:22 POC Glucose 143 (70-105) H 10/20/16 02:02 Calcium 9.6 mg/dL (8.4-10.2) 10/19/16 16:22 Phosphorus 5.90 mg/dL (2.5-4.5) H 10/20/16 09:30 Iron 52 ug/dL (37-170) 10/20/16 09:30 TIBC 187.60 mcg/dL (250-450) L 10/20/16 09:30 % Saturation 27.72 % 10/20/16 09:30 Transferrin 134 mg/dl (192-382) L 10/20/16 09:30 Ferritin 421.5 ng/mL (13.0-400.0) H 10/20/16 09:30 Total Bilirubin 0.30 mg/dL (0.1-1.2) 10/19/16 16:22 AST 13 units/L (5-40) 10/19/16 16:22 ALT < 5 units/L (7-56) L 10/19/16 16:22 Alkaline Phosphatase 44 units/L (35-129) 10/19/16 16:22 Total Protein 11.1 g/dL (6.3-8.2) H 10/19/16 16:22 Albumin 3.5 g/dL (3.9-5) L 10/19/16 16:22 Albumin/Globulin Ratio 0.5 % 10/19/16 16:22 PTH Intact 65.25 pg/mL (15-65) H 10/20/16 09:30 Hep Bs Antigen Non-reactive (Negative) 10/20/16 09:30 Hepatitis C Antibody Non-reactive (NonReactive) 10/20/16 09:30
[2016-10-20] MEDS ORDERED: NACL 0.9 (PRIMING MACHINE ONLY DIALYSIS) MC ONE (12:35)
[2016-10-20] MEDS: HEPARIN IV PRN (15:45)
--- NOTE | 2016-10-20 16:34 | Event Note ---
Date: 10/20/16 Patient Seen and evaluated in room and medical records reviewed Admitted with acute renal failure, requiring hemodialysis, nephrology evaluates the patient Patient received hemodialysis, possible discharge in 1-2 days or for an outpatient hemodialysis is scheduled Today she is comfortable in bed no new complaints Vital signs stable, physical examination is unremarkable Continue current management, nephrology evaluation and recommendation noted and appreciated Plan of care discussed with the patient and the nurse
[2016-10-21 06:02] LABS: Basophils % (Auto) 0.7 % (0.0-1.8); Eosinophils % (Auto) 1.4 % (0.0-4.3); Hemoglobin 6.7 gm/dl (10.1-14.3); Mean Corpuscular HGB Conc 34 % (30-34); Mean Corpuscular Hemoglobin 30 pg (28-32); Mean Corpuscular Volume 86 fl (79-97); Platelet Count 128 K/mm3 (140-440); Red Blood Count 2.29 M/mm3 (3.65-5.03); Red Cell Distribution Width 18.1 % (13.2-15.2); White Blood Count 5.7 K/mm3 (4.5-11.0)
[2016-10-21 06:05] LABS: Hematocrit 19.7 % (30.3-42.9)
[2016-10-21 06:12] LABS: BUN/Creatinine Ratio 3.84; Calcium 9.7 mg/dL (8.4-10.2); Chloride 95.6 mmol/L (98-107); Potassium 4.2 mmol/L (3.6-5.0)
--- NOTE | 2016-10-21 07:07 | Progress Note ---
Assessment and Plan Assessment and plan: --Advanced and aggressive multiple myeloma diagnosed on 10/16/2016 per bone marrow studies, Hematology oncology planning chemotherapy as outpatient --Acute renal failure/end-stage renal disease on hemodialysis per schedule Nephrology following --Anemia secondary to renal failure as well as myeloma; type and cross and transfuse 2 units of PRBC during dialysis today --Hypertension; moderate control continue current antihypertensives and when necessary medications --Back pain multiple myeloma related, hematology oncologist planning chemotherapy as outpatient, pain management --DVT prophylaxis; Lovenox --Patient is full CODE STATUS Closely monitor the patient and adjust management as needed Consults and recommendations noted and appreciated Discussed with hematology oncology the plan of care Plan of care discussed with the patient, her nurse and the case management History Interval history: Patient seen and evaluated this morning in her room medical records reviewed No new events reported by nursing staff, patient has significant drop in hemoglobin to 6.7 No evidence of bleeding, patient alert awake oriented 3 not in acute distress, vital signs reviewed Hospitalist Physical - Constitutional Vitals: Temp Pulse Resp BP Pulse Ox 98.2 F 80 21 120/78 94 10/21/16 05:02 10/21/16 05:02 10/21/16 05:02 10/21/16 05:02 10/21/16 05:02 General appearance: Present: no acute distress, well-nourished - EENT Eyes: Present: PERRL, EOM intact - Neck Neck: Present: supple, normal ROM - Respiratory Respiratory effort: normal, labored - Cardiovascular Rhythm: regular Heart Sounds: Present: S1 & S2 - Extremities Extremities: no ischemia Peripheral Pulses: within normal limits - Abdominal General gastrointestinal: soft, non-tender, non-distended, normal bowel sounds - Integumentary Integumentary: Present: clear, warm - Psychiatric Psychiatric: appropriate mood/affect, cooperative - Neurologic Neurologic: CNII-XII intact, moves all extremities Results - Labs CBC & Chem 7: 10/21/16 05:08 10/21/16 05:08 Labs: Laboratory Last Values WBC 5.7 K/mm3 (4.5-11.0) 10/21/16 05:08 RBC 2.29 M/mm3 (3.65-5.03) L 10/21/16 05:08 Hgb 6.7 gm/dl (10.1-14.3) L 10/21/16 05:08 Hct 19.7 % (30.3-42.9) L* 10/21/16 05:08 MCV 86 fl (79-97) 10/21/16 05:08 MCH 30 pg (28-32) 10/21/16 05:08 MCHC 34 % (30-34) 10/21/16 05:08 RDW 18.1 % (13.2-15.2) H 10/21/16 05:08 Plt Count 128 K/mm3 (140-440) L 10/21/16 05:08 Lymph % (Auto) 33.7 % (13.4-35.0) 10/21/16 05:08 [place] % (Auto) 13.6 % (0.0-7.3) H 10/21/16 05:08 Eos % (Auto) 1.4 % (0.0-4.3) 10/21/16 05:08 Baso % (Auto) 0.7 % (0.0-1.8) 10/21/16 05:08 Lymph # 1.9 K/mm3 (1.2-5.4) 10/21/16 05:08 [place] # 0.8 K/mm3 (0.0-0.8) 10/21/16 05:08 Eos # 0.1 K/mm3 (0.0-0.4) 10/21/16 05:08 Baso # 0.0 K/mm3 (0.0-0.1) 10/21/16 05:08 Seg Neutrophils % 50.6 % (40.0-70.0) 10/21/16 05:08 Seg Neutrophils # 2.9 K/mm3 (1.8-7.7) 10/21/16 05:08 Sodium 140 mmol/L (137-145) D 10/21/16 05:08 Potassium 4.2 mmol/L (3.6-5.0) 10/21/16 05:08 Chloride 95.6 mmol/L (98-107) L 10/21/16 05:08 Carbon Dioxide 25 mmol/L (22-30) D 10/21/16 05:08 Anion Gap 24 mmol/L 10/21/16 05:08 BUN 40 mg/dL (7-17) H 10/21/16 05:08 Creatinine 10.4 mg/dL (0.7-1.2) H 10/21/16 05:08 Estimated GFR 4 ml/min 10/21/16 05:08 BUN/Creatinine Ratio 3.84 % 10/21/16 05:08 Glucose 66 mg/dL (65-100) 10/21/16 05:08 POC Glucose 143 (70-105) H 10/20/16 02:02 Calcium 9.7 mg/dL (8.4-10.2) 10/21/16 05:08 Phosphorus 5.90 mg/dL (2.5-4.5) H 10/20/16 09:30 Magnesium 2.00 mg/dL (1.7-2.3) 10/21/16 05:08 Iron 52 ug/dL (37-170) 10/20/16 09:30 TIBC 187.60 mcg/dL (250-450) L 10/20/16 09:30 % Saturation 27.72 % 10/20/16 09:30 Transferrin 134 mg/dl (192-382) L 10/20/16 09:30 Ferritin 421.5 ng/mL (13.0-400.0) H 10/20/16 09:30 Total Bilirubin 0.30 mg/dL (0.1-1.2) 10/19/16 16:22 AST 13 units/L (5-40) 10/19/16 16:22 ALT < 5 units/L (7-56) L 10/19/16 16:22 Alkaline Phosphatase 44 units/L (35-129) 10/19/16 16:22 Total Protein 11.1 g/dL (6.3-8.2) H 10/19/16 16:22 Albumin 3.5 g/dL (3.9-5) L 10/19/16 16:22 Albumin/Globulin Ratio 0.5 % 10/19/16 16:22 PTH Intact 65.25 pg/mL (15-65) H 10/20/16 09:30 Hepatitis A IgM Ab Non-reactive (NonReactive) 10/20/16 09:30 Hep Bs Antigen Non-reactive (Negative) 10/20/16 09:30 Hep B Core IgM Ab Non-reactive (NonReactive) 10/20/16 09:30 Hepatitis C Antibody Non-reactive (NonReactive) 10/20/16 09:30
[2016-10-21] MEDS ORDERED: NACL 0.9% 500 ML 500 ML IV NR (08:00)
--- NOTE | 2016-10-21 08:43 | Progress Note ---
Assessment and Plan Impression: * ESRD * Uremia * Myeloma * Anemia chr disease * metabolic acidosis * HTN Plan: * initiated HD for next 3 days for uremia control * prbcs with hd today * await hematology input * outpatient hd [facility] [place]--[place] * strict i/os * uf as tolerated with hd * daily lytes * epogen if ok with hematology * iron studies * avoid nephrotoxins Subjective Date of service: 10/21/16 Principal diagnosis: esrd Interval history: resting well in bed, events noted Objective - Exam Narrative Exam: Gen. appearance: Patient lying in bed, no apparent distress HEENT: Normocephalic, atraumatic, pupils equally round and reactive to light, extraocular movement intact, and no sclericterus,. No JVD or thyromegaly or nodule,neck supple, no carotid bruit ,mucous membranes moist, no exudate or erythema Heart: S1, S2, regular rate and rhythm Lungs: Clear to auscultation bilaterally, breathing comfortable Abdomen: Positive bowel sounds, nontender, nondistended, no organomegaly Extremity: No edema, cyanosis, clubbing Skin: No rash, nodules, warm, dry Neuro: Oriented 3, cranial nerves II-12 intact, speech is fluent, motor and sensory intact - Vital Signs Vital signs: Vital Signs - 12hr 10/20/16 10/21/16 10/21/16 23:03 00:55 05:02 Temperature 98.9 F 98.2 F Pulse Rate 80 Pulse Rate [ 75 80 Right Radial] Respiratory 20 21 Rate Blood Pressure 142/79 120/78 [Left Arm] O2 Sat by Pulse 97 94 Oximetry 10/21/16 10/21/16 07:55 08:07 Temperature 98.4 F Pulse Rate 76 Pulse Rate [ 76 Right Radial] Respiratory 18 Rate Blood Pressure 124/76 [Left Arm] O2 Sat by Pulse 97 Oximetry - Lab 10/21/16 05:08 10/21/16 05:08 Most recent lab results Calcium 9.7 mg/dL (8.4-10.2) 10/21/16 05:08 Phosphorus 5.90 mg/dL (2.5-4.5) H 10/20/16 09:30 Magnesium 2.00 mg/dL (1.7-2.3) 10/21/16 05:08
[2016-10-21] MEDS ORDERED: NACL 0.9 (PRIMING MACHINE ONLY DIALYSIS) MC ONE (13:23)
--- NOTE | 2016-10-21 14:32 | Consultation ---
History of Present Illness - Reason for Consult Consult date: 10/21/16 Myeloma Requesting physician: KIMBERLEY CATHERINE - History of Present Illness Patient is well known to us. This 65-year-old woman has a history of hypertension and chronic kidney disease. Also had hyper gamma globulinemia and total protein of 11.5g. She had anemia. Had bone marrow on 10/15/16 and it showed multiple myeloma as expected. She was supposed to come to our office on for chemotherapy but before that her Renal failure got worsr and she was admitted to [facility]. She came to the emergency room with complaints of decreased oral intake over the last one and a half weeks and generalized weakness. Patient continues to lose weight. Complaining of pain in the left side of the back, dull, intermittent in nature, unable to say how long it last for, intensity 5/10, no radiation and she cannot identify exacerbating or relieving factor. She needs chemotherapy for myeloma but it can not be given as in-patient or out-patient at [facility] as they do not allow any chemotherapy for any cancer. Patient denies chest pain, palpitation, shortness of breath, cough, abdominal pain, hematochezia, dysuria, frequency, focal weakness, dysarthria, fever chills , polydipsia polyuria, hot or cold intolerance, easy bruisability, or rash or bleeding from mucosal membrane, rhinorrhea, epistaxis, earache, tinnitus, blurry vision, eye discharge, anxiety, depression. Other review of systems negative Past History Past Medical History: anemia, ESRD, hypertension, renal failure Past Surgical History: Other (perm cath placement) Social history: denies: prescription drug abuse, IV drug use Family history: hypertension Medications and Allergies Allergies Allergy/AdvReac Type Severity Reaction Status Date / Time No Known Allergies Allergy Verified 10/19/16 15:54 Home Medications Medication Instructions Recorded Confirmed Last Taken Type Carvedilol [Coreg] 25 mg PO BID 10/19/16 10/20/16 1 Day Ago History Fluticasone [Flonase] 1 spray NS QDAY PRN 10/19/16 10/20/16 1 Day Ago History Loratadine [Claritin] 10 mg PO DAILY 10/19/16 10/20/16 1 Day Ago History Omeprazole 40 mg PO DAILY 10/19/16 10/20/16 1 Day Ago History Verapamil ER (Nf) [Verelan Pm (Nf)] 300 mg PO QHS 10/19/16 10/20/16 1 Day Ago History hydrOXYzine HCL [Atarax] 10 mg PO PRN PRN 10/19/16 10/20/16 1 Day Ago History hydrALAZINE [Apresoline TAB] 25 mg PO BID 10/20/16 10/20/16 10/18/16 History Active Meds: Active Medications Acetaminophen (Tylenol) 650 mg PO Q4H PRN PRN Reason: Pain MILD(1-3)/Fever >100.5/HENRY Bisacodyl (Dulcolax) 10 mg VA QDAY PRN PRN Reason: Constipation unrelieved by MOM Epoetin Ken (Epogen) 20,000 unit IV DUNCAN PRN PRN Reason: hemodialysis Last Admin: 10/21/16 14:14 Dose: 20,000 unit Heparin Sodium (Porcine) (Heparin) 5,000 unit IV DUNCAN PRN PRN Reason: hemodialysis Last Admin: 10/20/16 15:45 Dose: 5,000 unit Iron Sucrose 100 mg/ Sodium (Chloride) 55 mls @ 100 mls/hr IV DUNCAN PRN PRN Reason: hemodialysis Last Admin: 10/20/16 13:44 Dose: 100 mls/hr Sodium Chloride (Nacl 0.9%) 100 mls @ 999 mls/hr IV DUNCAN PRN PRN Reason: Hypotension Ondansetron HCl (Zofran) 4 mg IV Q8H PRN PRN Reason: N/V unrelieved by Reglan Exam - Constitutional Vitals: Temp Pulse Resp BP Pulse Ox 98.6 F 62 18 162/92 97 10/21/16 13:30 10/21/16 13:30 10/21/16 13:30 10/21/16 13:30 10/21/16 10:00 Results - Labs CBC & Chem 7: 10/21/16 05:08 10/21/16 05:08 Labs: Abnormal lab results 10/21/16 10/21/16 10/21/16 Range/Units 05:08 05:08 07:25 RBC 2.29 L (3.65-5.03) M/mm3 Hgb 6.7 L (10.1-14.3) gm/dl Hct 19.7 L* (30.3-42.9) % RDW 18.1 H (13.2-15.2) % Plt Count 128 L (140-440) K/mm3 [place] % (Auto) 13.6 H (0.0-7.3) % Chloride 95.6 L (98-107) mmol/L BUN 40 H (7-17) mg/dL Creatinine 10.4 H (0.7-1.2) mg/dL Crossmatch See Detail Assessment and Plan Multiple myeloma. Aggressive and advanced. * Dxd: 10/16/16. By Bone marrow studies. * IPSS stage: iii. CRABi: Calcium: normal. Renal: Dialysis. Hb: Anemia. Bone lesions: infections: none. = Score: 3/5. * Presenting with renal failure and anemia and with hyper gamma globulinemia. * On Dialysis - Cr was 16.6 and today: 10.1 * Need to start Chemotherapy soon. #2. ESRD 2* to Myeloma. On Dialysis. #3. Anemia of renal disease and myeloma. Severe. Hb: 6. 7g Plan: Continue Dialysis. Patient is ready to start chemoRx and is approved in our office. Before coming here she got admitted to [facility]. [facility] does not allow any in-patient or out-patient chemoRx at this time. So, we have to wait till she is discharged from hospital and then she came to our office. Can not give Revlimid or Alkeran or Zometa when Cr is > 4mg% Only Velcade and Cytoxan and Dexamethasone are available options for her at this time. PRBCs as needed
[2016-10-21] MEDS: HEPARIN IV PRN (17:11)
[2016-10-21] MEDS: ZOFRAN IV PRN ×2 (18:30→20:54)
[2016-10-21] MEDS ORDERED: ALUM-MAG HYDROX-SIMETH 200-200-20MG/5ML PO PRN (18:43)
[2016-10-22] MEDS: ZOFRAN IV PRN ×2 (03:09→21:38)
[2016-10-22 05:42] LABS: Basophils % (Auto) 0.5 % (0.0-1.8); Eosinophils % (Auto) 0.6 % (0.0-4.3); Hematocrit 31.2 % (30.3-42.9); Hemoglobin 10.7 gm/dl (10.1-14.3); Mean Corpuscular HGB Conc 34 % (30-34); Mean Corpuscular Hemoglobin 29 pg (28-32); Mean Corpuscular Volume 85 fl (79-97); Platelet Count 143 K/mm3 (140-440); Red Blood Count 3.66 M/mm3 (3.65-5.03); Red Cell Distribution Width 17.2 % (13.2-15.2); White Blood Count 9.8 K/mm3 (4.5-11.0)
[2016-10-22 06:01] LABS: BUN/Creatinine Ratio 3.18; Calcium 10.7 mg/dL (8.4-10.2); Chloride 88.2 mmol/L (98-107); Potassium 4.2 mmol/L (3.6-5.0)
--- NOTE | 2016-10-22 07:42 | Progress Note ---
Assessment and Plan Assessment and plan: --Acute renal failure/end-stage renal disease on hemodialysis per schedule, Nephrology following His management set up outpatient hemodialysis chair/scheduling Possible discharge tomorrow if's cleared by nephrology --Advanced and aggressive multiple myeloma diagnosed on 10/16/2016 per bone marrow studies, Hematology oncology planning chemotherapy as outpatient --Anemia secondary to renal failure as well as myeloma; received 2 units of PRBC significant improvement of H&H --Hypertension; moderate control continue current antihypertensives and when necessary medications --Back pain multiple myeloma related, hematology oncologist planning chemotherapy as outpatient, pain management --DVT prophylaxis; Lovenox --Patient is full CODE STATUS Plan of Care discussed with the patient her nurse as well as a case management Possible discharge home tomorrow if stable History Interval history: Patient seen and evaluated medical records reviewed No new events reported by the nursing staff Scheduled for hemodialysis today Alert awake oriented 3 not in acute distress Hospitalist Physical - Constitutional Vitals: Temp Pulse Resp BP Pulse Ox 99.0 F 83 20 160/91 98 10/22/16 04:15 10/22/16 04:15 10/22/16 06:12 10/22/16 04:15 10/22/16 04:15 General appearance: Present: no acute distress, well-nourished - EENT Eyes: Present: PERRL, EOM intact - Neck Neck: Present: supple, normal ROM - Respiratory Respiratory effort: normal Respiratory: bilateral: diminished, negative: rales, rhonchi, wheezing - Cardiovascular Rhythm: regular Heart Sounds: Present: S1 & S2 - Extremities Extremities: no ischemia, No edema Peripheral Pulses: within normal limits - Abdominal General gastrointestinal: soft, non-tender, non-distended, normal bowel sounds - Psychiatric Psychiatric: appropriate mood/affect, cooperative - Neurologic Neurologic: CNII-XII intact, moves all extremities Results - Labs CBC & Chem 7: 10/22/16 04:37 10/22/16 04:37 Labs: Laboratory Last Values WBC 9.8 K/mm3 (4.5-11.0) 10/22/16 04:37 RBC 3.66 M/mm3 (3.65-5.03) 10/22/16 04:37 Hgb 10.7 gm/dl (10.1-14.3) D 10/22/16 04:37 Hct 31.2 % (30.3-42.9) D 10/22/16 04:37 MCV 85 fl (79-97) 10/22/16 04:37 MCH 29 pg (28-32) 10/22/16 04:37 MCHC 34 % (30-34) 10/22/16 04:37 RDW 17.2 % (13.2-15.2) H 10/22/16 04:37 Plt Count 143 K/mm3 (140-440) 10/22/16 04:37 Lymph % (Auto) 22.4 % (13.4-35.0) 10/22/16 04:37 [place] % (Auto) 10.9 % (0.0-7.3) H 10/22/16 04:37 Eos % (Auto) 0.6 % (0.0-4.3) 10/22/16 04:37 Baso % (Auto) 0.5 % (0.0-1.8) 10/22/16 04:37 Lymph # 2.2 K/mm3 (1.2-5.4) 10/22/16 04:37 [place] # 1.1 K/mm3 (0.0-0.8) H 10/22/16 04:37 Eos # 0.1 K/mm3 (0.0-0.4) 10/22/16 04:37 Baso # 0.1 K/mm3 (0.0-0.1) 10/22/16 04:37 Seg Neutrophils % 65.6 % (40.0-70.0) 10/22/16 04:37 Seg Neutrophils # 6.4 K/mm3 (1.8-7.7) 10/22/16 04:37 Sodium 135 mmol/L (137-145) L 10/22/16 04:37 Potassium 4.2 mmol/L (3.6-5.0) 10/22/16 04:37 Chloride 88.2 mmol/L (98-107) L 10/22/16 04:37 Carbon Dioxide 23 mmol/L (22-30) 10/22/16 04:37 Anion Gap 28 mmol/L 10/22/16 04:37 BUN 21 mg/dL (7-17) H 10/22/16 04:37 Creatinine 6.6 mg/dL (0.7-1.2) H 10/22/16 04:37 Estimated GFR 8 ml/min 10/22/16 04:37 BUN/Creatinine Ratio 3.18 % 10/22/16 04:37 Glucose 122 mg/dL (65-100) H 10/22/16 04:37 POC Glucose 143 (70-105) H 10/20/16 02:02 Calcium 10.7 mg/dL (8.4-10.2) H 10/22/16 04:37 Phosphorus 5.90 mg/dL (2.5-4.5) H 10/20/16 09:30 Magnesium 2.00 mg/dL (1.7-2.3) 10/21/16 05:08 Iron 52 ug/dL (37-170) 10/20/16 09:30 TIBC 187.60 mcg/dL (250-450) L 10/20/16 09:30 % Saturation 27.72 % 10/20/16 09:30 Transferrin 134 mg/dl (192-382) L 10/20/16 09:30 Ferritin 421.5 ng/mL (13.0-400.0) H 10/20/16 09:30 Total Bilirubin 0.30 mg/dL (0.1-1.2) 10/19/16 16:22 AST 13 units/L (5-40) 10/19/16 16:22 ALT < 5 units/L (7-56) L 10/19/16 16:22 Alkaline Phosphatase 44 units/L (35-129) 10/19/16 16:22 Total Protein 11.1 g/dL (6.3-8.2) H 10/19/16 16:22 Albumin 3.5 g/dL (3.9-5) L 10/19/16 16:22 Albumin/Globulin Ratio 0.5 % 10/19/16 16:22 PTH Intact 65.25 pg/mL (15-65) H 10/20/16 09:30 Hepatitis A IgM Ab Non-reactive (NonReactive) 10/20/16 09:30 Hep Bs Antigen Non-reactive (Negative) 10/20/16 09:30 Hep B Core IgM Ab Non-reactive (NonReactive) 10/20/16 09:30 Hepatitis C Antibody Non-reactive (NonReactive) 10/20/16 09:30 Blood Type AB POSITIVE 10/21/16 07:25 Antibody Screen TNR 07/19/17 07:25 HAL Antibody Screen Negative 10/21/16 07:25 Crossmatch See Detail 10/21/16 07:25
--- NOTE | 2016-10-22 09:30 | Progress Note ---
Subjective Principal diagnosis: esrd Interval history: Time of evaluation 9:20 AM Patient was seen today for follow-up on multiple renal related issues Events of this hospitalization noted She is currently feeling much better pending acceptance at [facility] dialysis [facility] Vitals labs intake output and medications were reviewed Social history: Reviewed Family history: Reviewed Allergy: Reviewed Physical examination Vitals: Reviewed HEENT: Oral mucosa moist Neck: Supple no JVD Chest: Bilateral clear to auscultation no crackles rales or wheezes Heart: Regular rate and rhythm S1 and S2 heard Abdomen: Soft nontender no voluntary guarding rigidity rebound Extremity: Minimal edema dry skin Dermatology; dry skin no edema Neurological alert awake Assessment and plan End-stage renal disease patient will be considered for hemodialysis tomorrow morning she has been feeling relatively weak Anemia in end-stage renal disease: To monitor follow and give erythropoietin as needed Malnutrition risk is high in dialysis patient in general: Please consider high protein diet Hypertension: Blood pressure goal under 140 systolic Bone mineral disorder and secondary hyperparathyroidism to monitor Patient did receive appropriate counseling and education regarding end-stage renal disease care plan, diet lifestyle changes also discussed Hemodialysis tomorrow morning and to keep her on Wednesday vested Wednesday Diversity Manager to arrange for dialysis facility at [facility] We'll continue to follow and make recommendation from renal standpoint Objective - Vital Signs Vital signs: Vital Signs - 12hr 10/21/16 10/22/16 10/22/16 22:00 00:29 04:15 Temperature 98.4 F 99.0 F Pulse Rate 82 Pulse Rate [ 94 H 83 Right Radial] Respiratory 18 20 20 Rate Respiratory 20 Rate [Abdomen] Blood Pressure 172/91 160/91 [Left Arm] O2 Sat by Pulse 98 98 98 Oximetry 10/22/16 10/22/16 10/22/16 06:12 08:48 08:52 Temperature 99.0 F Pulse Rate 84 Pulse Rate [ 81 Right Radial] Respiratory 20 16 Rate Respiratory Rate [Abdomen] Blood Pressure 147/86 [Left Arm] O2 Sat by Pulse 94 Oximetry - Lab 10/22/16 04:37 10/22/16 04:37 Most recent lab results Calcium 10.7 mg/dL (8.4-10.2) H 10/22/16 04:37 Phosphorus 5.90 mg/dL (2.5-4.5) H 10/20/16 09:30 Magnesium 2.00 mg/dL (1.7-2.3) 10/21/16 05:08
[2016-10-22] MEDS: COLACE PO SCH ×2 (15:59→21:38)
[2016-10-23 05:38] LABS: Basophils % (Auto) 0.6 % (0.0-1.8); Hematocrit 32.8 % (30.3-42.9); Hemoglobin 11.2 gm/dl (10.1-14.3); Mean Corpuscular HGB Conc 34 % (30-34); Mean Corpuscular Hemoglobin 29 pg (28-32); Mean Corpuscular Volume 85 fl (79-97); Platelet Count 142 K/mm3 (140-440); Red Blood Count 3.86 M/mm3 (3.65-5.03); Red Cell Distribution Width 17.3 % (13.2-15.2); White Blood Count 7.6 K/mm3 (4.5-11.0)
[2016-10-23 05:57] LABS: BUN/Creatinine Ratio 3.26; Calcium 10.2 mg/dL (8.4-10.2); Potassium 3.6 mmol/L (3.6-5.0)
[2016-10-23] MEDS: ZOFRAN IV PRN ×2 (06:44→12:07)
--- NOTE | 2016-10-23 09:15 | Discharge Summary ---
Providers - Providers Date of Admission: 10/20/16 01:21 Date of discharge: 10/23/16 Attending physician: KIMBERLEY CATHERINE 10/20/16 02:04 Consult to Physician [CONS] Routine Consulting Provider: LEENA PARK Reason For Exam: back pain Place consult to:: Dr NARVAEZ Notified:: medical unit secretary pl call Phone number called:: [phone] Was contact made?: Yes If yes, spoke with:: dilan Time called:: 09:49 Comment:: left message on machine 10/20/16 04:08 Consult to Dietitian/Nutrition [CONS] Routine Physician Instructions: Reason For Exam: Reason for Consult: Poor oral intake 10/20/16 09:15 Consult to Case Management [CONS] Routine Services Needed at Discharge: Other Notified:: case resource manager Additional Physician Instructions: outpatient dialysis [facility] at 12 noon Primary care physician: [employer] Hospitalization Condition: Stable Disposition: DC-01 TO HOME OR SELFCARE Core Measure Documentation - Palliative Care Palliative Care/ Comfort Measures: Not Applicable - Core Measures Any of the following diagnoses?: none Exam - Constitutional Vitals: Temp Pulse Resp BP Pulse Ox 98.7 F 91 H 16 158/86 95 10/23/16 08:22 10/23/16 08:22 10/23/16 08:22 10/23/16 08:22 10/23/16 08:22 General appearance: Present: no acute distress, well-nourished - EENT Eyes: Present: PERRL, EOM intact - Neck Neck: Present: supple, normal ROM - Respiratory Respiratory effort: normal Respiratory: bilateral: diminished, negative: rales, rhonchi, wheezing - Cardiovascular Rhythm: regular Heart Sounds: Present: S1 & S2 - Extremities Extremities: no ischemia, pulses intact Peripheral Pulses: within normal limits - Abdominal General gastrointestinal: Present: soft, non-tender, non-distended, normal bowel sounds - Integumentary Integumentary: Present: clear, warm - Musculoskeletal Musculoskeletal: strength equal bilaterally, generalized weakness - Psychiatric Psychiatric: appropriate mood/affect, cooperative - Neurologic Neurologic: CNII-XII intact, moves all extremities Plan Activity: advance as tolerated, fall precautions Diet: renal Special Instructions: physical therapy Additional Instructions: f/u Renal / HD per schedule Follow up with: PRIMARY CARE, [Primary Care Provider] - 3-5 Days LEENA PARK MD [Staff Physician] - 7 Days NICKO MURILLO MD [Staff Physician] - 7 Days Prescriptions: Docusate Sodium [Colace CAP] 100 mg PO BID #30 capsule Megestrol [Megace] 20 mg PO QID #60 tablet Omeprazole 40 mg PO DAILY #30 capsule. Ondansetron [Zofran TAB] 4 mg PO Q8HR PRN #30 tablet PRN Reason: Nausea
[2016-10-23] MEDS: COLACE PO SCH (09:38)
[2016-10-23] MEDS ORDERED: NACL 0.9% 100 ML IV PRN (11:22)
--- NOTE | 2016-10-23 11:24 | Progress Note ---
Subjective Principal diagnosis: esrd Interval history: Time of evaluation 9:20 AM Patient was seen today for follow-up on multiple renal related issues Events of this hospitalization noted She is currently feeling much better pending acceptance at [facility] Vitals labs intake output and medications were reviewed Social history: Reviewed Family history: Reviewed Allergy: Reviewed Physical examination Vitals: Reviewed HEENT: Oral mucosa moist Neck: Supple no JVD Chest: Bilateral clear to auscultation no crackles rales or wheezes Heart: Regular rate and rhythm S1 and S2 heard Abdomen: Soft nontender no voluntary guarding rigidity rebound Extremity: Minimal edema dry skin Dermatology; dry skin no edema Neurological alert awake Assessment and plan End-stage renal disease patient will be considered for hemodialysis tomorrow morning she has been feeling relatively weak Anemia in end-stage renal disease: To monitor follow and give erythropoietin as needed Malnutrition risk is high in dialysis patient in general: Please consider high protein diet Hypertension: Blood pressure goal under 140 systolic Bone mineral disorder and secondary hyperparathyroidism to monitor Patient did receive appropriate counseling and education regarding end-stage renal disease care plan, diet lifestyle changes also discussed Hemodialysis tomorrow morning and to keep her on Wednesday vested Wednesday Supervisor [employer] to arrange for dialysis facility at [facility] We'll continue to follow and make recommendation from renal standpoint Objective - Vital Signs Vital signs: Vital Signs - 12hr 10/23/16 10/23/16 10/23/16 00:10 04:05 08:22 Temperature 99.6 F 98.7 F 98.7 F Pulse Rate [ 82 89 91 H Right Radial] Respiratory 20 18 16 Rate Blood Pressure 132/93 139/92 158/86 [Left Arm] O2 Sat by Pulse 98 97 95 Oximetry - Lab 10/23/16 05:13 10/23/16 05:13 Most recent lab results Calcium 10.2 mg/dL (8.4-10.2) 10/23/16 05:13 Phosphorus 5.90 mg/dL (2.5-4.5) H 10/20/16 09:30 Magnesium 2.00 mg/dL (1.7-2.3) 10/21/16 05:08
[2016-10-23] MEDS ORDERED: NACL 0.9 (PRIMING MACHINE ONLY DIALYSIS) MC ONE (17:04)
[2016-10-23] MEDS: HEPARIN IV PRN (18:20)
[2016-10-23 19:14] VITALS: BP 124/82
--- NOTE | 2016-10-23 20:25 | Discharge Summary ---
Providers - Providers Date of Admission: 10/20/16 01:21 Date of discharge: 10/23/16 Attending physician: KIMBERLEY CATHERINE 10/20/16 02:04 Consult to Physician [CONS] Routine Consulting Provider: LEENA PARK Reason For Exam: back pain Place consult to:: Dr NARVAEZ Notified:: secretary of police pl call Phone number called:: [phone] Was contact made?: Yes If yes, spoke with:: dilan Time called:: 09:49 Comment:: left message on machine 10/20/16 04:08 Consult to Dietitian/Nutrition [CONS] Routine Physician Instructions: Reason For Exam: Reason for Consult: Poor oral intake 10/20/16 09:15 Consult to Case Management [CONS] Routine Services Needed at Discharge: Other Notified:: home health care case manager Additional Physician Instructions: outpatient dialysis varinder hol[facility] at 12 noon Primary care physician: NARCOTICS AND VICE DETECTIVE Hospitalization Reason for admission: generalized weakness/acute renal failure/anemia Condition: Stable Pertinent studies: CT abdomen and pelvis; mild haziness of the fat along the left renal pelvis with borderline wall thickening large and small bowel loops normal in caliber Mild to moderate diverticulosis Patchy matter attenuation of the lumbar spine there is incidental findings Procedures: Hemodialysis, PRBC transfusion Hospital course: 65-year-old female patient with significant past medical history of hypertension chronic kidney disease was admitted through emergency room with the generalized weakness and decreased oral intake, patient was initially evaluated noted to be in acute on chronic renal failure with creatinine of 16, patient was evaluated by marshmallow runner and started hemodialysis Has following medical conditions which were managed as detailed below Discharge diagnosis; and management --Acute renal failure; evaluated by marshmallow runner, underwent hemodialysis per schedule, social services director have set up outpatient hemodialysis chair, and is being discharged to follow with nephrology and hemodialysis per schedule. 3 times a week -- Advanced aggressive multiple myeloma; hematology oncologist has set up outpatient chemotherapy, upon discharge from the hospital --Anemia requiring 2 units of PRBC transfusion; significant improvement of H&H --Hypertension; closely monitor the blood pressures and adjusted the medications --Back pain; probably myeloma related hematology oncology following supportive care Patient symptoms slightly improved, today is comfortable in bed alert awake oriented 3 not in acute distress Vital signs reviewed, [id number] evaluation physical examination done by me prior to discharge is unremarkable as detailed below Patient is hemodynamically and clinically stable with guarded prognosis at the time of discharge Disposition: DC-01 TO HOME OR SELFCARE Time spent for discharge: 32 min Core Measure Documentation - Palliative Care Palliative Care/ Comfort Measures: Not Applicable - Core Measures Any of the following diagnoses?: none Exam - Constitutional Vitals: Temp Pulse Resp BP Pulse Ox 98.0 F 89 16 124/82 95 10/23/16 18:30 10/23/16 18:30 10/23/16 18:30 10/23/16 18:30 10/23/16 11:36 General appearance: Present: no acute distress, well-nourished, cachectic - EENT Eyes: Present: PERRL, EOM intact - Neck Neck: Present: supple, normal ROM - Respiratory Respiratory effort: normal Respiratory: bilateral: diminished, negative: rales, rhonchi, wheezing - Cardiovascular Rhythm: regular Heart Sounds: Present: S1 & S2 - Extremities Extremities: no ischemia, No edema - Abdominal General gastrointestinal: Present: soft, non-tender, non-distended, normal bowel sounds - Integumentary Integumentary: Present: clear, warm - Musculoskeletal Musculoskeletal: strength equal bilaterally - Psychiatric Psychiatric: appropriate mood/affect, cooperative - Neurologic Neurologic: CNII-XII intact, moves all extremities Plan Activity: no restrictions, fall precautions Diet: renal Follow up with: PRIMARY CARE, [Primary Care Provider] - 3-5 Days LEENA PARK MD [Staff Physician] - 7 Days NICKO MURILLO MD [Staff Physician] - 7 Days Prescriptions: Docusate Sodium [Colace CAP] 100 mg PO BID #30 capsule Megestrol [Megace] 20 mg PO QID #60 tablet Omeprazole 40 mg PO DAILY #30 capsule. Ondansetron [Zofran TAB] 4 mg PO Q8HR PRN #30 tablet PRN Reason: Nausea
== END 2016-10-23 20:00 | disposition home health service (06) | DRG 840 ==
LOC: ED 15:47 → 4A 10-20 01:21
PROVIDERS: ADMIT Internal Medicine; ATTEND Internal Medicine
PROC: 30233N1 Transfusion of Nonautologous Red Blood Cells into Peripheral Vein, Percutaneous Approach (ICD-10-PCS; principal; 2016-10-20)
PROC: 5A1D60Z (ICD-10-PCS; 2016-10-20)
DX: C90.00 Multiple myeloma not having achieved remission (principal); N18.6 End stage renal disease; N17.9 Acute kidney failure, unspecified; I12.0 Hypertensive chronic kidney disease with stage 5 chronic kidney disease or end stage renal disease; E46 Unspecified protein-calorie malnutrition; M54.9 Dorsalgia, unspecified; M19.90 Unspecified osteoarthritis, unspecified site; D63.1 Anemia in chronic kidney disease; Z82.49 Family history of ischemic heart disease and other diseases of the circulatory system
CPT/HCPCS: 36415; 36430; 74176; 80048; 80053; 80074; 82728; 82962; 83550; 83735; 83970; 84100; 85025; 86706; 86803; 86850; 86900; 86901; 86920; 93005; 93010; 96374; 96375; J0885; J1644; J1756; J2405; J7030; P9016

== ENCOUNTER 2016-11-26 11:29 | Emergency (ER) | payer MEDICARE ==
[2016-11-26] MEDS ORDERED: NACL 0.9% 1000 ML 1,000 ML IV ONE (12:41)
[2016-11-26] MEDS ORDERED: MORPHINE IV ONE (12:41)
[2016-11-26 12:42] LABS: Hematocrit 26.3 % (30.3-42.9); Hemoglobin 8.9 gm/dl (10.1-14.3); Mean Corpuscular HGB Conc 34 % (30-34); Mean Corpuscular Hemoglobin 29 pg (28-32); Mean Corpuscular Volume 86 fl (79-97); Platelet Count 185 K/mm3 (140-440); Red Blood Count 3.05 M/mm3 (3.65-5.03); Red Cell Distribution Width 18.2 % (13.2-15.2); White Blood Count 5.5 K/mm3 (4.5-11.0)
[2016-11-26 12:57] LABS: BUN/Creatinine Ratio 2.44; Chloride 93.4 mmol/L (98-107)
--- NOTE | 2016-11-26 13:02 | Emergency Department Report ---
HPI - General Chief Complaint: Pain General Time Seen by Provider: 11/26/16 12:13 - HPI HPI: 66 year-old female who presents to the emergency department complaint of a one-week history of pain in the lower extremities, especially in the joints. She denies any skin color change, warmth, fluctuance and she denies any trauma to these regions. The patient has tramadol for chronic pains from her arthritis and multiple myeloma but it has not been helping. Her software test developer/oncologist, Dr. NARVAEZ, is currently out of town. She denies any fever , nausea, vomiting, chest pain or shortness of breath. She took one dose of her tramadol without any relief. She also has a past medical history of end- stage renal disease on dialysis on Wednesday, Wednesday, Wednesday and did have dialysis yesterday. Her software licensing executive is Dr. Leon. ED Past Medical Hx - Past Medical History Previous Medical History?: Yes Hx Hypertension: Yes Hx Renal Disease: Yes (HD MWF) Hx Arthritis: Yes Additional medical history: Multiple Myeloma. Anemia, arthritis - Surgical History Past Surgical History?: No - Social History Smoking Status: Never Smoker Substance Use Type: None - Medications Home Medications: Home Medications Medication Instructions Recorded Confirmed Last Taken Type Carvedilol [Coreg] 50 mg PO BID 10/19/16 11/26/16 11/25/16 History Megestrol [Megace] 20 mg PO QID #60 tablet 10/23/16 11/26/16 11/26/16 Rx Omeprazole 40 mg PO DAILY #30 capsule. 10/23/16 11/26/16 11/25/16 Rx Ondansetron [Zofran TAB] 4 mg PO Q8HR PRN #30 tablet 10/23/16 11/26/16 Unknown Rx HYDROcodone/APAP 5-325 [Warren 1 each PO Q6HR PRN #12 tablet 11/26/16 Unknown Rx 5/325] Verapamil ER [Calan Sr] 180 mg PO DAILY 11/26/16 11/26/16 11/25/16 History Vit B Cplx #11/FA/C/Biot/Zn Ox 1 each PO DAILY 11/26/16 11/26/16 11/25/16 History [Dialyvite with Zinc Tablet] traMADol [Ultram] 50 mg PO Q6HR PRN 11/26/16 11/26/16 Unknown History ED Review of Systems ROS: Stated complaint: UNBEARABLE PAIN Other details as noted in HPI Comment: All other systems reviewed and negative Constitutional: denies: chills, fever Eyes: denies: eye pain, eye discharge, vision change ENT: denies: ear pain, throat pain Respiratory: denies: cough, shortness of breath, wheezing Cardiovascular: denies: chest pain, palpitations Gastrointestinal: denies: abdominal pain, nausea, diarrhea Genitourinary: denies: urgency, dysuria, discharge Musculoskeletal: arthralgia. denies: joint swelling Skin: denies: rash, lesions Neurological: denies: headache, weakness, paresthesias Physical Exam - Physical Exam Vital Signs: Vital Signs 11/26/16 11:37 Temperature 99.0 F Pulse Rate 91 H Respiratory 16 Rate Blood Pressure 147/99 O2 Sat by Pulse 99 Oximetry Physical Exam: GENERAL: The patient is well-developed well-nourished. HENT: Normocephalic. Atraumatic. Patient has moist mucous membranes. EYES: Extraocular motions are intact. Pupils equal reactive to light bilaterally. NECK: Supple. Trachea is midline. CHEST/LUNGS: Clear to auscultation. There is no respiratory distress noted. HEART/CARDIOVASCULAR: Regular. There is no tachycardia. There is no gallop rub or murmur. ABDOMEN: Abdomen is soft, nontender. Patient has normal bowel sounds. There is no abdominal distention. SKIN: Skin is warm and dry. There is no obvious edema. There is no erythema, fluctuance or warmth to the joints. NEURO: The patient is awake, alert, and oriented. The patient is cooperative. The patient has no focal neurologic deficits. The patient has normal speech. MUSCULOSKELETAL: Unable to reproduce pain to palpation of the affected joints of the lower extremities. No obvious deformity. Refill less than 2 seconds. Radial pulses +2 over 4 bilaterally. ED Course Vital Signs 11/26/16 11:37 Temperature 99.0 F Pulse Rate 91 H Respiratory 16 Rate Blood Pressure 147/99 O2 Sat by Pulse 99 Oximetry ED Medical Decision Making - Lab Data Result diagrams: 11/26/16 12:25 11/26/16 12:25 - Medical Decision Making 66-year-old female with a history of multiple myeloma and osteoarthritis presents with some pain in the joints of her lower extremities. They do not appear to be a septic joint as there is no erythema, warmth, fluctuance. There has been no trauma. No obvious deformities. She was given a dose of pain medication and that almost completely resolved her discomfort. We got some basic labs on her that showed hypokalemia with a potassium of 2.7. There is renal sufficiency but the patient has end-stage renal disease on hemodialysis. She was given IV and oral potassium chloride which bring her up closer to about 3.3 or 3.4. Her vital signs were stable throughout ED course. Since patient is stable and feeling improved she was discharged home to follow up with her primary care doctor, software test developer and with her normal dialysis regiment. She will return to the ER if any worsening of her symptoms or any acute distress. Critical Care Time: No Critical care attestation.: If time is entered above; I have spent that time in minutes in the direct care of this critically ill patient, excluding procedure time. ED Disposition Clinical Impression: Hypokalemia Anemia Qualifiers: Anemia type: unspecified type Qualified Code(s): D64.9 - Anemia, unspecified HTN (hypertension) Qualifiers: Hypertension type: essential hypertension Qualified Code(s): I10 - Essential ( primary) hypertension CKD (chronic kidney disease) Qualifiers: Chronic kidney disease stage: on chronic dialysis Qualified Code(s): N18.6 - End stage renal disease Joint pain Qualifiers: Joint pain location: unspecified Qualified Code(s): M25.50 - Pain in unspecified joint Disposition: DC-01 TO HOME OR SELFCARE Is pt being admited?: No Condition: Stable Instructions: Chronic Kidney Disease (ED), Hypertension (ED), Arthralgia (ED) Additional Instructions: Please follow-up with your primary care doctor and software test developer/oncologist as soon as possible. Continue with her normal dialysis schedule. Return to the emergency Department with any worsening of her symptoms or any acute distress. You have been prescribed a medication that is sedating and therefore should not be taken prior to driving, working, and responsible for children and in no way should be mixed with alcohol of any quantity. Prescriptions: HYDROcodone/APAP 5-325 [Warren 5/325] 1 each PO Q6HR PRN #12 tablet PRN Reason: Pain Referrals: PRIMARY CARE, [Primary Care Provider] - [facility] Time of Disposition: 16:58
[2016-11-26 13:03] LABS: Potassium 2.7 mmol/L (3.6-5.0)
[2016-11-26] MEDS ORDERED: K-DUR PO ONE (13:04)
[2016-11-26 13:21] LABS: Anisocytosis 1+; Basophils % (Manual) 0 % (0.0-1.8); Blastocytes % (Manual) 0 %; Diff Status Complete; Eosinophils % (Manual) 0 % (0.0-4.3); Large Platelets Rare; Platelet Estimate Cons
[2016-11-26] MEDS: KCL 10MEQ/100ML 10 MEQ/100 ML BAG IV SCH ×2 (13:51→15:10)
[2016-11-26 17:48] VITALS: BP 160/98
== END 2016-11-26 17:49 | disposition home or self-care (01) ==
LOC: ED 11:29
DX: I12.9 Hypertensive chronic kidney disease with stage 1 through stage 4 chronic kidney disease, or unspecified chronic kidney disease (principal); N18.9 Chronic kidney disease, unspecified; E87.6 Hypokalemia; D64.9 Anemia, unspecified; M19.90 Unspecified osteoarthritis, unspecified site
CPT/HCPCS: 36415; 80048; 85007; 85025; 96361; 96365; 96375; 99283; J2270; J3480; J7030

== ENCOUNTER 2016-12-03 11:06 | Emergency (ER) | payer MEDICARE ==
[2016-12-03 12:25] LABS: Hematocrit 28.7 % (30.3-42.9); Hemoglobin 9.5 gm/dl (10.1-14.3); Mean Corpuscular HGB Conc 33 % (30-34); Mean Corpuscular Hemoglobin 29 pg (28-32); Mean Corpuscular Volume 87 fl (79-97); Platelet Count 344 K/mm3 (140-440); Red Blood Count 3.31 M/mm3 (3.65-5.03); Red Cell Distribution Width 18.9 % (13.2-15.2); White Blood Count 5.3 K/mm3 (4.5-11.0)
[2016-12-03 12:52] LABS: Albumin 3.7 g/dL (3.9-5); Albumin/Globulin Ratio 0.9 %; Alkaline Phosphatase 64 units/L (35-129); Anion Gap 28 mmol/L; BUN/Creatinine Ratio 2.63; Blood Urea Nitrogen 19 mg/dL (7-17); Calcium 9.8 mg/dL (8.4-10.2); Carbon Dioxide 21 mmol/L (22-30); Chloride 94.3 mmol/L (98-107); Glucose 84 mg/dL (65-100); Lipase 74 units/L (13-60); Potassium 3.5 mmol/L (3.6-5.0); Sodium 140 mmol/L (137-145); Total Protein 7.9 g/dL (6.3-8.2)
[2016-12-03 13:18] LABS: Alanine Aminotransferase < 5 units/L (7-56)
[2016-12-03] MEDS ORDERED: DILAUDID IV ONE ×2 (13:19→13:45)
[2016-12-03] MEDS ORDERED: BENADRYL IV ONE (13:20)
[2016-12-03] MEDS ORDERED: ZOFRAN IV ONE (13:20)
[2016-12-03 15:03] VITALS: BP 128/76
--- NOTE | 2016-12-03 15:04 | Emergency Department Report ---
ED General Adult HPI - General Chief complaint: Extremity Problem,Nontraumatic Stated complaint: BILATERAL LEG PAIN/HIP TO FOOT Time Seen by Provider: 12/03/16 13:30 Source: patient, EMS Mode of arrival: Stretcher Limitations: Physical Limitation - History of Present Illness Initial comments: 66-year-old female the medical history of arthritis, hypertension, end-stage renal disease on dialysis, and multiple myeloma presents to the hospital complaints of body pain. The patient has had ongoing chronic pain secondary to multiple myeloma. Patient was diagnosed in August 2016 and recently completed her first shot of her second round of chemotherapy. Patient has recently been prescribed [place] and tramadol however, this does not improve her pain. Dr. lopes initially prescribed methadone 5 mg by mouth twice a day and Dilaudid 2 mg by mouth every 4 hours however, family states no pharmacy has the methadone and they are unable to separate the medications and given Dilaudid. Constipation reported without fever, nausea, or vomiting. Patient takes a laxative with relief .Patient has been compliant with dialysis. Severity scale (0 -10): 3 - Related Data Home Medications Medication Instructions Recorded Confirmed Last Taken Carvedilol [Coreg] 50 mg PO BID 10/19/16 11/26/16 11/25/16 Verapamil ER [Calan Sr] 180 mg PO DAILY 11/26/16 11/26/16 11/25/16 Vit B Cplx #11/FA/C/Biot/Zn Ox 1 each PO DAILY 11/26/16 11/26/16 11/25/16 [Dialyvite with Zinc Tablet] traMADol [Ultram] 50 mg PO Q6HR PRN 11/26/16 11/26/16 Unknown Previous Rx's Medication Instructions Recorded Last Taken Type Megestrol [Megace] 20 mg PO QID #60 tablet 10/23/16 11/26/16 Rx Omeprazole 40 mg PO DAILY #30 capsule. 10/23/16 11/25/16 Rx Ondansetron [Zofran TAB] 4 mg PO Q8HR PRN #30 tablet 10/23/16 Unknown Rx HYDROcodone/APAP 5-325 [[place] 1 each PO Q6HR PRN #12 tablet 11/26/16 Unknown Rx 5/325] HYDROmorphone [Dilaudid] 1 mg PO Q4HR PRN #20 tablet 12/03/16 Unknown Rx Allergies Allergy/AdvReac Type Severity Reaction Status Date / Time No Known Allergies Allergy Verified 10/19/16 15:54 ED Review of Systems ROS: Stated complaint: BILATERAL LEG PAIN/HIP TO FOOT Other details as noted in HPI Comment: All other systems reviewed and negative Other: Constitutional: No fevers chills or weight loss Eyes: No eye pain visual changes or discharge ENT: No ear pain or throat pain Neck: Denies pain Respiratory: Denies cough wheezing shortness of breath Cardiovascular: Denies chest pain, palpitations, syncope GI: constipation : Denies dysuria Musculoskeletal: as per hpi Skin: Denies rash, lesions, erythema Neurologic: Denies headache ED Past Medical Hx - Past Medical History Previous Medical History?: Yes Hx Hypertension: Yes Hx Renal Disease: Yes (HD MWF) Hx Arthritis: Yes Additional medical history: Multiple Myeloma. Anemia, arthritis - Surgical History Past Surgical History?: Yes Hx Cholecystectomy: Yes Additional Surgical History: VAS cath to right chest - Social History Smoking Status: Never Smoker Substance Use Type: Prescribed - Medications Home Medications: Home Medications Medication Instructions Recorded Confirmed Last Taken Type Carvedilol [Coreg] 50 mg PO BID 10/19/16 11/26/16 11/25/16 History Megestrol [Megace] 20 mg PO QID #60 tablet 10/23/16 11/26/16 11/26/16 Rx Omeprazole 40 mg PO DAILY #30 capsule. 10/23/16 11/26/16 11/25/16 Rx Ondansetron [Zofran TAB] 4 mg PO Q8HR PRN #30 tablet 10/23/16 11/26/16 Unknown Rx HYDROcodone/APAP 5-325 [[place] 1 each PO Q6HR PRN #12 tablet 11/26/16 Unknown Rx 5/325] Verapamil ER [Calan Sr] 180 mg PO DAILY 11/26/16 11/26/16 11/25/16 History Vit B Cplx #11/FA/C/Biot/Zn Ox 1 each PO DAILY 11/26/16 11/26/16 11/25/16 History [Dialyvite with Zinc Tablet] traMADol [Ultram] 50 mg PO Q6HR PRN 11/26/16 11/26/16 Unknown History HYDROmorphone [Dilaudid] 1 mg PO Q4HR PRN #20 tablet 12/03/16 Unknown Rx ED Physical Exam - General Limitations: Physical Limitation - Other Other exam information: General: No limitations, mild distress secondary to pain Head exam: Atraumatic, normocephalic Eyes exam: Normal appearance ENT: Moist mucous membrane, normal oropharynx Neck exam: Normal inspection, full range of motion, no meningismus nontender Respiratory exam: Clear to auscultation bilateral, no wheezes, rales, crackles Cardiovascular: Normal rate and rhythm, normal heart sounds Abdomen: Soft, nondistended, mild generalized pain, with normal bowel sounds, no rebound, or guarding Extremity: Generalized extremity pain is worse with movement Back: Normal Inspection, full range of motion, no tenderness Neurologic: Alert, oriented x3, cranial nerves intact, no motor or sensory deficit Psychiatric: normal affect, normal mood Skin: Warm, dry, intact ED Course - Reevaluation(s) Reevaluation #1: 12/03/16 15:05 Patient received Dilaudid 1 mg and 4 of Zofran as well as 25 mg of Benadryl has improvement in pain at this time. ED Medical Decision Making - Lab Data Result diagrams: 12/03/16 11:52 12/03/16 11:52 Lab Results 12/03/16 12/03/16 Range/Units 11:52 11:52 WBC 5.3 (4.5-11.0) K/mm3 RBC 3.31 L (3.65-5.03) M/mm3 Hgb 9.5 L (10.1-14.3) gm/dl Hct 28.7 L (30.3-42.9) % MCV 87 (79-97) fl MCH 29 (28-32) pg MCHC 33 (30-34) % RDW 18.9 H (13.2-15.2) % Plt Count 344 (140-440) K/mm3 Lymph % (Auto) [place] % (Auto) [place] Eos % (Auto) [place] Baso % (Auto) [place] Lymph # [place] # [place] Eos # [place] Baso # [place] Seg Neutrophils % [place] Seg Neutrophils # [place] Sodium 140 (137-145) mmol/L Potassium 3.5 L (3.6-5.0) mmol/L Chloride 94.3 L (98-107) mmol/L Carbon Dioxide 21 L (22-30) mmol/L Anion Gap 28 mmol/L BUN 19 H (7-17) mg/dL Creatinine 7.2 H (0.7-1.2) mg/dL Estimated GFR 7 ml/min BUN/Creatinine Ratio 2.63 % Glucose 84 (65-100) mg/dL Calcium 9.8 (8.4-10.2) mg/dL Total Bilirubin 0.30 (0.1-1.2) mg/dL AST 13 (5-40) units/L ALT < 5 L (7-56) units/L Alkaline Phosphatase 64 (35-129) units/L Total Protein 7.9 (6.3-8.2) g/dL Albumin 3.7 L (3.9-5) g/dL Albumin/Globulin Ratio 0.9 % Lipase 74 H (13-60) units/L - Medical Decision Making Patient was written for 60 tablets of methadone and 90 tablets of Dilaudid. She was unable to fill the meds as written I will prescribe Dilaudid 2 mg every 4hr 20 tabs to give her time to follow up with her primary care doctor/ oncologist for adjustments in her medications so that she may get them filled. Patient already has a laxative at home that she takes intimately for constipation. She was informed that narcotics worsen constipation - Differential Diagnosis chronic pain, multiple myeloma, infection Critical Care Time: No Critical care attestation.: If time is entered above; I have spent that time in minutes in the direct care of this critically ill patient, excluding procedure time. ED Disposition Clinical Impression: Chronic pain, Multiple myeloma, ESRD on dialysis Disposition: TO HOME OR SELFCARE Is pt being admited?: Yes Condition: Stable Instructions: Multiple Myeloma (ED), Chronic Pain (ED) Additional Instructions: Call Dr. NARVAEZ's office so that they may adjust your medication prescription so that you can get them filled. Take the medication as described. Return if symptoms worsen. Prescriptions: HYDROmorphone [Dilaudid] 1 mg PO Q4HR PRN #20 tablet PRN Reason: Pain Referrals: LEENA PARK MD [Staff Physician] - [facility] Time of Disposition: 15:14
== END 2016-12-03 15:28 | disposition home or self-care (01) ==
LOC: ED 11:06
DX: C90.00 Multiple myeloma not having achieved remission (principal); G89.29 Other chronic pain; I12.0 Hypertensive chronic kidney disease with stage 5 chronic kidney disease or end stage renal disease; N18.6 End stage renal disease; M19.90 Unspecified osteoarthritis, unspecified site; D64.9 Anemia, unspecified
CPT/HCPCS: 36415; 80053; 83690; 85025; 96374; 96375; 99284; J1170; J1200; J2405

== ENCOUNTER 2017-02-12 12:26 | Inpatient (IN) | payer MEDICARE ==
[2017-02-12] MEDS ORDERED: NACL 0.9% 500 ML 500 ML IV ONE (15:05)
[2017-02-12 15:18] LABS: Hematocrit 34.7 % (30.3-42.9); Hemoglobin 11.1 gm/dl (10.1-14.3); Mean Corpuscular HGB Conc 32 % (30-34); Mean Corpuscular Hemoglobin 29 pg (28-32); Mean Corpuscular Volume 91 fl (79-97); Red Blood Count 3.83 M/mm3 (3.65-5.03); Red Cell Distribution Width 17.2 % (13.2-15.2); White Blood Count 7.1 K/mm3 (4.5-11.0)
[2017-02-12 15:29] LABS: INR 1.22 (0.87-1.13)
[2017-02-12 15:30] LABS: Partial Thromboplastin Time 34.5 Sec. (24.2-36.6)
--- NOTE | 2017-02-12 15:31 | Emergency Department Report ---
ED N/V/D HPI - General Chief complaint: Nausea/Vomiting/Diarrhea Stated complaint: DIARRHEA Time Seen by Provider: 02/12/17 14:57 Source: patient, family, old records reviewed Mode of arrival: Stretcher Limitations: No Limitations - History of Present Illness Initial comments: 66-year-old female with a past medical history of multiple myeloma, end-stage disease on hemodialysis Wednesday, Wednesday, Wednesday, arthritis, and hypertension presents to the hospital with complaints of diarrhea 3 days. Decreased by mouth intake reported. Patient denies any pain, melena, hematochezia, fever, recent travel, recent antibiotic use, or sick contacts. Patient presents with low blood pressure with typical BP systolic in the 140s. Patient did take her BP medications today prior to arrival. She is due for dialysis today. No shortness of breath reported - Related Data Home Medications Medication Instructions Recorded Confirmed Last Taken Carvedilol [Coreg] 50 mg PO BID 10/19/16 11/26/16 11/25/16 B Complex 11/Folic/C/Biot/Zinc 1 each PO DAILY 11/26/16 11/26/16 11/25/16 [Dialyvite with Zinc Tablet] Verapamil ER [Calan Sr] 180 mg PO DAILY 11/26/16 11/26/16 11/25/16 traMADol [Ultram] 50 mg PO Q6HR PRN 11/26/16 11/26/16 Unknown Previous Rx's Medication Instructions Recorded Last Taken Type Megestrol [Megace] 20 mg PO QID #60 tablet 10/23/16 11/26/16 Rx Omeprazole 40 mg PO DAILY #30 capsule. 10/23/16 11/25/16 Rx Ondansetron [Zofran TAB] 4 mg PO Q8HR PRN #30 tablet 10/23/16 Unknown Rx HYDROcodone/APAP 5-325 [[place] 1 each PO Q6HR PRN #12 tablet 11/26/16 Unknown Rx 5/325] HYDROmorphone [Dilaudid] 1 mg PO Q4HR PRN #20 tablet 12/03/16 Unknown Rx Allergies Allergy/AdvReac Type Severity Reaction Status Date / Time No Known Allergies Allergy Verified 10/19/16 15:54 ED Review of Systems ROS: Stated complaint: DIARRHEA Other details as noted in HPI Comment: All other systems reviewed and negative Other: Constitutional: No fevers chills Eyes: No eye pain visual changes ENT: No ear pain or throat pain Neck: Denies pain Respiratory: Denies cough wheezing shortness of breath Cardiovascular: Denies chest pain, palpitations, syncope GI: As per HPI : Typically patient has urine output at least once a day Musculoskeletal: Denies back pain Skin: Denies rash, lesions, erythema Neurologic: Denies headache, numbness, weakness Psychiatric: Denies suicidal ideation, hallucinations ED Past Medical Hx - Past Medical History Hx Hypertension: Yes Hx Renal Disease: Yes (HD MWF) Hx Arthritis: Yes Additional medical history: Multiple Myeloma. Anemia, arthritis - Surgical History Hx Cholecystectomy: Yes Additional Surgical History: VAS cath to right chest - Social History Smoking Status: Never Smoker Substance Use Type: None - Medications Home Medications: Home Medications Medication Instructions Recorded Confirmed Last Taken Type Carvedilol [Coreg] 50 mg PO BID 10/19/16 11/26/16 11/25/16 History Megestrol [Megace] 20 mg PO QID #60 tablet 10/23/16 11/26/16 11/26/16 Rx Omeprazole 40 mg PO DAILY #30 capsule. 10/23/16 11/26/16 11/25/16 Rx Ondansetron [Zofran TAB] 4 mg PO Q8HR PRN #30 tablet 10/23/16 11/26/16 Unknown Rx B Complex 11/Folic/C/Biot/Zinc 1 each PO DAILY 11/26/16 11/26/16 11/25/16 History [Dialyvite with Zinc Tablet] HYDROcodone/APAP 5-325 [[place] 1 each PO Q6HR PRN #12 tablet 11/26/16 Unknown Rx 5/325] Verapamil ER [Calan Sr] 180 mg PO DAILY 11/26/16 11/26/16 11/25/16 History traMADol [Ultram] 50 mg PO Q6HR PRN 11/26/16 11/26/16 Unknown History HYDROmorphone [Dilaudid] 1 mg PO Q4HR PRN #20 tablet 12/03/16 Unknown Rx ED Physical Exam - General Limitations: No Limitations - Other Other exam information: General: No limitations, patient is alert in no acute distress Head exam: Atraumatic, normocephalic Eyes exam: Normal appearance, ENT: Moist mucous membrane, normal oropharynx Neck exam: Normal inspection, full range of motion, no meningismus nontender Respiratory exam: Clear to auscultation bilateral, no wheezes, rales, crackles Cardiovascular: Normal rate and rhythm, normal heart sounds Abdomen: Soft, nondistended, and nontender, with normal bowel sounds, no rebound, or guarding Extremity: Full range of motion normal inspection no deformity, pedal edema Back: Normal Inspection, full range of motion, no tenderness Neurologic: Alert, oriented x3, cranial nerves intact, no motor or sensory deficit Psychiatric: normal affect, normal mood Skin: Warm, dry, intact ED Course Vital Signs 02/12/17 02/12/17 02/12/17 14:11 14:15 14:18 Temperature 98.0 F Pulse Rate 68 67 Respiratory 10 L 14 Rate Blood Pressure 98/77 80/53 Blood Pressure 80/53 [Left] O2 Sat by Pulse 99 98 Oximetry - Reevaluation(s) Reevaluation #1: 02/12/17 17:00 sbp 110 after 250 Ml NS KCL 40meq po ordered - Consultations Consultation #1: 02/12/17 16:59 dr glez consulted (nephrology) will evaluate during admission ED Medical Decision Making - Lab Data Result diagrams: 02/12/17 14:50 02/12/17 14:50 Lab Results 02/12/17 02/12/17 02/12/17 Range/Units 14:50 14:50 14:50 WBC 7.1 (4.5-11.0) K/mm3 RBC 3.83 (3.65-5.03) M/mm3 Hgb 11.1 (10.1-14.3) gm/dl Hct 34.7 (30.3-42.9) % MCV 91 (79-97) fl MCH 29 (28-32) pg MCHC 32 (30-34) % RDW 17.2 H (13.2-15.2) % Plt Count 64 L (140-440) K/mm3 Add Manual Diff Complete Total Counted 100 Seg Neuts % (Manual) 79.0 H (40.0-70.0) % Band Neutrophils % 0 % Lymphocytes % (Manual) 18.0 (13.4-35.0) % Reactive Lymphs % (Man) 0 % Monocytes % (Manual) 2.0 (0.0-7.3) % Eosinophils % (Manual) 1.0 (0.0-4.3) % Basophils % (Manual) 0 (0.0-1.8) % Metamyelocytes % 0 % Myelocytes % 0 % Promyelocytes % 0 % Blast Cells % 0 % Nucleated RBC % Not Reportable Seg Neutrophils # Man 5.6 (1.8-7.7) K/mm3 Band Neutrophils # 0.0 K/mm3 Lymphocytes # (Manual) 1.3 (1.2-5.4) K/mm3 Abs React Lymphs (Man) 0.0 K/mm3 Monocytes # (Manual) 0.1 (0.0-0.8) K/mm3 Eosinophils # (Manual) 0.1 (0.0-0.4) K/mm3 Basophils # (Manual) 0.0 (0.0-0.1) K/mm3 Metamyelocytes # 0.0 K/mm3 Myelocytes # 0.0 K/mm3 Promyelocytes # 0.0 K/mm3 Blast Cells # 0.0 K/mm3 WBC Morphology Not Reportable Hypersegmented Neuts Not Reportable Hyposegmented Neuts Not Reportable Hypogranular Neuts Not Reportable Smudge Cells Not Reportable Toxic Granulation Not Reportable Toxic Vacuolation Not Reportable Dohle Bodies Not Reportable Pelger-Huet Anomaly Not Reportable [place] Rods Not Reportable Platelet Estimate Appears decreased Clumped Platelets Not Reportable Plt Clumps, EDTA Not Reportable Large Platelets Not Reportable Giant Platelets Not Reportable Platelet Satelliting Not Reportable Plt Morphology Comment Not Reportable RBC Morphology Not Reportable Dimorphic RBCs Not Reportable Polychromasia Not Reportable Hypochromasia Not Reportable Poikilocytosis Not Reportable Anisocytosis 1+ Microcytosis Not Reportable Macrocytosis Not Reportable Spherocytes Not Reportable Pappenheimer Bodies Not Reportable Sickle Cells Not Reportable Target Cells Not Reportable Tear Drop Cells Not Reportable Ovalocytes Rare Helmet Cells Not Reportable Sorto-Umbarger Bodies Not Reportable [place] Rings Not Reportable [place]lin Cells Not Reportable Bite Cells Not Reportable Crenated Cell Not Reportable Elliptocytes Not Reportable Acanthocytes (Spur) Not Reportable Rouleaux Not Reportable Hemoglobin C Crystals Not Reportable Schistocytes Not Reportable Malaria parasites Not Reportable Ovidio Bodies Not Reportable Hem Pathologist Commnt No PT 16.0 H (12.2-14.9) Sec. INR 1.22 H (0.87-1.13) APTT 34.5 (24.2-36.6) Sec. Sodium 139 (137-145) mmol/L Potassium 2.1 L* (3.6-5.0) mmol/L Chloride 98.0 (98-107) mmol/L Carbon Dioxide 27 (22-30) mmol/L Anion Gap 16 mmol/L BUN 12 (7-17) mg/dL Creatinine 4.8 H (0.7-1.2) mg/dL Estimated GFR 11 ml/min BUN/Creatinine Ratio 3 % Glucose 63 L (65-100) mg/dL Calcium 9.1 (8.4-10.2) mg/dL Magnesium (1.7-2.3) mg/dL Total Bilirubin (0.1-1.2) mg/dL Direct Bilirubin (0-0.2) mg/dL Indirect Bilirubin mg/dL AST (5-40) units/L ALT (7-56) units/L Alkaline Phosphatase (35-129) units/L Total Protein (6.3-8.2) g/dL Albumin (3.9-5) g/dL Albumin/Globulin Ratio % 02/12/17 02/12/17 Range/Units 14:50 14:57 WBC (4.5-11.0) K/mm3 RBC (3.65-5.03) M/mm3 Hgb (10.1-14.3) gm/dl Hct (30.3-42.9) % MCV (79-97) fl MCH (28-32) pg MCHC (30-34) % RDW (13.2-15.2) % Plt Count (140-440) K/mm3 Add Manual Diff Total Counted Seg Neuts % (Manual) (40.0-70.0) % Band Neutrophils % % Lymphocytes % (Manual) (13.4-35.0) % Reactive Lymphs % (Man) % Monocytes % (Manual) (0.0-7.3) % Eosinophils % (Manual) (0.0-4.3) % Basophils % (Manual) (0.0-1.8) % Metamyelocytes % % Myelocytes % % Promyelocytes % % Blast Cells % % Nucleated RBC % Seg Neutrophils # Man (1.8-7.7) K/mm3 Band Neutrophils # K/mm3 Lymphocytes # (Manual) (1.2-5.4) K/mm3 Abs React Lymphs (Man) K/mm3 Monocytes # (Manual) (0.0-0.8) K/mm3 Eosinophils # (Manual) (0.0-0.4) K/mm3 Basophils # (Manual) (0.0-0.1) K/mm3 Metamyelocytes # K/mm3 Myelocytes # K/mm3 Promyelocytes # K/mm3 Blast Cells # K/mm3 WBC Morphology Hypersegmented Neuts Hyposegmented Neuts Hypogranular Neuts Smudge Cells Toxic Granulation Toxic Vacuolation Dohle Bodies Pelger-Huet Anomaly [place] Rods Platelet Estimate Clumped Platelets Plt Clumps, EDTA Large Platelets Giant Platelets Platelet Satelliting Plt Morphology Comment RBC Morphology Dimorphic RBCs Polychromasia Hypochromasia Poikilocytosis Anisocytosis Microcytosis Macrocytosis Spherocytes Pappenheimer Bodies Sickle Cells Target Cells Tear Drop Cells Ovalocytes Helmet Cells Sorto-Umbarger Bodies [place] Rings [place] Cells Bite Cells Crenated Cell Elliptocytes Acanthocytes (Spur) Rouleaux Hemoglobin C Crystals Schistocytes Malaria parasites Ovidio Bodies Hem Pathologist Commnt PT (12.2-14.9) Sec. INR (0.87-1.13) APTT (24.2-36.6) Sec. Sodium (137-145) mmol/L Potassium (3.6-5.0) mmol/L Chloride (98-107) mmol/L Carbon Dioxide (22-30) mmol/L Anion Gap mmol/L BUN (7-17) mg/dL Creatinine (0.7-1.2) mg/dL Estimated GFR ml/min BUN/Creatinine Ratio % Glucose (65-100) mg/dL Calcium (8.4-10.2) mg/dL Magnesium 1.80 (1.7-2.3) mg/dL Total Bilirubin 0.20 (0.1-1.2) mg/dL Direct Bilirubin < 0.2 (0-0.2) mg/dL Indirect Bilirubin 0.0 mg/dL AST 20 (5-40) units/L ALT 9 (7-56) units/L Alkaline Phosphatase 57 (35-129) units/L Total Protein 5.0 L (6.3-8.2) g/dL Albumin 2.8 L (3.9-5) g/dL Albumin/Globulin Ratio 1.3 % - Medical Decision Making Plan to admit patient to the hospitalist service for further hydration secondary to acute diarrhea. Patient also needs supplementation of potassium. Cinder Pitman has been consultation to manage dialysis. UA collection pending at dispo more stool needed for c diff studies - Differential Diagnosis enteritis, diarrhea, sepsis, gastroenteritis Critical Care Time: No Critical care attestation.: If time is entered above; I have spent that time in minutes in the direct care of this critically ill patient, excluding procedure time. ED Disposition Clinical Impression: Hypokalemia, Acute diarrhea, Dehydration, Hypotension, ESRD (end stage renal disease) on dialysis, Multiple myeloma, Thrombocytopenia Disposition: OP ADMIT IP TO THIS HOSP Is pt being admited?: Yes Condition: Stable Time of Disposition: 16:59 (Dr yates/hosp)
[2017-02-12 15:43] LABS: Calcium 9.1 mg/dL (8.4-10.2)
[2017-02-12 15:46] LABS: Potassium 2.1 mmol/L (3.6-5.0)
[2017-02-12 15:58] LABS: Alanine Aminotransferase 9 units/L (7-56); Albumin 2.8 g/dL (3.9-5); Albumin/Globulin Ratio 1.3 %; Alkaline Phosphatase 57 units/L (35-129)
[2017-02-12 16:12] LABS: Bilirubin,Direct < 0.2 mg/dL (0-0.2)
[2017-02-12 16:23] LABS: Platelet Count 64 K/mm3 (140-440)
[2017-02-12 16:26] LABS: Basophils % (Manual) 0 % (0.0-1.8); Blastocytes % (Manual) 0 %; Platelet Estimate Appears Decreased
[2017-02-12] MEDS ORDERED: K-DUR PO ONE (16:26)
[2017-02-12 16:27] LABS: Anisocytosis 1+; Diff Status Complete; Ovalocytes Rare
--- NOTE | 2017-02-12 17:51 | History and Physical Report ---
History of Present Illness History of present illness: 66 YO Female with MM, ESRD on HD(M,W,F), OA, HTN, Anemia presents to ED for evaluation. PT states that she has experienced 66-year-old female with a past medical history of multiple myeloma, end-stage disease on hemodialysis Wednesday, Wednesday, Wednesday, arthritis, and hypertension presents to the hospital with complaints of diarrhea 3 days. Decreased by mouth intake reported. Patient denies any pain, melena, hematochezia, fever, recent travel, recent antibiotic use, or sick contacts. Patient presents with low blood pressure with typical BP systolic in the 140s. Patient did take her BP medications today prior to arrival. She is due for dialysis today. No shortness of breath reported Hx Hypertension: Yes Hx Renal Disease: Yes (HD MWF) Hx Arthritis: Yes Additional medical history: Multiple Myeloma. Anemia, arthritis - Surgical History Hx Cholecystectomy: Yes Additional Surgical History: VAS cath to right chest - Social History Smoking Status: Never Smoker Substance Use Type: None 65-year-old man with a history of hypertension, chronic kidney disease came to the emergency room with complaints of decreased oral intake over the last one and a half weeks and generalized weakness, her symptoms worsen such came to the emergency room for evaluation. Patient continues to lose weight, status post recent bone marrow biopsy, results are pending. Complaining of pain in the left side of the back, dull, intermittent in nature, unable to say how long it last for, intensity 5/10, no radiation and she cannot identify exacerbating or relieving factor Patient denies chest pain, palpitation, shortness of breath, cough, abdominal pain, hematochezia, dysuria, frequency, focal weakness, dysarthria, fever chills , polydipsia polyuria, hot or cold intolerance, easy bruisability, or rash or bleeding from mucosal membrane, rhinorrhea, epistaxis, earache, tinnitus, blurry vision, eye discharge, anxiety, depression. Other review of systems negative Past History Past Surgical History: cholecystectomy, Other (VAs cath) Family history: cancer Medications and Allergies Allergies Allergy/AdvReac Type Severity Reaction Status Date / Time No Known Allergies Allergy Verified 10/19/16 15:54 Home Medications Medication Instructions Recorded Confirmed Last Taken Type Carvedilol [Coreg] 25 mg PO BID 10/19/16 02/12/17 02/11/17 History Omeprazole 40 mg PO DAILY #30 capsule. 10/23/16 02/12/17 02/11/17 Rx B Complex 11/Folic/C/Biot/Zinc 1 each PO DAILY 11/26/16 02/12/17 11/25/16 History [Dialyvite with Zinc Tablet] Verapamil ER [Calan Sr] 180 mg PO DAILY 11/26/16 02/12/17 02/12/17 History ALPRAZolam [Xanax TAB] 0.5 mg PO BID PRN 02/12/17 02/12/17 Unknown History HYDROmorphone [Dilaudid] 2 mg PO Q4HR PRN 02/12/17 02/12/17 Unknown History Methadone [Dolophine] 5 mg PO Q12H 02/12/17 02/12/17 Unknown History Mirtazapine [Remeron] 15 mg PO DAILY 02/12/17 02/12/17 Unknown History Ondansetron [Zofran Odt] 4 mg PO Q8H PRN 02/12/17 02/12/17 Unknown History Exam - Constitutional Vitals: Temp Pulse Resp BP Pulse Ox 98.0 F 67 14 80/53 98 02/12/17 14:18 02/12/17 14:18 02/12/17 14:18 02/12/17 14:18 02/12/17 14:18 Results - Labs CBC & Chem 7: 02/12/17 14:50 02/12/17 14:50 Labs: Abnormal lab results 02/12/17 02/12/17 02/12/17 Range/Units 14:50 14:50 14:50 RDW 17.2 H (13.2-15.2) % Plt Count 64 L (140-440) K/mm3 Seg Neuts % (Manual) 79.0 H (40.0-70.0) % PT 16.0 H (12.2-14.9) Sec. INR 1.22 H (0.87-1.13) Potassium 2.1 L* (3.6-5.0) mmol/L Creatinine 4.8 H (0.7-1.2) mg/dL Glucose 63 L (65-100) mg/dL Total Protein (6.3-8.2) g/dL Albumin (3.9-5) g/dL 02/12/17 Range/Units 14:57 RDW (13.2-15.2) % Plt Count (140-440) K/mm3 Seg Neuts % (Manual) (40.0-70.0) % PT (12.2-14.9) Sec. INR (0.87-1.13) Potassium (3.6-5.0) mmol/L Creatinine (0.7-1.2) mg/dL Glucose (65-100) mg/dL Total Protein 5.0 L (6.3-8.2) g/dL Albumin 2.8 L (3.9-5) g/dL Assessment and Plan - Patient Problems (1) Gastroenteritis Current Visit: Yes Status: Acute Plan to address problem: Gentle IVF replacement, diet as tolerated, treat uremia secondary to ESRD. anti emetic therapy, monitor uop q shift, (2) ESRD (end stage renal disease) on dialysis Current Visit: Yes Status: Acute Plan to address problem: Nephrology consulted in ED for dialysis, dialysis as per renal team (3) Multiple myeloma Current Visit: Yes Status: Acute Qualifiers: Multiple myeloma remission status: M Plan to address problem: Continue current care, pain control. outpatient oncology F/U (4) Thrombocytopenia Current Visit: Yes Status: Acute Plan to address problem: Secondary to MM, No active bleeding at this time, no platelet transfusion at this time, serial cbc. (5) DVT prophylaxis Current Visit: Yes Status: Acute
[2017-02-12] MEDS ORDERED: TYLENOL PO PRN (17:57)
[2017-02-12] MEDS ORDERED: PROVENTIL IH PRN (17:57)
[2017-02-12] MEDS ORDERED: ZOFRAN IV PRN (17:57)
[2017-02-12] MEDS ORDERED: NORCO 5/325 PO PRN (17:59)
[2017-02-12] MEDS ORDERED: ZOFRAN PO PRN (17:59)
[2017-02-13 08:10] LABS: Chloride 100.1 mmol/L (98-107)
[2017-02-13 08:12] LABS: Potassium 2.6 mmol/L (3.6-5.0)
[2017-02-13] MEDS: PROTONIX PO SCH ×2 (08:39→10:04)
[2017-02-13] MEDS: K-DUR PO SCH ×2 (08:39→14:21)
[2017-02-13] MEDS ORDERED: NON-FORMULARY (Omeprazole [Omeprazole] 40 MG) PO SCH (10:00)
--- NOTE | 2017-02-13 10:50 | Consultation ---
History of Present Illness - Reason for Consult Consult date: 02/13/17 - History of Present Illness consult dictated Past History Past Surgical History: cholecystectomy, Other (VAs cath) Family history: cancer Medications and Allergies Allergies Allergy/AdvReac Type Severity Reaction Status Date / Time No Known Allergies Allergy Verified 10/19/16 15:54 Home Medications Medication Instructions Recorded Confirmed Last Taken Type Carvedilol [Coreg] 25 mg PO BID 10/19/16 02/12/17 02/11/17 History Omeprazole 40 mg PO DAILY #30 capsule. 10/23/16 02/12/17 02/11/17 Rx B Complex 11/Folic/C/Biot/Zinc 1 each PO DAILY 11/26/16 02/12/17 11/25/16 History [Dialyvite with Zinc Tablet] Verapamil ER [Calan Sr] 180 mg PO DAILY 11/26/16 02/12/17 02/12/17 History ALPRAZolam [Xanax TAB] 0.5 mg PO BID PRN 02/12/17 02/12/17 Unknown History HYDROmorphone [Dilaudid] 2 mg PO Q4HR PRN 02/12/17 02/12/17 Unknown History Methadone [Dolophine] 5 mg PO Q12H 02/12/17 02/12/17 Unknown History Mirtazapine [Remeron] 15 mg PO DAILY 02/12/17 02/12/17 Unknown History Ondansetron [Zofran Odt] 4 mg PO Q8H PRN 02/12/17 02/12/17 Unknown History Active Meds: Active Medications Acetaminophen (Tylenol) 650 mg PO Q4H PRN PRN Reason: Pain MILD(1-3)/Fever >100.5/HENRY Acetaminophen/Hydrocodone Bitart ([place] 5/325) 1 each PO Q6HR PRN PRN Reason: Pain Albuterol (Proventil) 2.5 mg IH Q4HRT PRN PRN Reason: Shortness Of Breath Ondansetron HCl (Zofran) 4 mg IV Q8H PRN PRN Reason: N/V unrelieved by Regteodoro Ondansetron HCl (Zofran) 4 mg PO Q8HR PRN PRN Reason: Nausea Pantoprazole Sodium (Protonix) 40 mg PO DAILY ANN Last Admin: 02/13/17 10:04 Dose: Not Given Potassium Chloride (K-Dur) 40 meq PO Q4H ANN Stop: 02/13/17 13:01 Last Admin: 02/13/17 08:39 Dose: 40 meq Exam - Constitutional Vitals: Temp Pulse Resp BP Pulse Ox 99.3 F 78 18 148/86 98 02/13/17 07:49 02/13/17 07:49 02/13/17 07:49 02/13/17 07:49 02/13/17 07:49 Results - Labs CBC & Chem 7: 02/12/17 14:50 02/13/17 07:43 Labs: Abnormal lab results 02/13/17 Range/Units 07:43 Potassium 2.6 L* D (3.6-5.0) mmol/L Creatinine 5.9 H (0.7-1.2) mg/dL
--- NOTE | 2017-02-13 11:45 | Progress Note ---
Assessment and Plan Assessment and plan: Diarrhea, severe. Etiology unclear. Ordered stool WBC, c diff, stool culture. May consider iv fluids ESRD on hemodialysis. Follows with Nephrology Hypokalemia. Give k-dur po. Discussed with Multiple myeloma. Had recent chemo. Details unclear. She sees Dr. NARVAEZ Thrombocytopenia. DVT prophylaxis. SCDs only because of thromboctyopenia. Full code status History Interval history: Severe diarrhea, Lower abdominal pain Hospitalist Physical - Physical exam Narrative exam: Gen Appearance: Not in acute distress, HEENT: normocephalic, atraumatic Neck: supple, no JVD Lungs: Clear to auscultation bilaterally, no rales, no wheezing, Heart: S1 and S2 regular, no murmurs,no rubs or gallop, Abdomen: Soft , non tender, non distended, normal bowel sounds Extremity: No edema, no clubbing or cyanosis, Neuro : Awake,alert, oriented x 3, normal speech, moves all extremities Psych:Normal mood - Constitutional Vitals: Temp Pulse Resp BP Pulse Ox 99.3 F 78 18 148/86 98 02/13/17 07:49 02/13/17 07:49 02/13/17 07:49 02/13/17 07:49 02/13/17 07:49 Results - Labs CBC & Chem 7: 02/12/17 14:50 02/13/17 12:44 Labs: Laboratory Last Values WBC 7.1 K/mm3 (4.5-11.0) 02/12/17 14:50 RBC 3.83 M/mm3 (3.65-5.03) 02/12/17 14:50 Hgb 11.1 gm/dl (10.1-14.3) 02/12/17 14:50 Hct 34.7 % (30.3-42.9) 02/12/17 14:50 MCV 91 fl (79-97) 02/12/17 14:50 MCH 29 pg (28-32) 02/12/17 14:50 MCHC 32 % (30-34) 02/12/17 14:50 RDW 17.2 % (13.2-15.2) H 02/12/17 14:50 Plt Count 64 K/mm3 (140-440) L 02/12/17 14:50 Add Manual Diff Complete 02/12/17 14:50 Total Counted 100 11/10/17 14:50 Seg Neuts % (Manual) 79.0 % (40.0-70.0) H 02/12/17 14:50 Band Neutrophils % 0 % 02/12/17 14:50 Lymphocytes % (Manual) 18.0 % (13.4-35.0) 02/12/17 14:50 Reactive Lymphs % (Man) 0 % 02/12/17 14:50 Monocytes % (Manual) 2.0 % (0.0-7.3) 02/12/17 14:50 Eosinophils % (Manual) 1.0 % (0.0-4.3) 02/12/17 14:50 Basophils % (Manual) 0 % (0.0-1.8) 02/12/17 14:50 Metamyelocytes % 0 % 02/12/17 14:50 Myelocytes % 0 % 02/12/17 14:50 Promyelocytes % 0 % 02/12/17 14:50 Blast Cells % 0 % 02/12/17 14:50 Nucleated RBC % Not Reportable 02/12/17 14:50 Seg Neutrophils # Man 5.6 K/mm3 (1.8-7.7) 02/12/17 14:50 Band Neutrophils # 0.0 K/mm3 02/12/17 14:50 Lymphocytes # (Manual) 1.3 K/mm3 (1.2-5.4) 02/12/17 14:50 Abs React Lymphs (Man) 0.0 K/mm3 02/12/17 14:50 Monocytes # (Manual) 0.1 K/mm3 (0.0-0.8) 02/12/17 14:50 Eosinophils # (Manual) 0.1 K/mm3 (0.0-0.4) 02/12/17 14:50 Basophils # (Manual) 0.0 K/mm3 (0.0-0.1) 02/12/17 14:50 Metamyelocytes # 0.0 K/mm3 02/12/17 14:50 Myelocytes # 0.0 K/mm3 02/12/17 14:50 Promyelocytes # 0.0 K/mm3 02/12/17 14:50 Blast Cells # 0.0 K/mm3 02/12/17 14:50 WBC Morphology Not Reportable 02/12/17 14:50 Hypersegmented Neuts Not Reportable 02/12/17 14:50 Hyposegmented Neuts Not Reportable 02/12/17 14:50 Hypogranular Neuts Not Reportable 02/12/17 14:50 Smudge Cells Not Reportable 02/12/17 14:50 Toxic Granulation Not Reportable 02/12/17 14:50 Toxic Vacuolation Not Reportable 02/12/17 14:50 Dohle Bodies Not Reportable 02/12/17 14:50 Pelger-Huet Anomaly Not Reportable 02/12/17 14:50 [place] Rods Not Reportable 02/12/17 14:50 Platelet Estimate Appears decreased 02/12/17 14:50 Clumped Platelets Not Reportable 02/12/17 14:50 Plt Clumps, EDTA Not Reportable 02/12/17 14:50 Large Platelets Not Reportable 02/12/17 14:50 Giant Platelets Not Reportable 02/12/17 14:50 Platelet Satelliting Not Reportable 02/12/17 14:50 Plt Morphology Comment Not Reportable 02/12/17 14:50 RBC Morphology Not Reportable 02/12/17 14:50 Dimorphic RBCs Not Reportable 02/12/17 14:50 Polychromasia Not Reportable 02/12/17 14:50 Hypochromasia Not Reportable 02/12/17 14:50 Poikilocytosis Not Reportable 02/12/17 14:50 Anisocytosis 1+ 02/12/17 14:50 Microcytosis Not Reportable 02/12/17 14:50 Macrocytosis Not Reportable 02/12/17 14:50 Spherocytes Not Reportable 02/12/17 14:50 Pappenheimer Bodies Not Reportable 02/12/17 14:50 Sickle Cells Not Reportable 02/12/17 14:50 Target Cells Not Reportable 02/12/17 14:50 Tear Drop Cells Not Reportable 02/12/17 14:50 Ovalocytes Rare 02/12/17 14:50 Helmet Cells Not Reportable 02/12/17 14:50 Sorto-Kasson Bodies Not Reportable 02/12/17 14:50 [place] Rings Not Reportable 02/12/17 14:50 [place] Cells Not Reportable 02/12/17 14:50 Bite Cells Not Reportable 02/12/17 14:50 Crenated Cell Not Reportable 02/12/17 14:50 Elliptocytes Not Reportable 02/12/17 14:50 Acanthocytes (Spur) Not Reportable 02/12/17 14:50 Rouleaux Not Reportable 02/12/17 14:50 Hemoglobin C Crystals Not Reportable 02/12/17 14:50 Schistocytes Not Reportable 02/12/17 14:50 Malaria parasites Not Reportable 02/12/17 14:50 Ovidio Bodies Not Reportable 02/12/17 14:50 Hem Pathologist Commnt No 02/12/17 14:50 PT 16.0 Sec. (12.2-14.9) H 02/12/17 14:50 INR 1.22 (0.87-1.13) H 02/12/17 14:50 APTT 34.5 Sec. (24.2-36.6) 02/12/17 14:50 Sodium 140 mmol/L (137-145) 02/13/17 07:43 Potassium 2.6 mmol/L (3.6-5.0) L* D 02/13/17 07:43 Chloride 100.1 mmol/L (98-107) 02/13/17 07:43 Carbon Dioxide 24 mmol/L (22-30) 02/13/17 07:43 Anion Gap 19 mmol/L 02/13/17 07:43 BUN 16 mg/dL (7-17) 02/13/17 07:43 Creatinine 5.9 mg/dL (0.7-1.2) H 02/13/17 07:43 Estimated GFR 9 ml/min 02/13/17 07:43 BUN/Creatinine Ratio 3 % 02/13/17 07:43 Glucose 98 mg/dL (65-100) 02/13/17 07:43 Calcium 9.0 mg/dL (8.4-10.2) 02/13/17 07:43 Magnesium 1.80 mg/dL (1.7-2.3) 02/12/17 14:50 Total Bilirubin 0.20 mg/dL (0.1-1.2) 02/12/17 14:57 Direct Bilirubin < 0.2 mg/dL (0-0.2) 02/12/17 14:57 Indirect Bilirubin 0.0 mg/dL 02/12/17 14:57 AST 20 units/L (5-40) 02/12/17 14:57 ALT 9 units/L (7-56) 02/12/17 14:57 Alkaline Phosphatase 57 units/L (35-129) 02/12/17 14:57 Total Protein 5.0 g/dL (6.3-8.2) L 02/12/17 14:57 Albumin 2.8 g/dL (3.9-5) L 02/12/17 14:57 Albumin/Globulin Ratio 1.3 % 02/12/17 14:57
[2017-02-13 12:05] LABS: Bilirubin,Urine Negative (Negative); Ketones,Urine Negative (Negative)
[2017-02-13 12:06] LABS: Blood,Urine Negative (Negative); Urobilinogen,Urine < 2.0 mg/dL (<2.0)
[2017-02-13 12:07] LABS: Nitrite,Urine Negative (Negative)
[2017-02-13 12:10] LABS: Leukocyte Esterase,Urine Negative (Negative)
[2017-02-13 12:13] LABS: Mucus,Urine FEW /HPF
[2017-02-13] MEDS ORDERED: KCL 10MEQ/100ML 10 MEQ/100 ML BAG IV ONE (12:39)
[2017-02-13] MEDS ORDERED: D5W/0.45% NACL/KCL 20 MEQ 20 MEQ/1,000 ML BAG IV SCH (13:00)
[2017-02-13 13:19] LABS: Calcium 9.3 mg/dL (8.4-10.2); Chloride 100.4 mmol/L (98-107)
[2017-02-13 13:20] LABS: Phosphorous 2.3 mg/dL (2.5-4.5)
--- NOTE | 2017-02-14 07:45 | Consultation ---
REASON FOR CONSULTATION: Renal failure and hypokalemia. HISTORY OF PRESENT ILLNESS: This is a 66-year-old female with a history of multiple myeloma, end-stage renal disease who was brought to the Emergency Room for having diarrhea for the past 2-3 days after. The patient goes to [facility] on Wednesday, Wednesday, and Wednesday. On Tuesdays and gets cancer treatment for multiple myeloma by In the ER, the patient was reported to have a potassium level of 2.1. The patient is getting a potassium supplement. The patient did not get her dialysis yesterday as she was having diarrhea and she was brought to the Emergency Room. PAST MEDICAL HISTORY: Hypertension, multiple myeloma, end-stage renal disease, arthritis, status post cholecystectomy. PERSONAL HISTORY: Denies smoking, alcohol, or drug abuse. FAMILY HISTORY: No family history of kidney failure. ALLERGIES: None. CURRENT MEDICATIONS: Pantoprazole 40 mg once a day. REVIEW OF SYSTEMS: Complains of generalized weakness, appetite poor, having, diarrhea, has been losing weight, recently had bone marrow biopsy. Denies blood in the stool. Denies nausea or vomiting. Denies fever or chills. Other review of systems reviewed and negative. PHYSICAL EXAMINATION: GENERAL: The patient is alert, oriented, not in acute distress. VITAL SIGNS: Blood pressure 144/85, pulse 78, afebrile. HEENT: Head is normocephalic. Eyes: Pupils reactive. Conjunctivae pink. Oral mucosa, tongue and lips are dry. NECK: No JVD. No thyroid enlargement. LUNGS: Diminished breath sounds in bases. HEART: S1, S2 regular. A 2/6 systolic murmur along the left sternal border. ABDOMEN: Soft. Bowel sounds present. Nontender. EXTREMITIES: No masses palpable. EXTREMITIES: 1+ edema. Right internal jugular Perm-A-Cath in place. LABORATORY DATA: WBC 7.1, hemoglobin 11.1, hematocrit 34.7, platelets 64,000. Sodium 139, potassium 2.1, chloride 98, CO2 of 27, BUN was 12, creatinine 4.8, glucose 63, albumin 2.8. Urinalysis: Protein 100, urine wbc's 7, urine leukocyte esterase negative. ASSESSMENT AND PLAN: 1. Severe hypokalemia. 2. Diarrhea/gastroenteritis. 3. Multiple myeloma. 4. Thrombocytopenia. 5. Hypoglycemia. 6. Hypoalbuminemia. 7. Proteinuria. Check magnesium and phosphorus levels. IV fluids with the potassium as ordered. Hold off on dialysis for 24-48 hours until the potassium is repleted. Adjust medications per renal function. Thank you for the consultation. JOB# [id number] Joseph/NTS
[2017-02-14 08:21] LABS: Calcium 9.9 mg/dL (8.4-10.2); Chloride 104.2 mmol/L (98-107); Potassium 3.5 mmol/L (3.6-5.0)
[2017-02-14] MEDS ORDERED: ZOFRAN ODT PO PRN (09:15)
[2017-02-14] MEDS: REMERON PO SCH (10:54)
[2017-02-14] MEDS: DOLOPHINE PO SCH ×2 (10:54→22:16)
[2017-02-14] MEDS: PROTONIX PO SCH (10:55)
[2017-02-14] MEDS: XANAX PO PRN (10:55)
[2017-02-14] MEDS: COREG PO SCH ×2 (10:55→22:10)
--- NOTE | 2017-02-14 11:35 | Progress Note ---
Assessment and Plan Assessment and plan: Diarrhea, severe. may be due to recent chemo. Ordered stool WBC, c diff, stool culture. Continue iv fluids as per Nephrology. ESRD on hemodialysis. Nephrology following Dehydration due to diarrhea Acute gastroenteritis with diarrhea, likely from chemotherapy. Hypokalemia. Gave k-dur, now on Potassium containing iv fluids.. This is improving, potassium 3.5 today, was 2.1 on admission Multiple myeloma. Had recent chemo, on 02/11/[address] NARVAEZ, Oncologist Thrombocytopenia. Follow with Dr. NARVAEZ as outpatiemnt. DVT prophylaxis. SCDs only because of thromboctyopenia. Full code status Discussed with patient and daughter at bedside. Likely d/c home tomorrow. 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 Hospitalist Physical - Physical exam Narrative exam: Gen Appearance: Not in acute distress, HEENT: normocephalic, atraumatic Neck: supple, no JVD Lungs: Clear to auscultation bilaterally, no rales, no wheezing, Heart: S1 and S2 regular, no murmurs,no rubs or gallop, Abdomen: Soft , non tender, non distended, normal bowel sounds Extremity: No edema, no clubbing or cyanosis, Neuro : Awake,alert, oriented x 3, normal speech, moves all extremities - Constitutional Vitals: Temp Pulse Resp BP Pulse Ox 98.7 F 88 16 138/98 97 02/14/17 07:08 02/14/17 10:55 02/14/17 07:08 02/14/17 10:55 02/14/17 07:08 Results - Labs CBC & Chem 7: 02/12/17 14:50 02/14/17 07:25 Labs: Laboratory Last Values WBC 7.1 K/mm3 (4.5-11.0) 02/12/17 14:50 RBC 3.83 M/mm3 (3.65-5.03) 02/12/17 14:50 Hgb 11.1 gm/dl (10.1-14.3) 02/12/17 14:50 Hct 34.7 % (30.3-42.9) 02/12/17 14:50 MCV 91 fl (79-97) 02/12/17 14:50 MCH 29 pg (28-32) 02/12/17 14:50 MCHC 32 % (30-34) 02/12/17 14:50 RDW 17.2 % (13.2-15.2) H 02/12/17 14:50 Plt Count 64 K/mm3 (140-440) L 02/12/17 14:50 Add Manual Diff Complete 02/12/17 14:50 Total Counted 100 02/12/17 14:50 Seg Neuts % (Manual) 79.0 % (40.0-70.0) H 02/12/17 14:50 Band Neutrophils % 0 % 02/12/17 14:50 Lymphocytes % (Manual) 18.0 % (13.4-35.0) 02/12/17 14:50 Reactive Lymphs % (Man) 0 % 02/12/17 14:50 Monocytes % (Manual) 2.0 % (0.0-7.3) 02/12/17 14:50 Eosinophils % (Manual) 1.0 % (0.0-4.3) 02/12/17 14:50 Basophils % (Manual) 0 % (0.0-1.8) 02/12/17 14:50 Metamyelocytes % 0 % 02/12/17 14:50 Myelocytes % 0 % 02/12/17 14:50 Promyelocytes % 0 % 02/12/17 14:50 Blast Cells % 0 % 02/12/17 14:50 Nucleated RBC % Not Reportable 02/12/17 14:50 Seg Neutrophils # Man 5.6 K/mm3 (1.8-7.7) 02/12/17 14:50 Band Neutrophils # 0.0 K/mm3 02/12/17 14:50 Lymphocytes # (Manual) 1.3 K/mm3 (1.2-5.4) 02/12/17 14:50 Abs React Lymphs (Man) 0.0 K/mm3 02/12/17 14:50 Monocytes # (Manual) 0.1 K/mm3 (0.0-0.8) 02/12/17 14:50 Eosinophils # (Manual) 0.1 K/mm3 (0.0-0.4) 02/12/17 14:50 Basophils # (Manual) 0.0 K/mm3 (0.0-0.1) 02/12/17 14:50 Metamyelocytes # 0.0 K/mm3 02/12/17 14:50 Myelocytes # 0.0 K/mm3 02/12/17 14:50 Promyelocytes # 0.0 K/mm3 02/12/17 14:50 Blast Cells # 0.0 K/mm3 02/12/17 14:50 WBC Morphology Not Reportable 02/12/17 14:50 Hypersegmented Neuts Not Reportable 02/12/17 14:50 Hyposegmented Neuts Not Reportable 02/12/17 14:50 Hypogranular Neuts Not Reportable 02/12/17 14:50 Smudge Cells Not Reportable 02/12/17 14:50 Toxic Granulation Not Reportable 02/12/17 14:50 Toxic Vacuolation Not Reportable 02/12/17 14:50 Dohle Bodies Not Reportable 02/12/17 14:50 Pelger-Huet Anomaly Not Reportable 02/12/17 14:50 [place] Rods Not Reportable 02/12/17 14:50 Platelet Estimate Appears decreased 02/12/17 14:50 Clumped Platelets Not Reportable 02/12/17 14:50 Plt Clumps, EDTA Not Reportable 02/12/17 14:50 Large Platelets Not Reportable 02/12/17 14:50 Giant Platelets Not Reportable 02/12/17 14:50 Platelet Satelliting Not Reportable 02/12/17 14:50 Plt Morphology Comment Not Reportable 02/12/17 14:50 RBC Morphology Not Reportable 02/12/17 14:50 Dimorphic RBCs Not Reportable 02/12/17 14:50 Polychromasia Not Reportable 02/12/17 14:50 Hypochromasia Not Reportable 02/12/17 14:50 Poikilocytosis Not Reportable 02/12/17 14:50 Anisocytosis 1+ 02/12/17 14:50 Microcytosis Not Reportable 02/12/17 14:50 Macrocytosis Not Reportable 02/12/17 14:50 Spherocytes Not Reportable 02/12/17 14:50 Pappenheimer Bodies Not Reportable 02/12/17 14:50 Sickle Cells Not Reportable 02/12/17 14:50 Target Cells Not Reportable 02/12/17 14:50 Tear Drop Cells Not Reportable 02/12/17 14:50 Ovalocytes Rare 02/12/17 14:50 Helmet Cells Not Reportable 02/12/17 14:50 Sorto-Schuyler Bodies Not Reportable 02/12/17 14:50 [place] Rings Not Reportable 02/12/17 14:50 [place] Cells Not Reportable 02/12/17 14:50 Bite Cells Not Reportable 02/12/17 14:50 Crenated Cell Not Reportable 02/12/17 14:50 Elliptocytes Not Reportable 02/12/17 14:50 Acanthocytes (Spur) Not Reportable 02/12/17 14:50 Rouleaux Not Reportable 02/12/17 14:50 Hemoglobin C Crystals Not Reportable 02/12/17 14:50 Schistocytes Not Reportable 02/12/17 14:50 Malaria parasites Not Reportable 02/12/17 14:50 Ovidio Bodies Not Reportable 02/12/17 14:50 Hem Pathologist Commnt No 02/12/17 14:50 PT 16.0 Sec. (12.2-14.9) H 02/12/17 14:50 INR 1.22 (0.87-1.13) H 02/12/17 14:50 APTT 34.5 Sec. (24.2-36.6) 02/12/17 14:50 Sodium 141 mmol/L (137-145) 02/14/17 07:25 Potassium 3.5 mmol/L (3.6-5.0) L 02/14/17 07:25 Chloride 104.2 mmol/L (98-107) 02/14/17 07:25 Carbon Dioxide 24 mmol/L (22-30) 02/14/17 07:25 Anion Gap 16 mmol/L 02/14/17 07:25 BUN 19 mg/dL (7-17) H 02/14/17 07:25 Creatinine 7.0 mg/dL (0.7-1.2) H 02/14/17 07:25 Estimated GFR 7 ml/min 02/14/17 07:25 BUN/Creatinine Ratio 3 % 02/14/17 07:25 Glucose 121 mg/dL (65-100) H 02/14/17 07:25 Calcium 9.9 mg/dL (8.4-10.2) 02/14/17 07:25 Phosphorus 2.30 mg/dL (2.5-4.5) L 02/13/17 12:44 Magnesium 2.00 mg/dL (1.7-2.3) 02/13/17 12:44 Total Bilirubin 0.20 mg/dL (0.1-1.2) 02/12/17 14:57 Direct Bilirubin < 0.2 mg/dL (0-0.2) 02/12/17 14:57 Indirect Bilirubin 0.0 mg/dL 02/12/17 14:57 AST 20 units/L (5-40) 02/12/17 14:57 ALT 9 units/L (7-56) 02/12/17 14:57 Alkaline Phosphatase 57 units/L (35-129) 02/12/17 14:57 Total Protein 5.0 g/dL (6.3-8.2) L 02/12/17 14:57 Albumin 2.8 g/dL (3.9-5) L 02/12/17 14:57 Albumin/Globulin Ratio 1.3 % 02/12/17 14:57 Urine Color Yellow (Yellow) 02/13/17 11:30 Urine Turbidity Clear (Clear) 02/13/17 11:30 Urine pH 7.0 (5.0-7.0) 02/13/17 11:30 Ur Specific [place] 1.010 (1.003-1.030) 02/13/17 11:30 Urine Protein 100 mg/dl mg/dL (Negative) 02/13/17 11:30 Urine Glucose (UA) Negative mg/dL (Negative) 02/13/17 11:30 Urine Ketones Negative mg/dL (Negative) 02/13/17 11:30 Urine Blood Negative (Negative) 02/13/17 11:30 Urine Nitrite Negative (Negative) 02/13/17 11:30 Urine Bilirubin Negative (Negative) 02/13/17 11:30 Urine Urobilinogen < 2.0 mg/dL (<2.0) 02/13/17 11:30 Ur Leukocyte Esterase Negative (Negative) 02/13/17 11:30 Urine WBC (Auto) 7.0 /HPF (0.0-6.0) H 02/13/17 11:30 Urine RBC (Auto) 3.0 /HPF (0.0-6.0) 02/13/17 11:30 U Epithel Cells (Auto) 1.0 /HPF (0-13.0) 02/13/17 11:30 Ur Transition Epith Cell 1 /HPF 02/13/17 11:30 Urine Mucus Few /HPF 02/13/17 11:30
--- NOTE | 2017-02-14 15:50 | Progress Note ---
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 She reports no diarrhea today. Objective - Vital Signs Vital signs: Vital Signs - 12hr 02/14/17 02/14/17 02/14/17 06:20 07:08 10:55 Temperature 97.4 F L 98.7 F Pulse Rate 93 H 88 88 Respiratory 18 16 Rate Blood Pressure 151/109 138/98 138/98 O2 Sat by Pulse 98 97 Oximetry - General Appearance General appearance: well-developed, well-nourished EENT: ATNC Cardiology: regular, S1S2 Gastrointestinal: normal, no tenderness, no distended Integumentary: no rash Neurologic: no focal deficit Musculoskeletal: other (no edema) Psychiatric: cooperative - Lab 02/12/17 14:50 02/14/17 15:31 Most recent lab results Calcium 9.9 mg/dL (8.4-10.2) 02/14/17 07:25 Phosphorus 2.30 mg/dL (2.5-4.5) L 02/13/17 12:44 Magnesium 2.00 mg/dL (1.7-2.3) 02/13/17 12:44
[2017-02-14] MEDS: D5/0.45NS 1,000 ML IV SCH (18:26)
[2017-02-15 04:48] LABS: Calcium 6.8 mg/dL (8.4-10.2); Chloride 94.3 mmol/L (98-107)
[2017-02-15 05:38] LABS: Potassium 2.6 mmol/L (3.6-5.0)
[2017-02-15 08:00] LABS: Anion Gap TNR mmol/L; BUN/Creatinine Ratio TNR; Blood Urea Nitrogen TNR mg/dL (7-17); Carbon Dioxide TNR mmol/L (22-30); Chloride TNR mmol/L (98-107); Sodium TNR mmol/L (137-145)
[2017-02-15 08:01] LABS: Calcium TNR mg/dL (8.4-10.2); Glucose TNR mg/dL (65-100); Potassium TNR mmol/L (3.6-5.0)
[2017-02-15] MEDS: D5/0.45NS 1,000 ML IV SCH ×2 (08:21→22:03)
[2017-02-15 09:57] LABS: Chloride 102.3 mmol/L (98-107); Potassium 3.5 mmol/L (3.6-5.0)
[2017-02-15] MEDS: COREG PO SCH ×2 (10:15→21:59)
[2017-02-15] MEDS: DOLOPHINE PO SCH ×2 (10:20→18:07)
[2017-02-15] MEDS: Renal Caps PO SCH (10:21)
[2017-02-15] MEDS: PROTONIX PO SCH (10:21)
[2017-02-15] MEDS: REMERON PO SCH (10:21)
--- NOTE | 2017-02-15 12:47 | Discharge Summary ---
Providers - Providers Date of Admission: 02/12/17 17:57 Date of discharge: 02/15/17 Attending physician: RILEY MOODY Primary care physician: JAMAL SAMPSON MD Hospitalization Condition: Stable Disposition: DC-30 STILL A PATIENT Exam - Constitutional Vitals: Temp Pulse Resp BP Pulse Ox 97.5 F L 82 18 119/82 98 02/15/17 08:12 02/15/17 10:15 02/15/17 08:12 02/15/17 10:15 02/15/17 08:12 Plan Follow up with: JAMAL SAMPSON MD [Primary Care Provider] - 7 Days
--- NOTE | 2017-02-15 13:41 | Progress Note ---
Assessment and Plan Assessment and plan: Diarrhea, severe due to recent chemo. Ordered stool WBC, c diff, stool culture. Continue iv fluids as per Nephrology. ESRD on hemodialysis. Nephrology following. Dialysis not done on Sat because she is dehydrated. Discussed with Nephrology Dehydration due to diarrhea. Continue iv fluids Acute gastroenteritis with diarrhea, likely from chemotherapy. Hypokalemia. Gave k-dur, Potassium containing iv fluids.. This is improving, potassium 3.5 today, was 2.1 on admission. Give additional potassium chloride liquid 40 mEq by mouth 1 dose Multiple myeloma. Had recent chemo, on 02/11/[address] NARVAEZ, Oncologist Thrombocytopenia. Follow with Dr. NARVAEZ as outpatient. DVT prophylaxis. SCDs only because of thromboctyopenia. Gen weakness and dizziness. Obtain CBC, orthostatic vital signs. cancel intended discharge Full code status Addendum: CBC shows severe thrombocytopenia with platelet count of 19. No evidence of bleeding. Will consult Dr. NARVAEZ. [employer] History Interval history: patient just had chemo few days ago, Initially presented with diarrhea, now resolved Today c/o worse gen weakness Dizziness on attempting to get up No fever Hospitalist Physical - Physical exam Narrative exam: Gen Appearance: Not in acute distress, ill looking HEENT: normocephalic, atraumatic Neck: supple, no JVD Lungs: Clear to auscultation bilaterally, no rales, no wheezing, Heart: S1 and S2 regular, no murmurs,no rubs or gallop, Abdomen: Soft , non tender, non distended, normal bowel sounds Extremity: No edema, no clubbing or cyanosis, Neuro : Awake,alert, oriented x 3, normal speech, moves all extremities - Constitutional Vitals: Temp Pulse Resp BP Pulse Ox 97.5 F L 82 18 119/82 98 02/15/17 08:12 02/15/17 10:15 02/15/17 08:12 02/15/17 10:15 02/15/17 08:12 Results - Labs CBC & Chem 7: 02/16/17 05:52 02/16/17 05:52 Labs: Laboratory Last Values WBC 7.1 K/mm3 (4.5-11.0) 02/12/17 14:50 RBC 3.83 M/mm3 (3.65-5.03) 02/12/17 14:50 Hgb 11.1 gm/dl (10.1-14.3) 02/12/17 14:50 Hct 34.7 % (30.3-42.9) 02/12/17 14:50 MCV 91 fl (79-97) 02/12/17 14:50 MCH 29 pg (28-32) 02/12/17 14:50 MCHC 32 % (30-34) 02/12/17 14:50 RDW 17.2 % (13.2-15.2) H 02/12/17 14:50 Plt Count 64 K/mm3 (140-440) L 02/12/17 14:50 Add Manual Diff Complete 02/12/17 14:50 Total Counted 100 02/12/17 14:50 Seg Neuts % (Manual) 79.0 % (40.0-70.0) H 02/12/17 14:50 Band Neutrophils % 0 % 02/12/17 14:50 Lymphocytes % (Manual) 18.0 % (13.4-35.0) 02/12/17 14:50 Reactive Lymphs % (Man) 0 % 02/12/17 14:50 Monocytes % (Manual) 2.0 % (0.0-7.3) 02/12/17 14:50 Eosinophils % (Manual) 1.0 % (0.0-4.3) 02/12/17 14:50 Basophils % (Manual) 0 % (0.0-1.8) 02/12/17 14:50 Metamyelocytes % 0 % 02/12/17 14:50 Myelocytes % 0 % 02/12/17 14:50 Promyelocytes % 0 % 02/12/17 14:50 Blast Cells % 0 % 02/12/17 14:50 Nucleated RBC % Not Reportable 02/12/17 14:50 Seg Neutrophils # Man 5.6 K/mm3 (1.8-7.7) 02/12/17 14:50 Band Neutrophils # 0.0 K/mm3 02/12/17 14:50 Lymphocytes # (Manual) 1.3 K/mm3 (1.2-5.4) 02/12/17 14:50 Abs React Lymphs (Man) 0.0 K/mm3 02/12/17 14:50 Monocytes # (Manual) 0.1 K/mm3 (0.0-0.8) 02/12/17 14:50 Eosinophils # (Manual) 0.1 K/mm3 (0.0-0.4) 02/12/17 14:50 Basophils # (Manual) 0.0 K/mm3 (0.0-0.1) 02/12/17 14:50 Metamyelocytes # 0.0 K/mm3 02/12/17 14:50 Myelocytes # 0.0 K/mm3 02/12/17 14:50 Promyelocytes # 0.0 K/mm3 02/12/17 14:50 Blast Cells # 0.0 K/mm3 02/12/17 14:50 WBC Morphology Not Reportable 02/12/17 14:50 Hypersegmented Neuts Not Reportable 02/12/17 14:50 Hyposegmented Neuts Not Reportable 02/12/17 14:50 Hypogranular Neuts Not Reportable 02/12/17 14:50 Smudge Cells Not Reportable 02/12/17 14:50 Toxic Granulation Not Reportable 02/12/17 14:50 Toxic Vacuolation Not Reportable 02/12/17 14:50 Dohle Bodies Not Reportable 02/12/17 14:50 Pelger-Huet Anomaly Not Reportable 02/12/17 14:50 [place] Rods Not Reportable 02/12/17 14:50 Platelet Estimate Appears decreased 02/12/17 14:50 Clumped Platelets Not Reportable 02/12/17 14:50 Plt Clumps, EDTA Not Reportable 02/12/17 14:50 Large Platelets Not Reportable 02/12/17 14:50 Giant Platelets Not Reportable 02/12/17 14:50 Platelet Satelliting Not Reportable 02/12/17 14:50 Plt Morphology Comment Not Reportable 02/12/17 14:50 RBC Morphology Not Reportable 02/12/17 14:50 Dimorphic RBCs Not Reportable 02/12/17 14:50 Polychromasia Not Reportable 02/12/17 14:50 Hypochromasia Not Reportable 02/12/17 14:50 Poikilocytosis Not Reportable 02/12/17 14:50 Anisocytosis 1+ 02/12/17 14:50 Microcytosis Not Reportable 02/12/17 14:50 Macrocytosis Not Reportable 02/12/17 14:50 Spherocytes Not Reportable 02/12/17 14:50 Pappenheimer Bodies Not Reportable 02/12/17 14:50 Sickle Cells Not Reportable 02/12/17 14:50 Target Cells Not Reportable 02/12/17 14:50 Tear Drop Cells Not Reportable 02/12/17 14:50 Ovalocytes Rare 02/12/17 14:50 Helmet Cells Not Reportable 02/12/17 14:50 [place] Bodies Not Reportable 02/12/17 14:50 [place] Rings Not Reportable 02/12/17 14:50 [place] Cells Not Reportable 02/12/17 14:50 Bite Cells Not Reportable 02/12/17 14:50 Crenated Cell Not Reportable 02/12/17 14:50 Elliptocytes Not Reportable 02/12/17 14:50 Acanthocytes (Spur) Not Reportable 02/12/17 14:50 Rouleaux Not Reportable 02/12/17 14:50 Hemoglobin C Crystals Not Reportable 02/12/17 14:50 Schistocytes Not Reportable 02/12/17 14:50 Malaria parasites Not Reportable 02/12/17 14:50 Ovidio Bodies Not Reportable 02/12/17 14:50 Hem Pathologist Commnt No 02/12/17 14:50 PT 16.0 Sec. (12.2-14.9) H 02/12/17 14:50 INR 1.22 (0.87-1.13) H 02/12/17 14:50 APTT 34.5 Sec. (24.2-36.6) 02/12/17 14:50 Sodium 138 mmol/L (137-145) D 02/15/17 09:26 Potassium 3.5 mmol/L (3.6-5.0) L D 02/15/17 09:26 Chloride 102.3 mmol/L (98-107) 02/15/17 09:26 Carbon Dioxide 25 mmol/L (22-30) D 02/15/17 09:26 Anion Gap 14 mmol/L 02/15/17 09:26 BUN 25 mg/dL (7-17) H 02/15/17 09:26 Creatinine 7.2 mg/dL (0.7-1.2) H 02/15/17 09:26 Estimated GFR 7 ml/min 02/15/17 09:26 BUN/Creatinine Ratio 3 % 02/15/17 09:26 Glucose 131 mg/dL (65-100) H 02/15/17 09:26 Calcium 10.0 mg/dL (8.4-10.2) D 02/15/17 09:26 Phosphorus 2.30 mg/dL (2.5-4.5) L 02/13/17 12:44 Magnesium 2.00 mg/dL (1.7-2.3) 02/13/17 12:44 Total Bilirubin 0.20 mg/dL (0.1-1.2) 02/12/17 14:57 Direct Bilirubin < 0.2 mg/dL (0-0.2) 02/12/17 14:57 Indirect Bilirubin 0.0 mg/dL 02/12/17 14:57 AST 20 units/L (5-40) 02/12/17 14:57 ALT 9 units/L (7-56) 02/12/17 14:57 Alkaline Phosphatase 57 units/L (35-129) 02/12/17 14:57 Total Protein 5.0 g/dL (6.3-8.2) L 02/12/17 14:57 Albumin 2.8 g/dL (3.9-5) L 02/12/17 14:57 Albumin/Globulin Ratio 1.3 % 02/12/17 14:57 Urine Color Yellow (Yellow) 02/13/17 11:30 Urine Turbidity Clear (Clear) 02/13/17 11:30 Urine pH 7.0 (5.0-7.0) 02/13/17 11:30 Ur Specific [place] 1.010 (1.003-1.030) 02/13/17 11:30 Urine Protein 100 mg/dl mg/dL (Negative) 02/13/17 11:30 Urine Glucose (UA) Negative mg/dL (Negative) 02/13/17 11:30 Urine Ketones Negative mg/dL (Negative) 02/13/17 11:30 Urine Blood Negative (Negative) 02/13/17 11:30 Urine Nitrite Negative (Negative) 02/13/17 11:30 Urine Bilirubin Negative (Negative) 02/13/17 11:30 Urine Urobilinogen < 2.0 mg/dL (<2.0) 02/13/17 11:30 Ur Leukocyte Esterase Negative (Negative) 02/13/17 11:30 Urine WBC (Auto) 7.0 /HPF (0.0-6.0) H 02/13/17 11:30 Urine RBC (Auto) 3.0 /HPF (0.0-6.0) 02/13/17 11:30 U Epithel Cells (Auto) 1.0 /HPF (0-13.0) 02/13/17 11:30 Ur Transition Epith Cell 1 /HPF 02/13/17 11:30 Urine Mucus Few /HPF 02/13/17 11:30
[2017-02-15] MEDS ORDERED: POTASSIUM CHLORIDE PO NR (15:30)
[2017-02-15 18:15] LABS: Mean Corpuscular HGB Conc 30 % (30-34); Mean Corpuscular Hemoglobin 28 pg (28-32); Mean Corpuscular Volume 92 fl (79-97); Red Blood Count 4.26 M/mm3 (3.65-5.03); Red Cell Distribution Width 17.5 % (13.2-15.2); White Blood Count 7.1 K/mm3 (4.5-11.0)
[2017-02-15 18:27] LABS: Hematocrit 39.3 % (30.3-42.9); Hemoglobin 11.8 gm/dl (10.1-14.3)
[2017-02-15 19:01] LABS: Platelet Count 19 K/mm3 (140-440)
[2017-02-15 19:37] LABS: Mean Corpuscular HGB Conc 30 % (30-34); Mean Corpuscular Hemoglobin 28 pg (28-32); Mean Corpuscular Volume 94 fl (79-97); Red Cell Distribution Width 17.7 % (13.2-15.2); White Blood Count 6.9 K/mm3 (4.5-11.0)
[2017-02-15 19:38] LABS: Hemoglobin 11.9 gm/dl (10.1-14.3)
[2017-02-15 19:39] LABS: Hematocrit 39.5 % (30.3-42.9)
[2017-02-15 19:42] LABS: Platelet Count 16 K/mm3 (140-440)
[2017-02-15 20:23] LABS: Basophils % (Manual) 0 % (0.0-1.8); Blastocytes % (Manual) 0 %
[2017-02-15 20:24] LABS: Anisocytosis 1+; Macrocytosis 1+; Ovalocytes 1+; Platelet Estimate Appears Decreased; Poikilocytosis 1+
[2017-02-15 20:25] LABS: Diff Status Complete
[2017-02-16 06:09] LABS: Hemoglobin 11.6 gm/dl (10.1-14.3); Mean Corpuscular HGB Conc 31 % (30-34); Mean Corpuscular Hemoglobin 29 pg (28-32); Mean Corpuscular Volume 91 fl (79-97); Red Blood Count 4.06 M/mm3 (3.65-5.03); Red Cell Distribution Width 17.1 % (13.2-15.2)
[2017-02-16 06:26] LABS: Platelet Count 14 K/mm3 (140-440)
[2017-02-16 06:29] LABS: Calcium 9.5 mg/dL (8.4-10.2); Chloride 101.3 mmol/L (98-107); Potassium 3.7 mmol/L (3.6-5.0)
[2017-02-16] MEDS: DOLOPHINE PO SCH ×2 (09:54→09:55)
[2017-02-16] MEDS: COREG PO SCH (09:56)
[2017-02-16] MEDS: REMERON PO SCH (09:57)
[2017-02-16] MEDS: PROTONIX PO SCH (09:57)
[2017-02-16] MEDS: Renal Caps PO SCH (09:58)
[2017-02-16] MEDS ORDERED: HEPARIN IV PRN (12:00)
[2017-02-16] MEDS ORDERED: NACL 0.9% 100 ML IV PRN (12:00)
--- NOTE | 2017-02-16 12:19 | Progress Note ---
Assessment and Plan Assessment and plan: Abdominal pain. Check CT of abdomen and pelvis without contrast. Diarrhea, severe due to recent chemo. Stool for WBC, c diff and stool culture is negative. Continue iv fluids as per Nephrology. ESRD on hemodialysis. Nephrology following. Dialysis not done on Sat because she is dehydrated. Discussed with Nephrology Dehydration due to diarrhea. Continue iv fluids Acute gastroenteritis with diarrhea, likely from chemotherapy. Hypokalemia. Resolved. Multiple myeloma. Had recent chemo, on 02/11/[address] NARVAEZ, Oncologist Thrombocytopenia. Check HIT. Follow with Dr. NARVAEZ as outpatient. DVT prophylaxis. SCDs only because of thromboctyopenia. Gen weakness. PT/OT eval pending Full code status History Interval history: No new issues overnight. Hospitalist Physical - Constitutional Vitals: Temp Pulse Resp BP Pulse Ox 97.8 F 77 20 145/94 99 02/16/17 07:52 02/16/17 09:56 02/16/17 07:52 02/16/17 09:56 02/16/17 07:52 General appearance: Present: no acute distress, well-nourished - EENT Eyes: Present: PERRL, EOM intact ENT: hearing intact, clear oral mucosa, dentition normal - Neck Neck: Present: supple, normal ROM - Respiratory Respiratory effort: normal Respiratory: bilateral: CTA - Cardiovascular Rhythm: regular Heart Sounds: Present: S1 & S2. Absent: gallop, rub - Extremities Extremities: no ischemia, No edema, Full ROM - Abdominal General gastrointestinal: soft, tender, non-distended, normal bowel sounds Localized gastrointestinal: tender: LUQ (mild), RLQ (mild) - Integumentary Integumentary: Present: clear, warm, dry - Neurologic Neurologic: CNII-XII intact, moves all extremities Results - Labs CBC & Chem 7: 02/16/17 05:52 02/16/17 05:52 Labs: Laboratory Last Values WBC 6.0 K/mm3 (4.5-11.0) 02/16/17 05:52 RBC 4.06 M/mm3 (3.65-5.03) 02/16/17 05:52 Hgb 11.6 gm/dl (10.1-14.3) 02/16/17 05:52 Hct 37.0 % (30.3-42.9) 02/16/17 05:52 MCV 91 fl (79-97) 02/16/17 05:52 MCH 29 pg (28-32) 02/16/17 05:52 MCHC 31 % (30-34) 02/16/17 05:52 RDW 17.1 % (13.2-15.2) H 02/16/17 05:52 Plt Count 14 K/mm3 (140-440) L* 02/16/17 05:52 [place] % (Auto) Photo Studio Assistant 02/15/17 19:20 Add Manual Diff Complete 02/15/17 19:20 Total Counted 100 02/15/17 19:20 Seg Neuts % (Manual) 41.0 % (40.0-70.0) 02/15/17 19:20 Band Neutrophils % 3.0 % 02/15/17 19:20 Lymphocytes % (Manual) 41.0 % (13.4-35.0) H 02/15/17 19:20 Reactive Lymphs % (Man) 0 % 02/15/17 19:20 Monocytes % (Manual) 13.0 % (0.0-7.3) H 02/15/17 19:20 Eosinophils % (Manual) 1.0 % (0.0-4.3) 02/15/17 19:20 Basophils % (Manual) 0 % (0.0-1.8) 02/15/17 19:20 Metamyelocytes % 1.0 % 02/15/17 19:20 Myelocytes % 0 % 02/15/17 19:20 Promyelocytes % 0 % 02/15/17 19:20 Blast Cells % 0 % 02/15/17 19:20 Nucleated RBC % Not Reportable 02/15/17 19:20 Seg Neutrophils # Man 2.8 K/mm3 (1.8-7.7) 02/15/17 19:20 Band Neutrophils # 0.2 K/mm3 02/15/17 19:20 Lymphocytes # (Manual) 2.8 K/mm3 (1.2-5.4) 02/15/17 19:20 Abs React Lymphs (Man) 0.0 K/mm3 02/15/17 19:20 Monocytes # (Manual) 0.9 K/mm3 (0.0-0.8) H 02/15/17 19:20 Eosinophils # (Manual) 0.1 K/mm3 (0.0-0.4) 02/15/17 19:20 Basophils # (Manual) 0.0 K/mm3 (0.0-0.1) 02/15/17 19:20 Metamyelocytes # 0.1 K/mm3 02/15/17 19:20 Myelocytes # 0.0 K/mm3 02/15/17 19:20 Promyelocytes # 0.0 K/mm3 02/15/17 19:20 Blast Cells # 0.0 K/mm3 02/15/17 19:20 WBC Morphology Not Reportable 02/15/17 19:20 Hypersegmented Neuts Not Reportable 02/15/17 19:20 Hyposegmented Neuts Not Reportable 02/15/17 19:20 Hypogranular Neuts Not Reportable 02/15/17 19:20 Smudge Cells Not Reportable 02/15/17 19:20 Toxic Granulation Not Reportable 02/15/17 19:20 Toxic Vacuolation Not Reportable 02/15/17 19:20 Dohle Bodies Not Reportable 02/15/17 19:20 Pelger-Huet Anomaly Not Reportable 02/15/17 19:20 [place] Rods Not Reportable 02/15/17 19:20 Platelet Estimate Appears decreased 02/15/17 19:20 Clumped Platelets Not Reportable 02/15/17 19:20 Plt Clumps, EDTA Not Reportable 02/15/17 19:20 Large Platelets Not Reportable 02/15/17 19:20 Giant Platelets Not Reportable 02/15/17 19:20 Platelet Satelliting Not Reportable 02/15/17 19:20 Plt Morphology Comment Not Reportable 02/15/17 19:20 RBC Morphology Not Reportable 02/15/17 19:20 Dimorphic RBCs Not Reportable 02/15/17 19:20 Polychromasia Not Reportable 02/15/17 19:20 Hypochromasia Not Reportable 02/15/17 19:20 Poikilocytosis 1+ 02/15/17 19:20 Anisocytosis 1+ 02/15/17 19:20 Microcytosis Not Reportable 02/15/17 19:20 Macrocytosis 1+ 02/15/17 19:20 Spherocytes Not Reportable 02/15/17 19:20 Pappenheimer Bodies Not Reportable 02/15/17 19:20 Sickle Cells Not Reportable 02/15/17 19:20 Target Cells Not Reportable 02/15/17 19:20 Tear Drop Cells Not Reportable 02/15/17 19:20 Ovalocytes 1+ 02/15/17 19:20 Helmet Cells Not Reportable 02/15/17 19:20 Sorto-[place] Bodies Not Reportable 02/15/17 19:20 [place] Rings Not Reportable 02/15/17 19:20 [place] Cells Not Reportable 02/15/17 19:20 Bite Cells Not Reportable 02/15/17 19:20 Crenated Cell Not Reportable 02/15/17 19:20 Elliptocytes Not Reportable 02/15/17 19:20 Acanthocytes (Spur) Not Reportable 02/15/17 19:20 Rouleaux Not Reportable 02/15/17 19:20 Hemoglobin C Crystals Not Reportable 02/15/17 19:20 Schistocytes Not Reportable 02/15/17 19:20 Malaria parasites Not Reportable 02/15/17 19:20 Ovidio Bodies Not Reportable 02/15/17 19:20 Hem Pathologist Commnt No 02/15/17 19:20 PT 16.0 Sec. (12.2-14.9) H 02/12/17 14:50 INR 1.22 (0.87-1.13) H 02/12/17 14:50 APTT 34.5 Sec. (24.2-36.6) 02/12/17 14:50 Sodium 137 mmol/L (137-145) 02/16/17 05:52 Potassium 3.7 mmol/L (3.6-5.0) 02/16/17 05:52 Chloride 101.3 mmol/L (98-107) 02/16/17 05:52 Carbon Dioxide 23 mmol/L (22-30) 02/16/17 05:52 Anion Gap 16 mmol/L 02/16/17 05:52 BUN 28 mg/dL (7-17) H 02/16/17 05:52 Creatinine 7.9 mg/dL (0.7-1.2) H 02/16/17 05:52 Estimated GFR 6 ml/min 02/16/17 05:52 BUN/Creatinine Ratio 4 % 02/16/17 05:52 Glucose 115 mg/dL (65-100) H 02/16/17 05:52 POC Glucose 123 (70-105) H 02/16/17 07:51 Calcium 9.5 mg/dL (8.4-10.2) 02/16/17 05:52 Phosphorus 2.30 mg/dL (2.5-4.5) L 02/13/17 12:44 Magnesium 2.00 mg/dL (1.7-2.3) 02/13/17 12:44 Total Bilirubin 0.20 mg/dL (0.1-1.2) 02/12/17 14:57 Direct Bilirubin < 0.2 mg/dL (0-0.2) 02/12/17 14:57 Indirect Bilirubin 0.0 mg/dL 02/12/17 14:57 AST 20 units/L (5-40) 02/12/17 14:57 ALT 9 units/L (7-56) 02/12/17 14:57 Alkaline Phosphatase 57 units/L (35-129) 02/12/17 14:57 Total Protein 5.0 g/dL (6.3-8.2) L 02/12/17 14:57 Albumin 2.8 g/dL (3.9-5) L 02/12/17 14:57 Albumin/Globulin Ratio 1.3 % 02/12/17 14:57 Urine Color Yellow (Yellow) 02/13/17 11:30 Urine Turbidity Clear (Clear) 02/13/17 11:30 Urine pH 7.0 (5.0-7.0) 02/13/17 11:30 Ur Specific [place] 1.010 (1.003-1.030) 02/13/17 11:30 Urine Protein 100 mg/dl mg/dL (Negative) 02/13/17 11:30 Urine Glucose (UA) Negative mg/dL (Negative) 02/13/17 11:30 Urine Ketones Negative mg/dL (Negative) 02/13/17 11:30 Urine Blood Negative (Negative) 02/13/17 11:30 Urine Nitrite Negative (Negative) 02/13/17 11:30 Urine Bilirubin Negative (Negative) 02/13/17 11:30 Urine Urobilinogen < 2.0 mg/dL (<2.0) 02/13/17 11:30 Ur Leukocyte Esterase Negative (Negative) 02/13/17 11:30 Urine WBC (Auto) 7.0 /HPF (0.0-6.0) H 02/13/17 11:30 Urine RBC (Auto) 3.0 /HPF (0.0-6.0) 02/13/17 11:30 U Epithel Cells (Auto) 1.0 /HPF (0-13.0) 02/13/17 11:30 Ur Transition Epith Cell 1 /HPF 02/13/17 11:30 Urine Mucus Few /HPF 02/13/17 11:30
--- NOTE | 2017-02-16 12:51 | Progress Note ---
Assessment and Plan - Patient Problems (1) ESRD (end stage renal disease) Current Visit: Yes Status: Acute Plan to address problem: HD today with 3K bath, no ultrafiltration, no Heparin for HD. Pt has significant thrombocytopenia (2) Acute diarrhea Current Visit: Yes Status: Acute (3) Hypokalemia Current Visit: Yes Status: Acute Plan to address problem: improving (4) Hypotension Current Visit: Yes Status: Resolved Qualifiers: Hypotension type: H Trimester: T (5) Multiple myeloma Current Visit: Yes Status: Acute Qualifiers: Multiple myeloma remission status: M (6) Thrombocytopenia Current Visit: Yes Status: Acute Plan to address problem: consider hematolgy follow up (7) Malnutrition Current Visit: No Status: Acute Qualifiers: Malnutrition type: M Protein-calorie malnutrition severity: P Subjective Date of service: 02/16/17 Interval history: alert, oriented, feels weak, diarrhoea better, I feel dizzy on standing Objective - Vital Signs Vital signs: Vital Signs - 12hr 02/16/17 02/16/17 02/16/17 04:59 07:52 08:05 Temperature 98.0 F 97.8 F Pulse Rate 78 77 Respiratory 18 20 Rate Blood Pressure 134/87 Blood Pressure 145/94 [Left] O2 Sat by Pulse 99 99 Oximetry 02/16/17 02/16/17 09:56 10:00 Temperature Pulse Rate 77 78 Respiratory Rate Blood Pressure 145/94 Blood Pressure [Left] O2 Sat by Pulse Oximetry - General Appearance General appearance: chronically ill EENT: mucous membranes dry Neck: no JVD Respiratory: Present: Clear to Ascultation Cardiology: regular, systolic murmur Gastrointestinal: normoactive bowel sounds Neurologic: alert and oriented x3 Musculoskeletal: other (no edema) Psychiatric: cooperative - Lab 02/16/17 05:52 02/16/17 05:52 Most recent lab results Calcium 9.5 mg/dL (8.4-10.2) 02/16/17 05:52 Phosphorus 2.30 mg/dL (2.5-4.5) L 02/13/17 12:44 Magnesium 2.00 mg/dL (1.7-2.3) 02/13/17 12:44
[2017-02-16] MEDS ORDERED: NACL 0.9 (PRIMING MACHINE ONLY DIALYSIS) MC ONE (16:50)
[2017-02-17 04:23] LABS: Hematocrit 33.9 % (30.3-42.9); Hemoglobin 10.8 gm/dl (10.1-14.3); Mean Corpuscular HGB Conc 32 % (30-34); Mean Corpuscular Hemoglobin 29 pg (28-32); Mean Corpuscular Volume 89 fl (79-97); Red Cell Distribution Width 16.6 % (13.2-15.2); White Blood Count 5.3 K/mm3 (4.5-11.0)
[2017-02-17 04:47] LABS: Calcium 8.4 mg/dL (8.4-10.2); Chloride 102.6 mmol/L (98-107); Potassium 3.9 mmol/L (3.6-5.0)
[2017-02-17 04:49] LABS: Platelet Count 40 K/mm3 (140-440)
[2017-02-17] MEDS: COREG PO SCH (05:10)
[2017-02-17 05:23] LABS: Blastocytes % (Manual) 0 %
[2017-02-17 05:24] LABS: Diff Status Complete; Platelet Estimate Appears Decreased; Target Cells Few
--- NOTE | 2017-02-17 08:00 | Discharge Summary ---
Providers - Providers Date of Admission: 02/12/17 17:57 Date of discharge: 02/17/17 Attending physician: ALEJANDRO TOSCANO 02/15/17 12:57 Consult to Wound/ET Nurse [CONS] Routine Reason For Exam: wound eval 02/15/17 14:02 Physical Therapy Evaluation and Treat [CONS] Routine Comment: Reason For Exam: Gen weakness 02/15/17 19:08 Consult to Physician [CONS] Routine Consulting Provider: LEENA BENSON Reason For Exam: Thrombocytopenia Place consult to:: LEENA STOVER Notified:: LEENA HAN Phone number called:: [phone] Was contact made?: Yes If yes, spoke with:: JAIME Time called:: 19:24 Comment:: ELISE 02/16/17 11:43 Consult to Dietitian/Nutrition [CONS] Routine Physician Instructions: Reason For Exam: Reason for Consult: Pt needs oral supplement 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 Pt also had generalized weakness and reported recent chemotherapy for multiple myeloma. Patient denies chest pain, palpitation, shortness of breath, cough, abdominal pain, hematochezia, dysuria, frequency, focal weakness, dysarthria, fever chills , polydipsia polyuria, hot or cold intolerance, easy bruisability, or rash or bleeding from mucosal membrane, rhinorrhea, epistaxis, earache, tinnitus, blurry vision, eye discharge, anxiety, depression. The diarrhea was worked up and stool WBC, C. difficile and culture were found to be negative. The patient received supportive care with IV fluid hydration. Patient was also noted to have thrombocytopenia during hospital stay, which improved. Etiology likely secondary to multiple myeloma/chemotherapy. HIT panel was obtained and will be followed up Dr. Benson. Patient was seen by nephrology and underwent her scheduled hemodialysis for ESRD. CT scan of the abdomen revealed no acute findings or new findings other than mild ascites/fluid. PT evaluation recommended home health physical therapy with 24-hour supervision versus rehabilitation. Family opted for home health PT. Dedicated discharge time 32 minutes. Disposition: DC-01 TO HOME OR SELFCARE Time spent for discharge: 32 - Discharge Diagnoses (1) Acute diarrhea Status: Acute (2) ESRD (end stage renal disease) on dialysis Status: Acute (3) Gastroenteritis Status: Acute (4) Hypokalemia Status: Acute (5) Multiple myeloma Status: Acute Qualifiers: Multiple myeloma remission status: M (6) Thrombocytopenia Status: Acute Core Measure Documentation - Palliative Care Palliative Care/ Comfort Measures: Not Applicable - Core Measures Any of the following diagnoses?: none Exam - Constitutional Vitals: Temp Pulse Resp BP Pulse Ox 98.1 F 85 20 150/83 99 02/16/17 18:10 02/17/17 05:10 02/16/17 18:10 02/17/17 05:10 02/16/17 07:52 General appearance: Present: no acute distress, well-nourished - EENT Eyes: Present: PERRL ENT: hearing intact, clear oral mucosa - Neck Neck: Present: supple, normal ROM - Respiratory Respiratory effort: normal Respiratory: bilateral: CTA - Cardiovascular Heart Sounds: Present: S1 & S2. Absent: rub, click - Extremities Extremities: pulses symmetrical, No edema Peripheral Pulses: within normal limits - Abdominal General gastrointestinal: Present: soft, non-tender, non-distended, normal bowel sounds Female genitourinary: Present: normal - Integumentary Integumentary: Present: clear, warm, dry - Musculoskeletal Musculoskeletal: gait normal, strength equal bilaterally - Psychiatric Psychiatric: appropriate mood/affect, intact judgment & insight - Neurologic Neurologic: CNII-XII intact, moves all extremities Plan Activity: no restrictions Weight Bearing Status: Full Weight Bearing Special Instructions: home health RN Follow up with: JAMAL SAMPSON MD [Primary Care Provider] - 7 Days LEENA BENSON MD [Staff Physician] - 7 Days Prescriptions: ALPRAZolam [Xanax TAB] 0.5 mg PO BID PRN #60 tablet PRN Reason: Anxiety B Complex 11/Folic/C/Biot/Zinc [Dialyvite with Zinc Tablet] 1 each PO DAILY #30 tablet Carvedilol [Coreg] 25 mg PO BID #60 tablet HYDROmorphone [Dilaudid] 2 mg PO Q4HR PRN #15 tablet PRN Reason: Pain Methadone [Dolophine] 5 mg PO Q12H #20 tablet Mirtazapine [Remeron] 15 mg PO DAILY #30 tablet Verapamil ER [Calan SR] 180 mg PO DAILY #30 tablet
[2017-02-17 08:08] VITALS: BP 135/98
--- NOTE | 2017-02-17 09:20 | Cat Scan Report ---
CT ABDOMEN AND PELVIS WITHOUT CONTRAST INDICATION: Abdominal pain. COMPARISON: 10/20/2016 FINDINGS: Abdomen and pelvis CT performed following oral contrast only. LUNG BASES: Slight bibasilar bronchiectasis with new small bilateral pleural effusions and underlying atelectasis/consolidation. Slight cardiac enlargement, more so the left ventricle. Anemia not excluded. Central artifact about the cavoatrial junction is new. Multiple extrinsic streak artifacts also limit exam. Right hemidiaphragm now mildly elevated. ABDOMEN: Please note that sensitivity to detect small visceral lesions is limited due to the absence of intravenous contrast. Left hepatic lobe tip again extends into the left upper quadrant and wraps around the spleen. Approximately 1.7 cm left hepatic 20 HU hypodensity, axial image 70, series 2, not as clearly seen before. Otherwise grossly unremarkable unenhanced liver, spleen, pancreas, adrenals, nonaneurysmal abdominal aorta, IVC and non-hydronephrotic kidneys. No radiopaque renal calculi, though approximately 1.2 cm right interpolar hypodense 16 HU renal cyst again demonstrates small peripheral calcification, axial image 129, series 2. Stable cholecystectomy clips. Mild diffuse mesenteric and retroperitoneal fat stranding is new with mild Chávez's pouch fluid. Oral contrast noted within nonobstructed colon. Non-opacified small bowel evaluation limited, though grossly nonobstructive. Diffuse exaggerated gastric wall thickening presumed due to nondistention. Few small ascending colon diverticuli may again be present. PELVIS: Mild sigmoid diverticulosis. Mild increased right hemipelvic free fluid measuring 23 HU, axial image 265. Presacral stranding/fluid is also new. Uterus, adnexa/ovaries and non-opacified urinary bladder grossly within normal limits. No definite size significant adenopathy. New diffuse moderate subcutaneous edema. Slightly heterogeneous, possibly demineralized bones. Multilevel spinal degenerative spurring, greatest lower thoracic and lower lumbar. Greatest facet arthropathy at L3-L4 and L4-L5 bilaterally. Left SI joint degenerative bridging as well. CONCLUSION: 1. Overall interval worsening with diffuse subcutaneous edema, small bibasilar pleural effusions/atelectasis, small pelvic ascites and mesenteric/retroperitoneal fluid/stranding now noted, as detailed above. 2. Various other findings as at the lung bases, cholecystectomy clips, left hepatic and right renal hypodensities, exaggerated gastric wall thickness and few spinal degenerative changes, amongst others, as above. Thank you for the opportunity to participate in this patient's care.
[2017-02-17] MEDS: XANAX PO PRN (09:51)
[2017-02-17] MEDS: DOLOPHINE PO SCH (10:07)
[2017-02-17] MEDS: PROTONIX PO SCH (10:11)
[2017-02-17] MEDS: REMERON PO SCH (10:11)
[2017-02-17] MEDS: Renal Caps PO SCH (10:12)
--- NOTE | 2017-02-17 13:46 | Progress Note ---
Subjective Date of service: 02/17/17 Objective - Vital Signs Vital signs: Vital Signs - 12hr 02/17/17 02/17/17 05:10 08:05 Temperature 99.2 F Pulse Rate 85 92 H Respiratory 20 Rate Blood Pressure 150/83 135/98 O2 Sat by Pulse 99 Oximetry - Lab 02/17/17 03:53 02/17/17 03:53 Most recent lab results Calcium 8.4 mg/dL (8.4-10.2) 02/17/17 03:53 Phosphorus 2.30 mg/dL (2.5-4.5) L 02/13/17 12:44 Magnesium 2.00 mg/dL (1.7-2.3) 02/13/17 12:44
[2017-02-19 16:47] LABS: Heparin-Induced Platelet Antib Negative (Negative); Unfractionated Heparin Negative (Negative)
== END 2017-02-17 11:30 | disposition home or self-care (01) | DRG 393 ==
LOC: ED 12:26 → 2B-ACE 17:57
PROVIDERS: ADMIT Internal Medicine; ATTEND Hospitalist
PROC: 5A1D70Z Performance of Urinary Filtration, Intermittent, Less than 6 Hours Per Day (ICD-10-PCS; principal; 2017-02-16)
DX: K52.1 Toxic gastroenteritis and colitis (principal); N18.6 End stage renal disease; C90.00 Multiple myeloma not having achieved remission; I12.0 Hypertensive chronic kidney disease with stage 5 chronic kidney disease or end stage renal disease; E46 Unspecified protein-calorie malnutrition; E86.0 Dehydration; D69.59 Other secondary thrombocytopenia; T45.1X5A Adverse effect of antineoplastic and immunosuppressive drugs, initial encounter; I95.9 Hypotension, unspecified; E87.6 Hypokalemia; D63.1 Anemia in chronic kidney disease; Z79.899 Other long term (current) drug therapy; Z68.22 Body mass index [BMI] 22.0-22.9, adult; Z99.2 Dependence on renal dialysis; Y92.89 Other specified places as the place of occurrence of the external cause
CPT/HCPCS: 36415; 74176; 80048; 80074; 81001; 82270; 82962; 83735; 84100; 84132; 85007; 85025; 85027; 85610; 85730; 86022; 87045; 87493; 96360; G8978-GP; G8979-GP; J1644; J2405; J3480; J7030; J7040

== ENCOUNTER 2017-04-14 12:34 | Emergency (ER) | payer MEDICARE ==
--- NOTE | 2017-04-14 13:11 | Emergency Department Report ---
- General Chief complaint: Weakness Stated complaint: HYPOTENSION Time Seen by Provider: 04/14/17 13:04 Source: patient, EMS Mode of arrival: Stretcher Limitations: No Limitations - History of Present Illness Initial comments: . Patient is a 66-year-old female who is presenting with hypotension from dialysis. Patient was noted to have a blood pressure of 78/50 dialysis. Patient did not receive dialysis but was transported here. Patient' s only complaint is fatigue tiredness as well as right sided weakness. Patient states that she woke up with right-sided weakness. Patient denies having stroke symptoms in the past. Patient is denies nausea vomiting diarrhea. Patient's daughter on arrival gave additional history that the patient has not been eating and drinking well chronically patient has not missed any doses of her medications patient has a history of end-stage renal disease patient receives dialysis Wednesday. MD Complaint: generalized weakness, focal weakness Severity scale (0 -10): 0 Associated Symptoms: confusion. denies: chest pain, dark stools, diaphoresis, easy bruising, fever/chills, headaches, loss of appetite, nausea/vomiting, shortness of breath - Related Data Home Medications Medication Instructions Recorded Confirmed Last Taken Ondansetron [Zofran Odt] 4 mg PO Q8H PRN 02/12/17 02/12/17 Unknown Previous Rx's Medication Instructions Recorded Last Taken Type Omeprazole 40 mg PO DAILY #30 capsule. 10/23/16 02/11/17 Rx ALPRAZolam [Xanax TAB] 0.5 mg PO BID PRN #60 tablet 02/17/17 Unknown Rx B Complex 11/Folic/C/Biot/Zinc 1 each PO DAILY #30 tablet 02/17/17 Unknown Rx [Dialyvite with Zinc Tablet] Carvedilol [Coreg] 25 mg PO BID #60 tablet 02/17/17 Unknown Rx HYDROmorphone [Dilaudid] 2 mg PO Q4HR PRN #15 tablet 02/17/17 Unknown Rx Methadone [Dolophine] 5 mg PO Q12H #20 tablet 02/17/17 Unknown Rx Mirtazapine [Remeron] 15 mg PO DAILY #30 tablet 02/17/17 Unknown Rx Verapamil ER [Calan SR] 180 mg PO DAILY #30 tablet 02/17/17 Unknown Rx Allergies Allergy/AdvReac Type Severity Reaction Status Date / Time No Known Allergies Allergy Verified 10/19/16 15:54 ED Review of Systems ROS: Stated complaint: HYPOTENSION Other details as noted in HPI Comment: All other systems reviewed and negative ED Past Medical Hx - Past Medical History Hx Hypertension: Yes Hx Renal Disease: Yes (HD MWF) Hx Arthritis: Yes Hx HIV: No Additional medical history: Multiple Myeloma. Anemia, arthritis - Surgical History Hx Cholecystectomy: Yes Additional Surgical History: VAS cath to right chest - Social History Smoking Status: Never Smoker - Medications Home Medications: Home Medications Medication Instructions Recorded Confirmed Last Taken Type Omeprazole 40 mg PO DAILY #30 capsule. 10/23/16 02/12/17 02/11/17 Rx Ondansetron [Zofran Odt] 4 mg PO Q8H PRN 02/12/17 02/12/17 Unknown History ALPRAZolam [Xanax TAB] 0.5 mg PO BID PRN #60 tablet 02/17/17 Unknown Rx B Complex 11/Folic/C/Biot/Zinc 1 each PO DAILY #30 tablet 02/17/17 Unknown Rx [Dialyvite with Zinc Tablet] Carvedilol [Coreg] 25 mg PO BID #60 tablet 02/17/17 Unknown Rx HYDROmorphone [Dilaudid] 2 mg PO Q4HR PRN #15 tablet 02/17/17 Unknown Rx Methadone [Dolophine] 5 mg PO Q12H #20 tablet 02/17/17 Unknown Rx Mirtazapine [Remeron] 15 mg PO DAILY #30 tablet 02/17/17 Unknown Rx Verapamil ER [Calan SR] 180 mg PO DAILY #30 tablet 02/17/17 Unknown Rx ED Physical Exam - General Limitations: No Limitations General appearance: alert, in no apparent distress - Head Head exam: Present: atraumatic, normocephalic - Eye Eye exam: Present: normal appearance - ENT ENT exam: Present: mucous membranes dry - Neck Neck exam: Present: normal inspection - Respiratory Respiratory exam: Present: normal lung sounds bilaterally. Absent: respiratory distress, wheezes, rales, rhonchi - Cardiovascular Cardiovascular Exam: Present: regular rate, normal rhythm. Absent: systolic murmur, diastolic murmur, rubs, gallop - GI/Abdominal GI/Abdominal exam: Present: soft, normal bowel sounds. Absent: distended, tenderness, guarding, rebound - Extremities Exam Extremities exam: Present: normal inspection - Back Exam Back exam: Present: normal inspection - Neurological Exam Neurological exam: Present: alert, oriented X3, motor sensory deficit (patient has decreased ability to lift her right arm against gravity) - Psychiatric Psychiatric exam: Present: normal affect, normal mood - Skin Skin exam: Present: warm, dry, intact, normal color. Absent: rash - Level of Consciousness 1a. Level of Consciousness: alert - LOC Questions 1b. LOC Questions: answers correctly - LOC Command 1c. LOC Commands: performs tasks correctly - Best Gaze 2. Best Gaze: normal - Visual 3. Visual: no visual loss - Facial Palsy 4. Facial Palsy: normal symmetrical movement - Motor Arm 5b. Motor Arm Right: drift 5a. Motor Arm Left: no drift - Motor Leg 6a. Motor Leg Left: some gravity effort 6b. Motor Leg Right: some gravity effort - Limb Ataxia 7. Limb Ataxia: absent - Sensory 8. Sensory: normal - Best Language 9. Best Language: no aphasia - Dysarthria 10. Dysarthria: normal - Extinction and Inattention 11. Extinction/Inattention: no abnormality - Scoring Total Score: 5 Stroke Severity: Moderate Stroke ED Course Vital Signs 04/14/17 04/14/17 12:53 15:02 Temperature 97.7 F Pulse Rate 71 70 Respiratory 15 16 Rate Blood Pressure 76/50 Blood Pressure 76/50 112/70 [Right] O2 Sat by Pulse 99 100 Oximetry - Reevaluation(s) Reevaluation #1: 04/14/17 16:23 She was hydrated emergency department her blood pressure did respond nicely to IV fluids 04/14/17 16:26 04/14/17 16:57 Patient on arrival is outside of the window for TPA ED Medical Decision Making - Lab Data Result diagrams: 04/14/17 15:00 04/14/17 15:00 - EKG Data -: EKG Interpreted by Me EKG shows normal: sinus rhythm, axis, intervals, QRS complexes, ST-T waves Rate: normal - EKG Data Interpretation: no acute changes, normal EKG - Radiology Data Radiology results: report reviewed No acute intracranial parenchymal bleed. No acute ischemic changes. There are chronic ischemic changes present - Medical Decision Making Patient was on arrival was hypotensive patient was given IV hydration and blood pressure has improved and has stayed within normal limits. Patient was reevaluated several hours after arrival patient's right sided weakness has resolved. I had a long discussion with the patient as well as her daughter regarding the fact that it may be unsafe to send her home after being hypotensive and showing neurological symptoms. Patient's troponin was also elevated slightly. Patient is denying any chest pain. We discussed that the patient could have had a silent HI but also could have elevation of her troponin is secondary to her renal failure. I have recommended admission. Patient and her daughter state that she would be rest at home and they will follow with her primary care physician tomorrow. Patient will be signing out AGAINST MEDICAL ADVICE at this time. Critical care time in (mins) excluding proc time.: 30 Critical care attestation.: If time is entered above; I have spent that time in minutes in the direct care of this critically ill patient, excluding procedure time. ED Disposition Clinical Impression: Elevated troponin, Weakness, ESRD (end stage renal disease) on dialysis Hypotension Qualifiers: Hypotension type: other hypotension type Qualified Code(s): I95.89 - Other hypotension TIA (transient ischemic attack) Qualifiers: Transient cerebral ischemia type: unspecified Qualified Code(s): G45.9 - Transient cerebral ischemic attack, unspecified Disposition: [id number] LEFT AGAINST MED ADVICE Is pt being admited?: No Does the pt Need Aspirin: No Condition: Stable Instructions: Transient Ischemic Attack (ED), Chronic Kidney Disease (ED) Referrals: PRIMARY CARE, [Primary Care Provider] - 3-5 Days
[2017-04-14] MEDS ORDERED: NACL 0.9% 500 ML 500 ML IV ONE (13:13)
--- NOTE | 2017-04-14 14:00 | XRay Report ---
AP CHEST: HISTORY: Weakness A right IJ dual-lumen catheter has been inserted since 02/08/17. AP view of the chest demonstrates a normal mediastinal and cardiac contour with clear lungs and normal bony and soft tissue structures. IMPRESSION: Unremarkable AP chest.
--- NOTE | 2017-04-14 14:35 | Cat Scan Report ---
CT HEAD WITHOUT CONTRAST: HISTORY: Stroke. TECHNIQUE: Sequential CT images without contrast. FINDINGS: Images obtained show bilateral prominence of the sulci and ventricles. There are no abnormal intra- or extra-axial blood or fluid collections. There are no focal masses or evidence of mass effect. The denson white matter differentiation appears within normal limits. Regions of periventricular decreased attenuation are consistent with microangiopathic ischemic disease. Chronic focal infarct in the lateral right thalamus measures 0.9 x 1.7 cm. The posterior fossa structures including the fourth ventricle, cerebellum, and brainstem appear normal. IMPRESSION: Evidence of atrophy and microangiopathic ischemic disease. Chronic right thalamic infarct. No acute intracranial process noted.
[2017-04-14 15:37] LABS: Basophils % (Auto) 0.5 % (0.0-1.8); Eosinophils % (Auto) 0.1 % (0.0-4.3); Hematocrit 34.3 % (30.3-42.9); Hemoglobin 10.9 gm/dl (10.1-14.3); Lymphocytes # (Auto) 0.7 K/mm3 (1.2-5.4); Mean Corpuscular HGB Conc 32 % (30-34); Mean Corpuscular Hemoglobin 29 pg (28-32); Mean Corpuscular Volume 92 fl (79-97); Monocytes # (Auto) 0.5 K/mm3 (0.0-0.8); Monocytes % (Auto) 11.6 % (0.0-7.3); Platelet Count 159 K/mm3 (140-440); Red Blood Count 3.75 M/mm3 (3.65-5.03); Red Cell Distribution Width 19.5 % (13.2-15.2)
[2017-04-14 15:47] LABS: INR 0.93 (0.87-1.13)
[2017-04-14 15:48] LABS: Partial Thromboplastin Time 30.9 Sec. (24.2-36.6); Thrombin Time 15.8 Sec. (15.1-19.6)
[2017-04-14 15:51] LABS: Creatine Kinase MB 1.2 ng/mL (0.0-4.0)
[2017-04-14 16:19] LABS: Calcium 9.1 mg/dL (8.4-10.2)
[2017-04-14] MEDS ORDERED: NACL 0.9% 1000 ML 1,000 ML IV ONE (16:23)
[2017-04-14 16:34] LABS: Chol/HDL Ratio 2.36 %
[2017-04-14 17:47] VITALS: BP 106/72
== END 2017-04-14 17:16 | disposition left against medical advice (07) ==
LOC: ED 12:34
DX: I95.89 Other hypotension (principal); I12.0 Hypertensive chronic kidney disease with stage 5 chronic kidney disease or end stage renal disease; N18.6 End stage renal disease; G45.9 Transient cerebral ischemic attack, unspecified; M19.90 Unspecified osteoarthritis, unspecified site; Z99.2 Dependence on renal dialysis; Z90.49 Acquired absence of other specified parts of digestive tract; Z86.2 Personal history of diseases of the blood and blood-forming organs and certain disorders involving the immune mechanism
CPT/HCPCS: 36415; 70450; 71045; 80053; 80061; 82550; 82553; 84484; 85025; 85610; 85670; 85730; 93005; 93010; 99291; J7040